=== PATIENT | male | born 1950 | race Caucasian/White ===

== ENCOUNTER → 2018-06-23 | Outpatient (CLI) | payer MEDICARE ==
--- NOTE | 2018-06-23 11:45 | US ---
EXAMINATION TYPE: US abdomen complete DATE OF EXAM: 06/23/2018 COMPARISON: CT chest December 09, 2011 CLINICAL HISTORY: R10.84 Abdominal Pain. Patient ate pulled pork and had bad indigestion about 2 week s ago, better now. LUQ pain for years after bypass surgery per patient. Spleen surgically removed at age 7 due to injury. Limited and difficult exam due to patient body habitus and overlying bowel gas EXAM MEASUREMENTS: Liver Length: 22 cm Gallbladder Wall: 0.2 cm CBD: 0.5 cm Spleen: Surgically absent Right Kidney: 12.8 x 5.8 x 5.3 cm Left Kidney: 12.3 x 6.0 x 5.7 cm Pancreas: Obscured by bowel gas Liver: Heterogenous. Echogenic. Enlarged. Two areas visualized adjacent to the gallbladder, largest measuring 2.5 x 0.6 x 2.3 cm, probable fatty sparring Gallbladder: wnl Evidence for sonographic Ruiz's sign: No CBD: wnl as visualized, distal portion obscured by bowel gas Spleen: Surgically absent. Within the splenic fossa, there is a cystic area of unknown etiology visu alized measuring 6.3 x 4.4 x 5.0 cm Right Kidney: No hydronephrosis. Cystic area lower pole measuring 4.3 x 3.5 x 3.5 cm Left Kidney: No hydronephrosis. Cystic area mid pole measuring 1.5 x 1.7 x 1.3 cm Upper IVC: wnl Abd Aorta: Obscured by bowel gas, limited visualization. Visualized portions show atherosclerotic ch anges. No sonographic evidence for AAA in visualized portions. Pancreas is obscured by overlying bowel gas on images saved. IVC is seen near hepatic dome. Visualize d liver is heterogeneously hyperechoic without intrahepatic ductal dilatation. Evaluation for focal m asses is suboptimal due to the heterogeneity. Findings favor diffuse fatty infiltration as there is s uggestion of sparing near gallbladder fossa. No shadowing mobile gallstones are seen in gallbladder. Technologist schmidt 4.3 cm simple appearing cyst lower pole level right kidney. Technologist schmidt sma ller 1.7 cm simple appearing cyst lower pole level left kidney. Residual splenosis on CT are identifi ed not clearly identified on ultrasound images saved, largest measures almost 5 cm axial image 64. IMPRESSION: Suboptimal study, diffuse fatty infiltration of liver is redemonstrated. Recurrent spleno sis is noted. No acute finding identified on images saved.
== END | disposition home or self-care (01) ==
LOC: RADUSWWP 08:38
PROVIDERS: ATTEND Internal Medicine Geriatric Medicine
DX: K76.0 Fatty (change of) liver, not elsewhere classified (principal); D73.89 Other diseases of spleen
CPT/HCPCS: 76700

== ENCOUNTER → 2018-08-11 | Outpatient (CLI) | payer MEDICARE ==
[2018-08-11 13:32] LABS: HCT 46.6 % (39.0-53.0); HGB 14.8 gm/dL (13.0-17.5); MCH 29.6 pg (25.0-35.0); MCHC 31.8 g/dL (31.0-37.0); MCV 93.1 fL (80.0-100.0); Mean Platelet Volume 7.1; Platelet Count 327 k/uL (150-450); RDW 13.7 % (11.5-15.5); WBC 10.1 k/uL (3.8-10.6)
[2018-08-11 13:46] LABS: Anion Gap 9 mmol/L; Blood Urea Nitrogen 22 mg/dL (9-20); Carbon Dioxide 27 mmol/L (22-30); Chloride 106 mmol/L (98-107); Potassium 4.3 mmol/L (3.5-5.1); Sodium 142 mmol/L (137-145)
== END ==
LOC: LABPAT 12:07
PROVIDERS: ATTEND Internal Medicine Interventional Cardiology
DX: Z01.812 Encounter for preprocedural laboratory examination (principal); I25.10 Atherosclerotic heart disease of native coronary artery without angina pectoris; I10 Essential (primary) hypertension; E78.2 Mixed hyperlipidemia
CPT/HCPCS: 80051; 82565; 84520; 85027

== ENCOUNTER → 2018-08-15 | Day surgery (SDC) | payer MEDICARE ==
[2018-08-12 09:50] VITALS: BMI 40.1
[~2018-08-15] MED LIST: ALPRAZolam 0.25 MG TAB PO PRN; ALPRAZolam 0.5 MG TAB PO PRN; ASPIRIN 325 MG TAB PO STA; ATORVASTATIN 80 MG TAB PO ONE; HEPARIN SODIUM 1,000 UN/ML (10ML VL) ONE; LIDOCAINE 1% INJ 10MG/ML (20 ML MDV) ONE; MIDAZOLAM 2 MG/2 ML VIAL ONE; NITROGLYCERIN SL TABS 0.4 MG TAB SUBLINGUAL PRN; SODIUM CHLORIDE 0.9% 1,000 ML IV ONE; SODIUM CHLORIDE 0.9% 1,000 ML in EMPTY BAG 1 BAG IV ONE; VERAPAMIL 2.5 MG/ML 2 ML AMP ONE; fentaNYL (PF) 50 MCG/ML 2 ML AMP ONE
[2018-08-15 10:52] VITALS: BP 134/75; PULSE 58; RESP 16; TEMP 97.7
[2018-08-15 11:13] LABS: Glucose,Whole Blood 117 mg/dL (75-99)
== END ==
LOC: CATHCVL 10:20
PROVIDERS: ATTEND Internal Medicine Interventional Cardiology
DX: Z53.9 Procedure and treatment not carried out, unspecified reason (principal)

== ENCOUNTER 2018-08-16 11:04 | Day surgery (SDC) | payer MEDICARE ==
[~2018-08-16 11:04] MED LIST changes: -ALPRAZolam 0.25 MG TAB PO PRN; -ALPRAZolam 0.5 MG TAB PO PRN; +ASPIRIN 325 MG TAB PO ONE; -ASPIRIN 325 MG TAB PO STA; -ATORVASTATIN 80 MG TAB PO ONE; -HEPARIN SODIUM 1,000 UN/ML (10ML VL) ONE; -LIDOCAINE 1% INJ 10MG/ML (20 ML MDV) ONE; -MIDAZOLAM 2 MG/2 ML VIAL ONE; -SODIUM CHLORIDE 0.9% 1,000 ML IV ONE; -VERAPAMIL 2.5 MG/ML 2 ML AMP ONE; -fentaNYL (PF) 50 MCG/ML 2 ML AMP ONE
[2018-08-16 11:47] VITALS: RESP 18
[2018-08-16] MEDS ORDERED: MIDAZOLAM 2 MG/2 ML VIAL IVP ONE ×2 (12:54→13:05)
[2018-08-16] MEDS ORDERED: LIDOCAINE 1% INJ 10MG/ML (20 ML MDV) SQ ONE (13:01)
[2018-08-16] MEDS ORDERED: fentaNYL (PF) 50 MCG/ML 2 ML AMP IVP ONE (13:02)
[2018-08-16] MEDS ORDERED: IOPAMIDOL-370 125ML BTL INJ ONE (13:25)
[2018-08-16] MEDS ORDERED: IOPAMIDOL-370 50ML BTL INJ ONE (13:33)
[2018-08-16] MEDS ORDERED: IOPAMIDOL-370 100ML BTL INJ ONE (13:35)
[2018-08-16] MEDS ORDERED: SODIUM CHLORIDE 0.9% 1,000 ML IV SCH (13:45)
[2018-08-16] MEDS ORDERED: RX INFO: IV CONTRAST WAS GIVEN 1 EACH MISC MISCELLANE PRN (13:45)
[2018-08-16] MEDS ORDERED: METOPROLOL TARTRATE 25 MG TAB PO STA (14:39)
[2018-08-16] MEDS ORDERED: LISINOPRIL 20 MG TAB PO STA (14:56)
[2018-08-16] MEDS ORDERED: hydrALAZINE HCL 20 MG/ML 1 ML VIAL ONE (16:25)
[2018-08-16] MEDS: hydrALAZINE HCL 20 MG/ML 1 ML VIAL IVP STA ×2 (16:30→16:31)
[2018-08-16] MEDS ORDERED: ACETAMINOPHEN TAB 325 MG TAB PO PRN (16:31)
[2018-08-16 16:44] LABS: Glucose,Whole Blood 98 mg/dL (75-99)
[2018-08-16] MEDS ORDERED: ENALAPRILAT 1.25 MG/ML 1 ML VIAL ONE (17:02)
[2018-08-16] MEDS ORDERED: hydrALAZINE HCL 20 MG/ML 1 ML VIAL IVP STA (17:04)
[2018-08-16] MEDS ORDERED: ENALAPRILAT 1.25 MG/ML 1 ML VIAL IVP STA (17:04)
[2018-08-16 17:57] VITALS: BP 161/89; PULSE 87; TEMP 97.8
--- NOTE | 2018-08-17 14:39 | LTR ---
DATE OF SERVICE: August 17, 2018. RE: Tate De Anda Dear Dr. Henderson; Mr. Tate De Anda was experiencing symptoms of chest discomfort and shortness of breath concerning for angina. He underwent a myocardial perfusion imaging stress test and that showed large area of ischemia involving the anterior and lateral wall of the left ventricle. Because of that, heart catheterization was advised. Mr. De Anda underwent a heart catheterization which revealed severe triple-vessel coronary artery disease with patent JOSEPH to LAD and occlusion of old saphenous vein grafts. I am going to ask the surgeon to evaluate the patient for redo CABG. If the patient turned to be high risk for redo CABG, he would benefit from PCI of the left circumflex. Thank you for allowing us to participate in his care and please do not hesitate to call if you have any question or concern. Sincerely, MD SALUD Gonzalez / JAKE: [id number] /
--- NOTE | 2018-08-17 15:55 | CC ---
CARDIAC CATHETERIZATION REPORT DATE OF SERVICE: August 17, 2018 PERFORMING PHYSICIAN: Eitan Peters MD, tool and die maker level five. PROCEDURE PERFORMED: 1. Selective left and right coronary angiogram. 2. SVG to diagonal angiogram. 3. Left internal mammary artery angiogram. 4. SVG to right coronary artery angiogram. 5. Aortic root angiogram. INDICATION: This is a very pleasant 68-year-old gentleman with a history significant for coronary artery disease and prior coronary artery bypass grafting with known a JOSEPH to LAD, SVG to diagonal, a SVG to OM, and SVG to right coronary artery, was experiencing exertional symptoms of shortness of breath as well as chest discomfort. He underwent a myocardial perfusion imaging stress test and that revealed an anterior and lateral ischemia. Because of that, a heart catheterization was advised. APPROACH: Right common femoral artery. COMPLICATION: None. LEVEL OF SEDATION: Moderate with sedation length of about 45 minutes. PROCEDURE DESCRIPTION: After obtaining an informed consent, the patient was brought to the cardiac laborer stores. The right common femoral artery was cannulated using micropuncture technique, the micropuncture wire passed easily then I placed a 6-Macanese sheath in the right common femoral artery. After that, I did selective right and left coronary angiogram using JL4 and JR4 catheters. I did after that SVG to diagonal angiogram using the JR4 catheter. The left internal mammary artery angiogram was performed using the IM catheter. After that I did left heart catheterization and subsequently aortic root angiogram using a 6-Macanese pigtail catheter. The procedure was completed without any complication. SELECTIVE CORONARY ANGIOGRAM: 1. The left main is a large caliber vessel and seems to be angiographically normal. It bifurcates into the left circumflex and left anterior descending artery. 2. The left circumflex is a large caliber vessel. It is a nondominant vessel. The proximal circumflex appeared to have mild disease only. The mid circumflex appeared to be normal and gives rise into a large OM branch. That OM branch in the midportion has a tight lesion appeared to be in the range of 70%. 3. The left anterior descending artery is 100% occluded in the proximal portion by the bifurcation of the medium-sized diagonal branch. 4. The right coronary artery is 100% occluded in the mid portion as well. CORONARY BYPASS ANGIOGRAM: 1. The SVG to diagonal is subtotally occluded. 2. The JOSEPH to LAD is patent. The LAD itself distal to the JOSEPH anastomosis appeared to have a lesion in the range of 60% to 70%. 3. The SVG to right coronary artery is occluded in the proximal portion. 4. No other bypasses where opacified upon doing the aortic root injection. LEFT HEART CATHETERIZATION: The left ventricular end-diastolic pressure was about 12 mmHg and no gradient was identified across the aortic valve. AORTIC ROOT ANGIOGRAM: The aortic root angiogram was performed in the SAMPSON projection and using a power injection. I only was able to opacify 1 graft which is the SVG to diagonal upon doing the aortic root angiogram. The aortic root appeared to be mildly dilated. CONCLUSION: 1. Severe triple-vessel coronary artery disease. 2. Patent JOSEPH to LAD. 3. Subtotally occluded SVG to diagonal branch with very poor outflow. 4. Occluded SVG to left circumflex. 5. Occluded SVG to right coronary artery. POSTPROCEDURE MANAGEMENT: 1. Maximize medical treatment at this point of time. 2. I want to ask cardiothoracic surgeon to evaluate the patient for redo CABG. 3. If the patient turns to be high risk for redo CABG, I will consider doing a PCI of the left circumflex. MMODL / IJN: [id number] /
== END 2018-08-16 19:20 | disposition home or self-care (01) ==
LOC: CATHCVL 11:04 → 1SOBS 14:03 → CATHCVL 19:20
PROVIDERS: ATTEND Internal Medicine Interventional Cardiology
DX: I25.710 Atherosclerosis of autologous vein coronary artery bypass graft(s) with unstable angina pectoris (principal); I25.110 Atherosclerotic heart disease of native coronary artery with unstable angina pectoris; I25.82 Chronic total occlusion of coronary artery; I10 Essential (primary) hypertension; Z95.1 Presence of aortocoronary bypass graft; Z95.5 Presence of coronary angioplasty implant and graft; E78.5 Hyperlipidemia, unspecified; Z79.84 Long term (current) use of oral hypoglycemic drugs; Z79.82 Long term (current) use of aspirin; Z79.899 Other long term (current) drug therapy; Z72.0 Tobacco use; E78.00 Pure hypercholesterolemia, unspecified
CPT/HCPCS: 93459; J2250; J0360; J2001; J3010; Q9967 ×3; 93567

== ENCOUNTER → 2018-09-15 | Outpatient (CLI) | payer MEDICARE ==
[2018-09-15 09:58] LABS: HCT 42.3 % (39.0-53.0); HGB 13.8 gm/dL (13.0-17.5); MCH 29.9 pg (25.0-35.0); MCHC 32.6 g/dL (31.0-37.0); MCV 91.5 fL (80.0-100.0); Mean Platelet Volume 7.5; Platelet Count 269 k/uL (150-450); RBC 4.62 m/uL (4.30-5.90); RDW 13.5 % (11.5-15.5); WBC 10.5 k/uL (3.8-10.6)
[2018-09-15 10:00] LABS: INR 0.9 (<1.2); Partial Thromboplastin Time 23.3 sec (22.0-30.0)
[2018-09-15 10:13] LABS: Appearance,Urine Clear (Clear); Bilirubin,Urine Negative (Negative); Blood,Urine Negative (Negative); Calcium Oxalate Crystals,Urine Occasional /hpf; Color,Urine Yellow; Glucose,Urine (UA) Negative (Negative); Ketones,Urine Negative (Negative); Leukocyte Esterase,Urine Negative (Negative); Mucus,Urine Rare /hpf; Nitrite,Urine Negative (Negative); Protein,Urine 1+ (Negative); Squamous Epithelial Cell,Urine <1 /hpf (0-4); Urobilinogen,Urine <2.0 mg/dL (<2.0); WBC,Urine 1 /hpf (0-5)
[2018-09-15 10:34] LABS: ALT 36 U/L (21-72); AST 22 U/L (17-59); Albumin 4.3 g/dL (3.5-5.0); Alkaline Phosphatase 82 U/L (38-126); Anion Gap 11 mmol/L; Blood Urea Nitrogen 18 mg/dL (9-20); Calcium 9.7 mg/dL (8.4-10.2); Carbon Dioxide 24 mmol/L (22-30); Chloride 107 mmol/L (98-107); Cholesterol 114 mg/dL (<200); Glucose 153 mg/dL (74-99); HDL Cholesterol 23 mg/dL (40-60); LDL Cholesterol,Calculated 63 mg/dL (0-99); Magnesium 1.8 mg/dL (1.6-2.3); Sodium 142 mmol/L (137-145); Total Bilirubin 0.6 mg/dL (0.2-1.3); Total Protein 7.4 g/dL (6.3-8.2); Triglycerides 138 mg/dL (<150)
--- NOTE | 2018-09-15 13:16 | US ---
EXAMINATION TYPE: US carotid duplex BILAT DATE OF EXAM: 09/15/2018 COMPARISON: NONE CLINICAL HISTORY: PRE CARDIAC SURGERY. EXAM MEASUREMENTS: RIGHT: Peak Systolic Velocity (PSV) cm/sec ----- Right CCA: 123.7 ----- Right ICA: 107.6 ----- Right ECA: 141.5 ICA/CCA ratio: 0.9 RIGHT: End Diastole cm/sec ----- Right CCA: 28.4 ----- Right ICA: 28.4 ----- Right ECA: 20.4 LEFT: Peak Systolic Velocity (PSV) cm/sec ----- Left CCA: 122.1 ----- Left ICA: 130.2 ----- Left ECA: 103.0 ICA/CCA ratio: 1.1 LEFT: End Diastole cm/sec ----- Left CCA: 23.6 ----- Left ICA: 23.6 ----- Left ECA: 16.3 VERTEBRALS (direction of flow): Right Vertebral: Antegrade Left Vertebral: Antegrade Rhythm: Normal Mild grayscale atheromatous plaquing. No significant stenosis seen. Mildly elevated right ECA and lef t ICA. IMPRESSION: Mildly elevated peak systolic velocities within the left internal carotid artery and rig ht external carotid artery however there is no abnormal internal carotid artery to common carotid art deanna ratio and therefore stenosis is less than 50%, nonhemodynamically significant. Criteria for Assigning % of Stenosis / Diameter reduction (Estimation based on the indirect measurements of the internal carotid artery velocities (ICA PSV). 1. Normal (no stenosis)=ICA PSV < 125 cm/s: ratio < 2.0: ICA EDV<40 cm/s. 2. Less than 50% stenosis=ICA PSV < 125 cm/s: ratio < 2.0: ICA EDV<40 cm/s. 3. 50 to 69% stenosis=ICA PSV of 125 to 230 cm/s: ration 2.0 ? 4.0: ICA EDV 40-100 cm/s. 4. Greater than 70% stenosis to near occlusion= ICA PSV > 230 cm/s: ratio > 4.0: ICA EDV > 100 cm/s. 5. Near occlusion= ICA PSV velocities may be low or undetectable: variable ratio and ICA EDV. 6. Total occlusion=unable to detect flow.
--- NOTE | 2018-09-15 14:18 | XR ---
EXAMINATION TYPE: XR chest 2V DATE OF EXAM: 09/15/2018 COMPARISON: 12/17/2010 HISTORY: Presurgical evaluation. TECHNIQUE: Frontal and lateral views of the chest are obtained. FINDINGS: There is cardiomegaly and post CABG changes of the chest. Flattening of the diaphragms on the lateral images suggests underlying COPD. Mild multilevel degenerative changes of the thoracic spi ne are seen. No focal consolidation, pleural effusion or pneumothorax. IMPRESSION: No acute cardiopulmonary process. Findings suggesting COPD. Correlate with pulmonary fun ction tests.
--- NOTE | 2018-09-15 14:20 | P.PN ---
Progress Note - Text Progress Note Date: 09/15/18 5 meter walk test: #1 3.36 sec #2 3.55 sec #3 2.67 sec
[2018-09-15 19:40] LABS: Hepatitis A Antibody IgM Non-Reactive (Non-Reactive); Hepatitis B Core IgM Non-Reactive (Non-Reactive)
[2018-09-15 19:43] LABS: Hemoglobin A1C 6.5 % (4.0-6.0)
--- NOTE | 2018-09-16 10:55 | ECHOF ---
Referral Reason:Z01.818 MEASUREMENTS -------- HEIGHT: 180.3 cm WEIGHT: 133.8 kg BP: RVIDd: 3.5 cm (< 3.3) IVSd: 1.3 cm (0.6 - 1.1) LVIDd: 5.7 cm (3.9 - 5.3) LVPWd: 1.4 cm (0.6 - 1.1) IVSs: 1.9 cm LVIDs: 3.5 cm LVPWs: 1.9 cm LAESV Index (A-L): 56.42 ml/m Ao Diam: 3.6 cm (2.0 - 3.7) AV Cusp: 1.6 cm (1.5 - 2.6) LA Diam: 5.7 cm (2.7 - 3.8) EPSS: 0.5 cm MV E Wilfredo: 0.93 m/s MV DecT: 222 ms MV A Wilfredo: 1.07 m/s MV E/A Ratio: 0.87 AV maxP.43 mmHg AV meanP.31 mmHg RAP: 15.00 mmHg RVSP: 33.66 mmHg MV EF SLOPE: 159.35 mm/s (70 - 150) MV EXCURSION: 2.09 cm (> 18.000) FINDINGS -------- Sinus rhythm. This was a technically adequate study. The left ventricular size is normal. There is mild concentric left ventricular hypertrophy. Overa ll left ventricular systolic function is normal with, an EF between 55 - 60 %. The right ventricle is mildly enlarged. LA is severely dilated >40 ml/m2 The right atrium is normal in size. Aortic valve is trileaflet and is mildly thickened. There is no evidence of aortic regurgitation. There is no evidence of aortic stenosis. The mitral valve is normal. Mild mitral regurgitation is present. Mild tricuspid regurgitation present. Right ventricular systolic pressure is normal at < 35 mmHg. The right ventricular systolic pressure, as measured by Doppler, is 33.66mmHg. The pulmonic valve was not well visualized. Trace/mild (physiologic) pulmonic regurgitation. The aortic root size is normal. The inferior vena cava is dilated with poor inspiratory collapse which is consistent with estimated r ight atrial pressure of 20 mmHg. There is no pericardial effusion. CONCLUSIONS -------- 1. Sinus rhythm. 2. This was a technically adequate study. 3. The left ventricular size is normal. 4. There is mild concentric left ventricular hypertrophy. 5. Overall left ventricular systolic function is normal with, an EF between 55 - 60 %. 6. The right ventricle is mildly enlarged. 7. LA is severely dilated >40 ml/m2 8. Aortic valve is trileaflet and is mildly thickened. 9. The mitral valve is normal. 10. Mild mitral regurgitation is present. 11. Mild tricuspid regurgitation present. 12. Right ventricular systolic pressure is normal at < 35 mmHg. 13. Trace/mild (physiologic) pulmonic regurgitation. 14. The aortic root size is normal. 15. The inferior vena cava is dilated with poor inspiratory collapse which is consistent with estimat ed right atrial pressure of 20 mmHg. 16. There is no pericardial effusion. CNC MAINTENANCE MECHANIC: Rob Fernandez RDCS
== END ==
LOC: LABPAT 07:22
PROVIDERS: ATTEND Thoracic Surgery (Cardiothoracic Vascular Surgery)
DX: Z01.818 Encounter for other preprocedural examination (principal); Z01.812 Encounter for preprocedural laboratory examination; E78.5 Hyperlipidemia, unspecified; E11.8 Type 2 diabetes mellitus with unspecified complications; I65.23 Occlusion and stenosis of bilateral carotid arteries; I25.10 Atherosclerotic heart disease of native coronary artery without angina pectoris; Z79.01 Long term (current) use of anticoagulants; Z79.899 Other long term (current) drug therapy
CPT/HCPCS: 36415; 71046; 80053; 80061; 80074; 81001; 83036; 83735; 84443; 85027; 85610; 85730; 87070; 87086; 93005; 93306; 93880; 93922; 93923; 93930; 93970

== ENCOUNTER → 2018-09-16 | Outpatient (CLI) | payer MEDICARE ==
--- NOTE | 2018-09-16 16:03 | CT ---
EXAMINATION TYPE: CT chest w con DATE OF EXAM: 09/16/2018 COMPARISON: 12/09/2011 HISTORY: pre surgical testing CT DLP: 966 mGycm, Automated exposure control for dose reduction was used. CONTRAST: Performed injected with 100 mL of Isovue 300. TECHNIQUE: Axial images were obtained at 5 mm thick sections. Reconstructed images are reviewed on [employer] computer in the coronal plane. FINDINGS: Portion of the thyroid visualized is normal. No suspicious lung nodules or focal infiltrates are present. No enlarged mediastinal or hilar adenopathy is evident. The ascending aorta diameter at the level o f the main pulmonary artery is 4.5 cm. The main pulmonary artery diameter at the bifurcation is 3.[address] sections are obtained through the upper abdomen. There is a 4.3 cm cyst in the anterior me dial aspect mid right kidney measuring 3 Hounsfield units. At the same level there is a 0.3 cm nonobs tructing renal stone. A 1.5 cm hypodensities in the anterior inferior pole left kidney. Large splenul e is present from previous exam appears stable. IMPRESSIONS: 1. Abdominal aortic aneurysm measuring 4.5 cm the main pulmonary artery. This is stable from 2011. 2. Right renal cyst and nonobstructing right renal stone.
== END ==
LOC: RADCTMAIN 14:18
PROVIDERS: ATTEND Thoracic Surgery (Cardiothoracic Vascular Surgery)
DX: Z01.810 Encounter for preprocedural cardiovascular examination (principal)
CPT/HCPCS: 71260; Q9967

== ENCOUNTER 2018-09-23 05:31 | Inpatient (IN) | payer MEDICARE ==
[~2018-09-23 05:31] MED LIST changes: +ALBUMIN HUMAN 25% 50 ML IV ONE; +ALBUMIN HUMAN 5% 500 ML IVPB ONE; +ATORVASTATIN 10 MG TAB PO ONE; +CALCIUM CHLORIDE 100 MG/ML 10 ML SYRINGE IV ONE; +CARDIOPLEGIC SOLN (K+ 16 MEQ/L 1,000 ML with SODIUM BICARB (1 MEQ/ML) 20 ML, LIDOCAINE ... PERFUSION ONE; +CEFAZOLIN IVPB ONE; +CHLORHEXIDINE GLUCONATE 15 ML CUP MUCOUS MEM ONE; +CLEVIDIPINE BUTYRATE 25 MG in EMPTY BAG 1 BAG IV ONE; +DILTIAZEM 50 MG in SODIUM CHLORIDE 0.9% 40 ML IV ONE; +HEPARIN SODIUM 1,000 UN/ML (10ML VL) IV ONE; +HEPARIN SODIUM,PORCINE 5,000 UNIT in SODIUM CHLORIDE 0.9% 500 ML 500 ML IV ONE; +INSULIN REGULAR 100 UNIT in SODIUM CHLORIDE 0.9% 100 ML IV ONE; +LACTATED RINGERS 1,000 ML IV ONE; +MAGNESIUM SULFATE MG 500 MG/ML IV ONE; +MANNITOL 25% 12.5 GM/50 ML VIAL IV ONE; +METOPROLOL TARTRATE 12.5 MG TAB PO ONE; +NITROGLYCERIN SL TABS 0.4 MG TAB SUBLINGUAL ONE; -NITROGLYCERIN SL TABS 0.4 MG TAB SUBLINGUAL PRN; +NITROGLYCERIN-D5W PMX 25 MG/250 ML BTL IV ONE; +NITROGLYCERIN-D5W PMX 50 MG in DEXTROSE/WATER 1 250ML.BAG IV ONE; +NOREPINEPHRINE 4 MG in SODIUM CHLORIDE 0.9% 250 ML IV ONE; +PAPAVERINE 360 MG in SODIUM CHLORIDE 0.9% 90 ML IV ONE; +PHENYLEPHRINE 40 MG in SODIUM CHLORIDE 0.9% 250 ML IV ONE; +PHENYLEPHRINE-0.9% NACL SYG 1 MG/10 ML SYRINGE IV ONE; +PROPOFOL 100 ML IV ONE; +PROTAMINE SULFATE 10 MG/ML 25 ML VIAL IV ONE; +PROTAMINE SULFATE 250 MG in EMPTY BAG 1 BAG IV ONE; +SODIUM BICARB 8.4% 50 ML SYR (1 MEQ/ML) IV ONE; +SODIUM CHLORIDE 0.9% 1,000 ML IV ONE; -SODIUM CHLORIDE 0.9% 1,000 ML in EMPTY BAG 1 BAG IV ONE; +SODIUM CHLORIDE 0.9% IVPB ONE; +TRANEXAMIC ACID 2,000 MG in SODIUM CHLORIDE 0.9% 180 ML IV ONE; +ceFAZolin 1,000 MG in SODIUM CHLORIDE 0.9% IRRIGATIO 1,000 ML IRRIGATION ONE; +ceFAZolin 3 GM in SODIUM CHLORIDE 0.9% 30 ML IVPB ONE
[2018-09-23 06:31] LABS: Glucose,Whole Blood 119 mg/dL (75-99)
[2018-09-23] MEDS ORDERED: TRANEXAMIC ACID 1,000 MG/10 ML VIAL ONE (08:09)
[2018-09-23] MEDS ORDERED: fentaNYL (PF) 50 MCG/ML 50 ML VIAL ONE (08:09)
[2018-09-23] MEDS ORDERED: PROPOFOL 10 MG/ML 20 ML VIAL IV ONE (08:09)
[2018-09-23] MEDS ORDERED: MAGNESIUM SULFATE 4 MEQ/ML 10ML VIAL ONE (08:09)
[2018-09-23] MEDS ORDERED: SODIUM CHLORIDE 0.9% 250 ML BAG ONE (08:09)
[2018-09-23] MEDS ORDERED: ALBUMIN HUMAN 5% 500 ML VIAL IVPB ONE (08:09)
[2018-09-23] MEDS ORDERED: MIDAZOLAM 2 MG/2 ML VIAL ONE (08:09)
[2018-09-23] MEDS ORDERED: PHENYLEPHRINE-0.9% NACL SYG 1 MG/10 ML SYRINGE ONE (08:09)
[2018-09-23] MEDS ORDERED: ceFAZolin 1,000 MG VIAL ONE (08:09)
[2018-09-23] MEDS ORDERED: PROTAMINE SULFATE 10 MG/ML 25 ML VIAL IV ONE (08:09)
[2018-09-23] MEDS ORDERED: SUCCINYLCHOLINE CHLORIDE VIAL 200 MG/10 ML VIAL IV ONE (08:09)
[2018-09-23] MEDS ORDERED: fentaNYL (PF) 50 MCG/ML 2 ML AMP ONE (08:09)
[2018-09-23] MEDS ORDERED: HEPARIN SODIUM,PORCINE 10,000 UNIT/ML 1 ML VIAL ONE (08:09)
[2018-09-23] MEDS ORDERED: ELECTROLYTE-R (PH 7.4) 1,000 ML IV.SOLN IV ONE (08:09)
[2018-09-23] MEDS ORDERED: SODIUM CHLORIDE 0.9% IRRIG 1,000 ML BTL IRRIGATION ONE (08:09)
[2018-09-23] MEDS ORDERED: VECURONIUM 10 MG VIAL IV ONE (08:09)
[2018-09-23 08:49] LABS: ABG Base Excess 0.3 mmol/L; ABG HCO3 26 mmol/L (21-25); ABG Oxygen Saturation 99.5 % (94-97); ABG PCO2 43 mmHg (35-45); ABG PH 7.38 (7.35-7.45); ABG PO2 172 mmHg (83-108); ABG Potassium Whole Blood 3.7 mmol/L (3.4-4.5); ABG Sodium Whole Blood 142 mmol/L (135-146); ABG TCO2 27 mmol/L (19-24)
[2018-09-23] MEDS ORDERED: DILTIAZEM 50 MG in SODIUM CHLORIDE 0.9% 40 ML IV ONE (09:00)
[2018-09-23] MEDS ORDERED: TRANEXAMIC ACID 2,000 MG in SODIUM CHLORIDE 0.9% 180 ML IV ONE (09:00)
[2018-09-23 12:28] LABS: ABG Base Excess -0.1 mmol/L; ABG HCO3 25 mmol/L (21-25); ABG Oxygen Saturation 98.5 % (94-97); ABG PCO2 42 mmHg (35-45); ABG PH 7.39 (7.35-7.45); ABG PO2 113 mmHg (83-108); ABG Potassium Whole Blood 4.3 mmol/L (3.4-4.5); ABG Sodium Whole Blood 142 mmol/L (135-146); ABG TCO2 26 mmol/L (19-24)
[2018-09-23 12:53] LABS: ABG Base Excess -0.4 mmol/L; ABG HCO3 25 mmol/L (21-25); ABG Oxygen Saturation 97.4 % (94-97); ABG PCO2 43 mmHg (35-45); ABG PH 7.37 (7.35-7.45); ABG PO2 94 mmHg (83-108); ABG Potassium Whole Blood 4.1 mmol/L (3.4-4.5); ABG Sodium Whole Blood 142 mmol/L (135-146); ABG TCO2 26 mmol/L (19-24)
[2018-09-23 13:32] LABS: ABG Base Excess -0.2 mmol/L; ABG HCO3 25 mmol/L (21-25); ABG Oxygen Saturation 99.8 % (94-97); ABG PCO2 43 mmHg (35-45); ABG PH 7.38 (7.35-7.45); ABG PO2 257 mmHg (83-108); ABG Sodium Whole Blood 142 mmol/L (135-146); ABG TCO2 26 mmol/L (19-24)
[2018-09-23 14:00] LABS: ABG Base Excess -0.5 mmol/L; ABG HCO3 25 mmol/L (21-25); ABG Oxygen Saturation 99.7 % (94-97); ABG PCO2 43 mmHg (35-45); ABG PH 7.37 (7.35-7.45); ABG PO2 308 mmHg (83-108); ABG Potassium Whole Blood 4.1 mmol/L (3.4-4.5); ABG Sodium Whole Blood 142 mmol/L (135-146); ABG TCO2 26 mmol/L (19-24)
[2018-09-23 15:00] LABS: ABG Base Excess -0.9 mmol/L; ABG HCO3 25 mmol/L (21-25); ABG PCO2 44 mmHg (35-45); ABG PH 7.36 (7.35-7.45); ABG PO2 103 mmHg (83-108); ABG Sodium Whole Blood 141 mmol/L (135-146); ABG TCO2 26 mmol/L (19-24)
[2018-09-23] MEDS ORDERED: ceFAZolin IN SWFI 2 GM/20 ML SYRINGE IVP SCH (16:19)
[2018-09-23] MEDS ORDERED: Magnesium Replacement Protocol 1 EACH MISC MISCELLANE PRN (16:19)
[2018-09-23] MEDS ORDERED: BENZOCAINE/MENTHOL LOZENG 1 EACH LOZENGE MUCOUS MEM PRN (16:19)
[2018-09-23] MEDS ORDERED: Phosphorus Replacement Protoco 1 EACH MISC MISCELLANE PRN (16:19)
[2018-09-23] MEDS ORDERED: DEXTROSE 5% IN WATER 100 ML with AMIODARONE 150 MG IV PRN (16:19)
[2018-09-23] MEDS ORDERED: ONDANSETRON 4 MG/2 ML VIAL IVP PRN (16:19)
[2018-09-23] MEDS ORDERED: METOCLOPRAMIDE 5 MG/ML 2 ML VIAL IVP PRN (16:19)
[2018-09-23] MEDS ORDERED: CALCIUM CHLORIDE 1,000 MG in SODIUM CHLORIDE 0.9% 100 ML IV PRN (16:19)
[2018-09-23] MEDS ORDERED: Potassium Replacement Protocol 1 EACH MISC MISCELLANE PRN (16:19)
[2018-09-23 16:33] LABS: Basophils % (A) 0 %; Eosinophils % (A) 0 %; HCT 36.2 % (39.0-53.0); HGB 11.8 gm/dL (13.0-17.5); Lymphocytes # (A) 1.2 k/uL (1.0-4.8); Lymphocytes % (A) 6 %; MCH 29.8 pg (25.0-35.0); MCHC 32.6 g/dL (31.0-37.0); MCV 91.6 fL (80.0-100.0); Monocytes % (A) 5 %; Neutrophils # (A) 17.8 k/uL (1.3-7.7); Neutrophils % (A) 89 %; Platelet Count 252 k/uL (150-450); RBC 3.95 m/uL (4.30-5.90); RDW 13.3 % (11.5-15.5); WBC 20.1 k/uL (3.8-10.6)
[2018-09-23 16:36] LABS: Glucose,Whole Blood 173 mg/dL (75-99)
--- NOTE | 2018-09-23 16:44 | XR ---
EXAMINATION TYPE: XR chest 1V portable DATE OF EXAM: 09/23/2018 COMPARISON: 09/15/2018 HISTORY: Postop cardiac surgery TECHNIQUE: Single frontal view of the chest is obtained. FINDINGS: Endotracheal tube is 3 cm from the denise in fairly good position. Right jugular catheter has tip in the main pulmonary artery. There are bilateral chest tubes. No pneumothorax. Nasogastric t ube is noted. There are chest leads. No heart failure seen. IMPRESSION: No heart failure. No pneumothorax. Inspiration is less than preoperative exam.
[2018-09-23 16:49] LABS: Partial Thromboplastin Time 23.5 sec (22.0-30.0)
[2018-09-23 16:50] LABS: ALT 28 U/L (21-72); AST 25 U/L (17-59); Alkaline Phosphatase 56 U/L (38-126); Anion Gap 8 mmol/L; Blood Urea Nitrogen 20 mg/dL (9-20); Calcium 8.2 mg/dL (8.4-10.2); Carbon Dioxide 25 mmol/L (22-30); Chloride 109 mmol/L (98-107); Glucose 159 mg/dL (74-99); Magnesium 1.7 mg/dL (1.6-2.3); Potassium 4.4 mmol/L (3.5-5.1); Sodium 142 mmol/L (137-145); Total Bilirubin 0.7 mg/dL (0.2-1.3); Total Protein 5.5 g/dL (6.3-8.2)
[2018-09-23 16:59] LABS: ABG Base Excess -1.1 mmol/L; ABG HCO3 26 mmol/L (21-25); ABG Oxygen Saturation 93.8 % (94-97); ABG PCO2 58 mmHg (35-45); ABG PH 7.26 (7.35-7.45); ABG PO2 77 mmHg (83-108); ABG TCO2 28 mmol/L (19-24)
[2018-09-23] MEDS ORDERED: NITROGLYCERIN-D5W PMX 50 MG in DEXTROSE/WATER 1 250ML.BAG IV SCH (17:00)
[2018-09-23] MEDS: LACTATED RINGERS 1,000 ML IV SCH (17:19)
[2018-09-23 17:22] LABS: Glucose,Whole Blood 157 mg/dL (75-99)
[2018-09-23] MEDS: CLEVIDIPINE BUTYRATE 25 MG in EMPTY BAG 1 BAG IV SCH (17:23)
--- NOTE | 2018-09-23 17:24 | P.OP ---
Date of Procedure: 09/23/18 Preoperative Diagnosis: Coronary artery disease, history of coronary artery bypass grafting, closed vein grafts and patent JOSEPH to the LAD with disease in the LAD distal to the anastomosis. Postoperative Diagnosis: Same Procedure(s) Performed: Redo coronary CABG with off-pump coronary bypass grafting 5 specifically sequential left radial artery graft to diagonal and LAD, saphenous vein graft to obtuse marginal, saphenous vein graft to posterior lateral branch, jump vein graft from posterior lateral graft to PDA. Endovascular right greater saphenous vein harvest. Endo radial harvest of the left radial. STEFANIE by anesthesia. Anesthesia: GETA Surgeon: Diomedes Rodríguez Deputy Court Clerk #1: Alvin Lanier Estimated Blood Loss (ml): 500 Pathology: none sent Condition: stable Disposition: ICU Indications for Procedure: 68-year-old male who is 10 years status post coronary artery bypass grafting 4 presents with accelerating anginal symptomatology. Cardiac catheterization showed closed vein grafts to the right coronary artery branches 2, patent saphenous vein graft to diagonal which is occluded this diagonal fills a separate diagonal branch through retrograde collateral flow. Patent JOSEPH to the LAD with severe disease of the [place] LAD just beyond the JOSEPH anastomosis obviating the benefit of that graft. Operative Findings: There were diffuse adhesions throughout the mediastinum and left pleural space. The right pleural space was free. Coronary targets are as noted below. Ascending aorta was mildly dilated with a maximal diameter just below 4 cm. Aorta itself was soft but tissue was thickened and stiff. A good radial artery conduit was obtained. Saphenous vein was harvested from the right lower extremity from ankle to groin. The saphenous vein was of adequate quality, somewhat large in diameter and somewhat thickened. Description of Procedure: The patient was brought to the operating room, placed supine on the operating table, anesthetized and intubated. [place]-Wally catheter been placed via the right internal jugular approach. [place] and nasogastric tubes were placed. STEFANIE probe was placed. The anterior torso bilateral lower extremities and left upper extremity were sterilely prepped and draped. The left radial artery was harvested using endovascular harvest technique. The right greater saphenous vein was harvested using endovascular vein harvest technique. Simultaneous to the conduit harvest the chest was reopened. The old skin scar was excised and incision carried down through skin and subcutaneous tissue to the sternum. Sternal wires were identified and cut. The sternum was divided in the midline using the redo saw. The wires were removed once the sternum was cut and then careful entry into bilateral chest cavities was performed. We first freed the right ventricle from the left hemisternum using sharp and electrocautery dissection. This was carried up to the upper portion of the sternum. Was then carried back into the pleural space. The pleural space was at least partially fused. A Rultract retractor was used to better expose the left space. Adhesions between the lung and the upper part of the right and left ventricle were taken down with sharp dissection and the left internal mammary artery was identified. Portion of the left internal mammary artery was freed from its adhesions to the lung and mediastinal tissue before it entered the pericardial sac. We then directed our attention to the right hemisternum which was freed from its adhesions to the mediastinal fat. The right pleural space was entered and was free. Right pleural space was drained with 32-Maltese chest tube. Standard sternal retractor was placed. Careful dissection was carried out within the mediastinal space and all of the adhesions of the heart were taken down. Ascending aorta was also mobilized. There were 2 vein grafts leading to the inferior wall of the heart on the right and 1 vein graft leading to the diagonal on the left. Once we had the heart entirely freed we began grafting. Patient was systemically heparinized and a CTs were maintained greater than 250 during grafting. We began by opening the left internal mammary artery or to its entry into the pericardial sac. A linear incision was made longitudinally and blood flow control with a 3 mm flow through. Radial artery was anastomosed in side to end fashion using running 7-0 Prolene suture. This served as the proximal anastomosis for the radial graft. We next aligned the radial artery with the diagonal branch. This diagonal branch was just medial to the vein graft. There was a 1.5 mm vessel it was opened and blood flow control with a 1.5 mm flow through. [id number] anastomosis to the radial artery was performed with running 7-0 Prolene suture. 1.5 mm flow through was used to control the flow of blood and the [place] artery during the anastomosis. On completion anastomosis the flow through was removed effectively probing the proximal and distal portion of the anastomosis. Completion anastomosis the bulldog clamp is moved from proximal to distal hemostasis was noted. There was still good flow through the radial artery graft. The end of the radial artery was then prepared appropriately and anastomosed to the LAD. The LAD was grafted just beyond its disease segment beyond the JOSEPH anastomosis. Here it was a 1.5 mm vessel with some diffuse disease present. The anastomosis between the left radial artery and the left internal mammary artery was performed with running 7-0 Prolene suture. On completion anastomosis to 1.5 mm flow through was removed effectively probing the proximal distal portion anastomosis. Suture was tied with good result and hemostasis and the inflow open. A portion of saphenous vein was cut to appropriate length to reach the obtuse marginal branch. This had a relatively small proximal portion from the ankle. This was appropriate size for a passport anastomotic connector. This portion of the saphenous vein was loaded on passport anastomotic connector and connected to the ascending aorta to the left of midline in the mid ascending aorta. This proceeded without event and was hemostatic and had excellent flow through the vein graft. This was controlled with a bulldog clamp. Next a heartstring device was deployed in the proximal aorta to the right of the midline. The remaining saphenous vein was too large for anastomotic connectors. With the heartstring device deployed the proximal anastomosis of the remaining portion of vein was performed with running 5-0 Prolene suture. Completion anastomosis the heartstring device was removed and good hemostasis was noted with excellent flow in the vein graft. The inferior wall was exposed and the vein was cut to appropriate length to reach the posterior lateral branch which was a 1.75 mm vessel. Was opened and blood flow control with a 1.5 mm flow through. The vessel wall was of good quality. The anastomosis was performed with running 7- 0 Prolene suture. Completion anastomosis the flow through was removed 50 probe the proximal and distal portion anastomosis. Suture was tied with good result and hemostasis. Inflow was open and good hemostasis was again noted. The vein was of appropriate length and lay well. We now explored the area of the PDA. This vessel initially looked fairly small but at least we dissected further we found a good size vessel did have some moderate wall disease present. Was opened and noted to have a 1. 520.75 mm lumen. Blood flow was controlled with a 1.5 mm flow through. A relatively short remaining piece of saphenous vein was anastomosed in end-to-side fashion with running 7-0 Prolene suture. On completion anastomosis the flow through was removed effectively probing the proximal distal portion of the anastomosis. Suture was tied with good result and hemostasis good backbleeding was noted into the vein graft controlled with a bulldog clamp. Bulldog clamps were placed on the CLYDE graft proximally and distally and it was opened longitudinally and appropriate spot. Side to end anastomosis of the CLYDE graft to the PDA graft was performed with running 7-0 Prolene suture service the inflow for the PDA graft. Completion of this the bulldog clamps were removed both grafts were noted to lie well. Both all the anastomoses were hemostatic. We now exposed the lateral wall. The obtuse marginal branch was a 2 mm vessel heavy disease proximally and bifurcating distally. It was opened in the soft area just prior to the bifurcation and blood flow control with a 1.5 mm flow through. Piece of saphenous vein that had previously been anastomosed to the ascending aorta with the passport anastomotic connector was anastomosed in end-to-side fashion to the obtuse marginal with running 7-0 Prolene suture. Completion anastomosis to 1.5 mm flow through was removed effectively probing the proximal distal portion anastomosis. Suture was tied with good result and hemostasis. Inflow was open. Good hemostasis was continued to be noted. Heart was lowered into anatomic position. The graft lay well without any kinking. Good hemostasis was now evident throughout. Heparin was reversed with protamine. The chest was irrigated with antibiotic solution. The left pleural space was drained with a 32-Maltese chest tube and the mediastinum with a 36- Maltese chest tube. Sternum was closed with 8 sternal wires after assuring good hemostasis. Fascia was closed with 0 Ethibond subcutaneous and subcuticular layers with layers of Vicryl suture and dry sterile dressings were applied throughout patient was transferred to [facility] ICU in stable hemodynamic condition on no inotropic support having received no blood transfusions.
[2018-09-23] MEDS: DILTIAZEM 50 MG in SODIUM CHLORIDE 0.9% 40 ML IV SCH (17:46)
[2018-09-23] MEDS: ACETAMINOPHEN IV (For NPO) 1,000 MG in EMPTY BAG 1 BAG IVPB SCH ×2 (17:57→23:57)
[2018-09-23 18:16] LABS: Glucose,Whole Blood 153 mg/dL (75-99)
[2018-09-23] MEDS: INSULIN REGULAR 100 UNIT in SODIUM CHLORIDE 0.9% 100 ML IV SCH (18:18)
[2018-09-23 19:01] LABS: Glucose,Whole Blood 162 mg/dL (75-99)
[2018-09-23 19:04] LABS: Basophils % (A) 0 %; Eosinophils # (A) 0.1 k/uL (0-0.7); Eosinophils % (A) 0 %; HCT 37.7 % (39.0-53.0); HGB 12.2 gm/dL (13.0-17.5); Lymphocytes # (A) 1.1 k/uL (1.0-4.8); Lymphocytes % (A) 5 %; MCH 29.5 pg (25.0-35.0); MCHC 32.2 g/dL (31.0-37.0); MCV 91.5 fL (80.0-100.0); Mean Platelet Volume 7.1; Monocytes # (A) 1.4 k/uL (0-1.0); Monocytes % (A) 6 %; Neutrophils # (A) 18.6 k/uL (1.3-7.7); Neutrophils % (A) 88 %; Platelet Count 262 k/uL (150-450); RBC 4.12 m/uL (4.30-5.90); RDW 13.3 % (11.5-15.5); WBC 21.3 k/uL (3.8-10.6)
[2018-09-23] MEDS: IPRATROPIUM-ALBUTEROL 3 ML NEB INHALATION SCH ×3 (19:10→19:27)
[2018-09-23 19:15] LABS: ABG Base Excess -1.1 mmol/L; ABG HCO3 24 mmol/L (21-25); ABG PCO2 43 mmHg (35-45); ABG PH 7.36 (7.35-7.45); ABG PO2 77 mmHg (83-108); ABG TCO2 26 mmol/L (19-24)
[2018-09-23] MEDS: PROPOFOL 1,000 MG in EMPTY BAG 1 BAG IV SCH ×2 (19:19→23:15)
[2018-09-23 19:59] LABS: Glucose,Whole Blood 179 mg/dL (75-99)
[2018-09-23 20:58] LABS: Glucose,Whole Blood 133 mg/dL (75-99)
[2018-09-23] MEDS ORDERED: MUPIROCIN 2% OINT 22 GM TUBE NASAL SCH (21:00)
[2018-09-23 21:34] LABS: ABG Base Excess 0.4 mmol/L; ABG HCO3 26 mmol/L (21-25); ABG Oxygen Saturation 90.8 % (94-97); ABG PCO2 50 mmHg (35-45); ABG PH 7.33 (7.35-7.45); ABG PO2 62 mmHg (83-108); ABG TCO2 28 mmol/L (19-24)
[2018-09-23 21:57] LABS: Basophils % (A) 0 %; Eosinophils % (A) 0 %; HCT 35.4 % (39.0-53.0); HGB 11.5 gm/dL (13.0-17.5); Lymphocytes # (A) 0.9 k/uL (1.0-4.8); Lymphocytes % (A) 5 %; MCH 29.9 pg (25.0-35.0); MCHC 32.5 g/dL (31.0-37.0); MCV 91.9 fL (80.0-100.0); Mean Platelet Volume 7.1; Monocytes # (A) 0.9 k/uL (0-1.0); Monocytes % (A) 5 %; Neutrophils # (A) 15.1 k/uL (1.3-7.7); Neutrophils % (A) 89 %; Platelet Count 246 k/uL (150-450); RBC 3.85 m/uL (4.30-5.90); RDW 13.3 % (11.5-15.5)
[2018-09-23 22:03] LABS: Glucose,Whole Blood 112 mg/dL (75-99)
[2018-09-23] MEDS: HEPARIN SODIUM,PORCINE 5,000 UNIT/ML 1 ML VIAL SQ SCH ×2 (22:26→23:32)
[2018-09-23] MEDS: ALBUMIN HUMAN 5% 250 ML in EMPTY BAG 1 BAG IVPB PRN ×2 (22:34→23:31)
[2018-09-23 22:44] LABS: ABG Base Excess 0.4 mmol/L; ABG HCO3 25 mmol/L (21-25); ABG PCO2 40 mmHg (35-45); ABG PH 7.41 (7.35-7.45); ABG PO2 72 mmHg (83-108); ABG TCO2 26 mmol/L (19-24)
[2018-09-23 23:00] LABS: Glucose,Whole Blood 125 mg/dL (75-99)
[2018-09-23] MEDS: IPRATROPIUM-ALBUTEROL 3 ML NEB INHALATION PRN (23:33)
[2018-09-24 00:07] LABS: Glucose,Whole Blood 138 mg/dL (75-99)
[2018-09-24 01:01] LABS: Glucose,Whole Blood 153 mg/dL (75-99)
[2018-09-24] MEDS: DILTIAZEM 50 MG in SODIUM CHLORIDE 0.9% 40 ML IV SCH (01:30)
[2018-09-24 02:05] LABS: Glucose,Whole Blood 158 mg/dL (75-99)
[2018-09-24 03:03] LABS: Glucose,Whole Blood 140 mg/dL (75-99)
[2018-09-24] MEDS: IPRATROPIUM-ALBUTEROL 3 ML NEB INHALATION PRN (03:23)
[2018-09-24] MEDS: PROPOFOL 1,000 MG in EMPTY BAG 1 BAG IV SCH (04:09)
[2018-09-24 04:14] LABS: Glucose,Whole Blood 121 mg/dL (75-99)
[2018-09-24 04:24] LABS: Basophils % (A) 0 %; Eosinophils % (A) 0 %; HGB 10.3 gm/dL (13.0-17.5); Lymphocytes # (A) 1.4 k/uL (1.0-4.8); Lymphocytes % (A) 9 %; MCH 29.5 pg (25.0-35.0); MCHC 32.2 g/dL (31.0-37.0); MCV 91.7 fL (80.0-100.0); Mean Platelet Volume 7.3; Monocytes # (A) 0.8 k/uL (0-1.0); Monocytes % (A) 6 %; Neutrophils # (A) 12.3 k/uL (1.3-7.7); Neutrophils % (A) 84 %; Platelet Count 220 k/uL (150-450); RBC 3.49 m/uL (4.30-5.90); RDW 13.6 % (11.5-15.5); WBC 14.6 k/uL (3.8-10.6)
[2018-09-24 04:36] LABS: Ionized Calcium 4.9 mg/dL (4.5-5.3)
[2018-09-24 04:39] LABS: Prothrombin Time 10.9 sec (9.0-12.0)
[2018-09-24 04:44] LABS: ALT 31 U/L (21-72); AST 27 U/L (17-59); Albumin 2.9 g/dL (3.5-5.0); Alkaline Phosphatase 41 U/L (38-126); Anion Gap 9 mmol/L; Blood Urea Nitrogen 26 mg/dL (9-20); Calcium 8.3 mg/dL (8.4-10.2); Carbon Dioxide 25 mmol/L (22-30); Chloride 107 mmol/L (98-107); Glucose 121 mg/dL (74-99); Magnesium 1.8 mg/dL (1.6-2.3); Potassium 3.8 mmol/L (3.5-5.1); Sodium 141 mmol/L (137-145); Total Bilirubin 0.4 mg/dL (0.2-1.3); Total Protein 5.2 g/dL (6.3-8.2)
[2018-09-24] MEDS ORDERED: Potassium Replacement Protocol 1 EACH MISC MISCELLANE PRN (04:52)
[2018-09-24] MEDS ORDERED: Magnesium Replacement Protocol 1 EACH MISC MISCELLANE PRN (04:52)
[2018-09-24 04:58] LABS: Glucose,Whole Blood 118 mg/dL (75-99)
[2018-09-24] MEDS ORDERED: POTASSIUM BICARBONATE/CIT AC 20 MEQ TABLET.EFF NG-TUBE SCH (05:00)
[2018-09-24] MEDS: MAGNESIUM SULFATE-D5W PMX 1 GM in DEXTROSE/WATER 1 100ML.BAG IVPB SCH ×2 (05:44→06:09)
[2018-09-24] MEDS: ACETAMINOPHEN IV (For NPO) 1,000 MG in EMPTY BAG 1 BAG IVPB SCH ×3 (05:52→17:02)
[2018-09-24 06:13] LABS: Glucose,Whole Blood 132 mg/dL (75-99)
--- NOTE | 2018-09-24 06:39 | XR ---
EXAMINATION TYPE: XR chest 1V portable DATE OF EXAM: 09/24/2018 HISTORY: Post Operative Cardiac Surgery. REFERENCE: Previous study dated 09/23/2018. FINDINGS: There has been a midline sternotomy. The patient is ET tube, NG tube and Dufur-Wally catheter remain in place, unchanged in appearance. There are bilateral pleural drains in place. The heart is enlarged. There is minimal bibasilar atelectasis. There are small, bilateral effusions. IMPRESSION: CONTINUING POSTOPERATIVE CHANGE.
[2018-09-24 07:03] LABS: Glucose,Whole Blood 140 mg/dL (75-99)
[2018-09-24] MEDS: DILTIAZEM ORAL 30 MG TAB PO SCH ×4 (07:09→22:11)
[2018-09-24] MEDS: ASPIRIN 325 MG TAB PO SCH (08:03)
[2018-09-24] MEDS: CLOPIDOGREL 75 MG TAB PO SCH (08:04)
[2018-09-24] MEDS: KETOROLAC 30 MG/ML 1 ML VIAL IVP SCH ×3 (08:04→17:03)
[2018-09-24] MEDS: HEPARIN SODIUM,PORCINE 5,000 UNIT/ML 1 ML VIAL SQ SCH ×2 (08:04→16:54)
[2018-09-24] MEDS: ATORVASTATIN 40 MG TAB PO SCH (08:04)
[2018-09-24] MEDS ORDERED: METOPROLOL TARTRATE 25 MG TAB PO STA (08:10)
[2018-09-24 08:34] LABS: Glucose,Whole Blood 121 mg/dL (75-99)
[2018-09-24] MEDS ORDERED: PANTOPRAZOLE 40 MG/10 ML VIAL IVP SCH (09:00)
--- NOTE | 2018-09-24 09:02 | PN ---
PROGRESS NOTE Mr. De Anda underwent a redo aortocoronary bypass surgery performed by Dr. Diomedes Rodríguez yesterday with 5 grafts. The patient seems to be doing fairly stable today. He is still on a ventilator. Weaning efforts have started. However, he is fully awake and responds to commands very well. He is hemodynamically stable and is on a small dose of nitroglycerin and Cardizem is also being weaned off. He is maintaining sinus rhythm. He is having a fairly decent urine output with very limited chest tube drainage. His redo bypass surgery was off pump bypass with 5 grafts, specifically sequential left radial artery graft to the diagonal and LAD, saphenous vein graft to the obtuse marginal, saphenous vein graft to the posterolateral branch of the RCA and a jump from the posterolateral to the PDA. His blood pressure is 118/70, pulse rate is 70 per minute and S1-S2 heard normally. Short systolic murmur noted. Lungs with ventilator assisted breath sounds are good. Rest of physical examination is unremarkable. The patient is awake responding to comments. RECOMMENDATION: From a cardiac standpoint, I have no specific suggestions. Weaning efforts are in progress. We will continue with the supportive care postoperatively and see how he does. He is making good progress considering that this was a rather extensive redo surgery. MMODL / IJN: [id number] /
[2018-09-24] MEDS: IPRATROPIUM-ALBUTEROL 3 ML NEB INHALATION SCH ×4 (09:28→19:45)
[2018-09-24] MEDS ORDERED: fentaNYL (PF) 50 MCG/ML 2 ML AMP IVP ONE (09:30)
[2018-09-24 10:19] LABS: Glucose,Whole Blood 109 mg/dL (75-99)
[2018-09-24 10:35] LABS: ABG Base Excess 2.6 mmol/L; ABG HCO3 27 mmol/L (21-25); ABG Oxygen Saturation 93.4 % (94-97); ABG PCO2 38 mmHg (35-45); ABG PH 7.46 (7.35-7.45); ABG PO2 60 mmHg (83-108); ABG TCO2 28 mmol/L (19-24)
[2018-09-24 11:13] LABS: Glucose,Whole Blood 121 mg/dL (75-99)
[2018-09-24] MEDS: LACTATED RINGERS 1,000 ML IV SCH (11:41)
[2018-09-24 12:04] LABS: Glucose,Whole Blood 131 mg/dL (75-99)
--- NOTE | 2018-09-24 13:02 | P.PN ---
Subjective Progress Note Date: 09/24/18 Principal diagnosis: Coronary artery disease, history of coronary artery bypass grafting, closed vein grafts and patent JOSEPH to the LAD with disease in the LAD distal to the anastomosis. 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 POD #1 redo coronary coronary bypass grafting, off-pump 5 specifically sequential left radial artery graft to diagonal and LAD, reverse saphenous vein graft to obtuse marginal, reverse saphenous vein graft to posterior lateral branch, jump vein graft from posterior lateral graft to PDA. Endovascular right greater saphenous vein harvest. Endo radial harvest of the left radial artery. Intraoperative transesophageal echocardiogram by anesthesia. The patient is currently sitting up in bed in no acute distress. He was successfully extubated at 8:53 this morning. He is currently hemodynamically stable on no inotropes or pressors. Doesn't complain of significant pain at incisional sites making it difficult to take deep breaths, denies shortness of breath. Objective - Vital Signs Vital signs: Vital Signs Temp 99.7 F H 09/24/18 08:00 Pulse 72 09/24/18 09:38 Resp 18 09/24/18 08:30 BP 166/88 09/23/18 06:17 Pulse Ox 94 L 09/24/18 08:30 Intake & Output 09/23/18 09/24/18 09/24/18 18:59 06:59 18:59 Intake Total 327.540 0338.476 111.742 Output Total 2185 698 85 Balance -1853.533 956.476 26.742 Weight 147 kg Intake: IV 330 1408 89 ACETAMINOPHEN IV (For NPO 100 200 ) 1,000 mg In Empty Bag 1 bag @ 400 mls/hr IVPB Q6HR [facility] Rx#:[id number] CO/CI 60 350 30 Lactated Ringers 1,000 ml 100 600 50 @ 50 mls/hr IV .Q20H [facility] Rx#:[id number] Magnesium Sulfate-D5w Pmx 100 1 gm In Dextrose/Water 1 100ml.bag @ 100 mls/hr IVPB Q1H [facility] Rx#: [id number] Pressure Bags 18 108 9 ceFAZolin 3 gm In Sodium 50 50 Chloride 0.9% 50 ml @ 100 mls/hr IVPB Q8H [facility] Rx#: [id number] Intake, IV Titration 1.467 246.476 22.742 Amount Clevidipine Butyrate 25 0.167 7.467 mg In Empty Bag 1 bag @ 1 MG/HR 2 mls/hr IV .Q24H [facility] Rx#:[id number] Diltiazem 50 mg In Sodium 38.667 Chloride 0.9% 40 ml @ 5 MG/HR 5 mls/hr IV .Q10H [facility] Rx#:[id number] Insulin Regular 100 unit 1.3 37.266 22.742 In Sodium Chloride 0.9% 100 ml @ Per Protocol IV .Q0M [facility] Rx#:[id number] Propofol 1,000 mg In 163.076 Empty Bag 1 bag @ Titrate IV .Q0M [facility] Rx#: [id number] Output: Chest Tube Drainage 135 275 40 Chest Tube Mediastinal 45 176 20 Left/Right Pleural chest 90 99 20 tube Urine 1550 423 45 Estimated Blood Loss 500 Other: Voiding Method Indwelling Catheter ABP, PAP, CO, CI - Last Documented Arterial Blood Pressure 119/55 Pulmonary Artery Pressure 40/21 Cardiac Output 7.5 Cardiac Index 2.9 - Constitutional General appearance: Present: cooperative, no acute distress, obese - Respiratory Details: Lungs sounds diminished bilaterally. Respirations even, nonlabored. Currently on 15 L high flow nasal cannula with oxygen saturation 94%. Only able to achieve 250 mL on his incentive spirometry. Weak cough. Mediastinal chest tube to continuous wall suction, 140 mL serosanguineous drainage overnight, 300 mL since surgery. Left/right pleural chest tube to continuous wall suction, 60 mL serosanguineous drainage overnight, 150 mL since surgery. No air leaks present. - Cardiovascular Details: S1, S2 present. Regular rate and rhythm, sinus rhythm on telemetry. Sternum stable. Palpable peripheral pulses bilaterally. Right lower extremity with trace edema. No calf pain or tenderness noted. Antiembolism stockings, SCDs present. Right internal jugular [place]/Cordis, right brachial arterial line present, last CO/CI 7.5/2.9 on no inotropes or pressors. Heart hugger in place with patient demonstrating appropriate use. - Gastrointestinal Gastrointestinal Comment(s): Abdomen soft, nontender, nondistended. Hypoactive bowel sounds present 4 quadrants. Negative flatus. - Genitourinary Genitourinary Comment(s): [place] present draining clear, yellow urine. Output 15-45 mL per hour overnight up to 60 mL/h this morning. - Integumentary Integumentary Comment(s): Skin is warm and dry without evidence of good perfusion. Anterior chest incision well approximated and covered with dry intact dressing. Left radial LUDWIG site well approximated, LUDWIG drain present with minimal drainage. Right lower extremity EVH site well approximated. - Neurologic Neurologic: Present: CNII-XII intact - Musculoskeletal Musculoskeletal: Present: strength equal bilaterally - Psychiatric Psychiatric: Present: A&O x's 3, appropriate affect, intact judgment & insight - Allied health notes Allied health notes reviewed: nursing - Labs CBC & Chem 7: 09/24/18 04:00 09/24/18 04:00 Labs: Abnormal Lab Results - Last 24 Hours (Table) 09/15/18 09/23/18 09/23/18 Range/Units 09:00 08:48 12:26 WBC (3.8-10.6) k/uL RBC (4.30-5.90) m/uL Hgb (13.0-17.5) gm/dL Hct (39.0-53.0) % Neutrophils # (1.3-7.7) k/uL Lymphocytes # (1.0-4.8) k/uL Monocytes # (0-1.0) k/uL ABG pH (7.35-7.45) ABG pCO2 (35-45) mmHg ABG pO2 172 H 113 H (83-108) mmHg ABG HCO3 26 H (21-25) mmol/L ABG Total CO2 27 H 26 H (19-24) mmol/L ABG O2 Saturation 99.5 H 98.5 H (94-97) % ABG Glucose 163 H 174 H (75-99) mg/dL ABG Lactic Acid 2.4 H* 2.9 H* (0.5-1.6) mmol/L Hemoglobin 12.9 L 12.4 L (13.0-17.5) gm/dL Chloride (98-107) mmol/L BUN (9-20) mg/dL Creatinine (0.66-1.25) mg/dL Glucose (74-99) mg/dL POC Glucose (mg/dL) (75-99) mg/dL Calcium (8.4-10.2) mg/dL Total Protein (6.3-8.2) g/dL Albumin (3.5-5.0) g/dL Arterial Blood Glucose 163 H 174 H (75-99) mg/dL Crossmatch See Detail 09/23/18 09/23/18 09/23/18 Range/Units 12:51 13:30 13:59 WBC (3.8-10.6) k/uL RBC (4.30-5.90) m/uL Hgb (13.0-17.5) gm/dL Hct (39.0-53.0) % Neutrophils # (1.3-7.7) k/uL Lymphocytes # (1.0-4.8) k/uL Monocytes # (0-1.0) k/uL ABG pH (7.35-7.45) ABG pCO2 (35-45) mmHg ABG pO2 257 H 308 H (83-108) mmHg ABG HCO3 (21-25) mmol/L ABG Total CO2 26 H 26 H 26 H (19-24) mmol/L ABG O2 Saturation 97.4 H 99.8 H 99.7 H (94-97) % ABG Glucose 166 H 151 H 148 H (75-99) mg/dL ABG Lactic Acid 2.6 H* 3.1 H* 3.4 H* (0.5-1.6) mmol/L Hemoglobin 12.0 L 11.6 L 11.6 L (13.0-17.5) gm/dL Chloride (98-107) mmol/L BUN (9-20) mg/dL Creatinine (0.66-1.25) mg/dL Glucose (74-99) mg/dL POC Glucose (mg/dL) (75-99) mg/dL Calcium (8.4-10.2) mg/dL Total Protein (6.3-8.2) g/dL Albumin (3.5-5.0) g/dL Arterial Blood Glucose 166 H 151 H 148 H (75-99) mg/dL Crossmatch 09/23/18 09/23/18 09/23/18 Range/Units 14:15 14:15 14:59 WBC 20.1 H (3.8-10.6) k/uL RBC 3.95 L (4.30-5.90) m/uL Hgb 11.8 L (13.0-17.5) gm/dL Hct 36.2 L (39.0-53.0) % Neutrophils # 17.8 H (1.3-7.7) k/uL Lymphocytes # (1.0-4.8) k/uL Monocytes # (0-1.0) k/uL ABG pH (7.35-7.45) ABG pCO2 (35-45) mmHg ABG pO2 (83-108) mmHg ABG HCO3 (21-25) mmol/L ABG Total CO2 26 H (19-24) mmol/L ABG O2 Saturation 98.0 H (94-97) % ABG Glucose 160 H (75-99) mg/dL ABG Lactic Acid 3.3 H* (0.5-1.6) mmol/L Hemoglobin 11.4 L (13.0-17.5) gm/dL Chloride 109 H (98-107) mmol/L BUN (9-20) mg/dL Creatinine 0.62 L (0.66-1.25) mg/dL Glucose 159 H (74-99) mg/dL POC Glucose (mg/dL) (75-99) mg/dL Calcium 8.2 L (8.4-10.2) mg/dL Total Protein 5.5 L (6.3-8.2) g/dL Albumin 3.0 L (3.5-5.0) g/dL Arterial Blood Glucose 160 H (75-99) mg/dL Crossmatch 09/23/18 09/23/18 09/23/18 Range/Units 16:19 16:55 17:11 WBC (3.8-10.6) k/uL RBC (4.30-5.90) m/uL Hgb (13.0-17.5) gm/dL Hct (39.0-53.0) % Neutrophils # (1.3-7.7) k/uL Lymphocytes # (1.0-4.8) k/uL Monocytes # (0-1.0) k/uL ABG pH 7.26 L (7.35-7.45) ABG pCO2 58 H (35-45) mmHg ABG pO2 77 L (83-108) mmHg ABG HCO3 26 H (21-25) mmol/L ABG Total CO2 28 H (19-24) mmol/L ABG O2 Saturation 93.8 L (94-97) % ABG Glucose (75-99) mg/dL ABG Lactic Acid (0.5-1.6) mmol/L Hemoglobin (13.0-17.5) gm/dL Chloride (98-107) mmol/L BUN (9-20) mg/dL Creatinine (0.66-1.25) mg/dL Glucose (74-99) mg/dL POC Glucose (mg/dL) 173 H 157 H (75-99) mg/dL Calcium (8.4-10.2) mg/dL Total Protein (6.3-8.2) g/dL Albumin (3.5-5.0) g/dL Arterial Blood Glucose (75-99) mg/dL Crossmatch 09/23/18 09/23/18 09/23/18 Range/Units 18:05 18:50 19:00 WBC 21.3 H (3.8-10.6) k/uL RBC 4.12 L (4.30-5.90) m/uL Hgb 12.2 L (13.0-17.5) gm/dL Hct 37.7 L (39.0-53.0) % Neutrophils # 18.6 H (1.3-7.7) k/uL Lymphocytes # (1.0-4.8) k/uL Monocytes # 1.4 H (0-1.0) k/uL ABG pH (7.35-7.45) ABG pCO2 (35-45) mmHg ABG pO2 (83-108) mmHg ABG HCO3 (21-25) mmol/L ABG Total CO2 (19-24) mmol/L ABG O2 Saturation (94-97) % ABG Glucose (75-99) mg/dL ABG Lactic Acid (0.5-1.6) mmol/L Hemoglobin (13.0-17.5) gm/dL Chloride (98-107) mmol/L BUN (9-20) mg/dL Creatinine (0.66-1.25) mg/dL Glucose (74-99) mg/dL POC Glucose (mg/dL) 153 H 162 H (75-99) mg/dL Calcium (8.4-10.2) mg/dL Total Protein (6.3-8.2) g/dL Albumin (3.5-5.0) g/dL Arterial Blood Glucose (75-99) mg/dL Crossmatch 09/23/18 09/23/18 09/23/18 Range/Units 19:11 19:48 20:46 WBC (3.8-10.6) k/uL RBC (4.30-5.90) m/uL Hgb (13.0-17.5) gm/dL Hct (39.0-53.0) % Neutrophils # (1.3-7.7) k/uL Lymphocytes # (1.0-4.8) k/uL Monocytes # (0-1.0) k/uL ABG pH (7.35-7.45) ABG pCO2 (35-45) mmHg ABG pO2 77 L (83-108) mmHg ABG HCO3 (21-25) mmol/L ABG Total CO2 26 H (19-24) mmol/L ABG O2 Saturation (94-97) % ABG Glucose (75-99) mg/dL ABG Lactic Acid (0.5-1.6) mmol/L Hemoglobin (13.0-17.5) gm/dL Chloride (98-107) mmol/L BUN (9-20) mg/dL Creatinine (0.66-1.25) mg/dL Glucose (74-99) mg/dL POC Glucose (mg/dL) 179 H 133 H (75-99) mg/dL Calcium (8.4-10.2) mg/dL Total Protein (6.3-8.2) g/dL Albumin (3.5-5.0) g/dL Arterial Blood Glucose (75-99) mg/dL Crossmatch 09/23/18 09/23/18 09/23/18 Range/Units 21:20 21:32 21:52 WBC 17.0 H (3.8-10.6) k/uL RBC 3.85 L (4.30-5.90) m/uL Hgb 11.5 L (13.0-17.5) gm/dL Hct 35.4 L (39.0-53.0) % Neutrophils # 15.1 H (1.3-7.7) k/uL Lymphocytes # 0.9 L (1.0-4.8) k/uL Monocytes # (0-1.0) k/uL ABG pH 7.33 L (7.35-7.45) ABG pCO2 50 H (35-45) mmHg ABG pO2 62 L (83-108) mmHg ABG HCO3 26 H (21-25) mmol/L ABG Total CO2 28 H (19-24) mmol/L ABG O2 Saturation 90.8 L (94-97) % ABG Glucose (75-99) mg/dL ABG Lactic Acid (0.5-1.6) mmol/L Hemoglobin (13.0-17.5) gm/dL Chloride (98-107) mmol/L BUN (9-20) mg/dL Creatinine (0.66-1.25) mg/dL Glucose (74-99) mg/dL POC Glucose (mg/dL) 112 H (75-99) mg/dL Calcium (8.4-10.2) mg/dL Total Protein (6.3-8.2) g/dL Albumin (3.5-5.0) g/dL Arterial Blood Glucose (75-99) mg/dL Crossmatch 09/23/18 09/23/18 09/23/18 Range/Units 22:41 22:49 23:56 WBC (3.8-10.6) k/uL RBC (4.30-5.90) m/uL Hgb (13.0-17.5) gm/dL Hct (39.0-53.0) % Neutrophils # (1.3-7.7) k/uL Lymphocytes # (1.0-4.8) k/uL Monocytes # (0-1.0) k/uL ABG pH (7.35-7.45) ABG pCO2 (35-45) mmHg ABG pO2 72 L (83-108) mmHg ABG HCO3 (21-25) mmol/L ABG Total CO2 26 H (19-24) mmol/L ABG O2 Saturation (94-97) % ABG Glucose (75-99) mg/dL ABG Lactic Acid (0.5-1.6) mmol/L Hemoglobin (13.0-17.5) gm/dL Chloride (98-107) mmol/L BUN (9-20) mg/dL Creatinine (0.66-1.25) mg/dL Glucose (74-99) mg/dL POC Glucose (mg/dL) 125 H 138 H (75-99) mg/dL Calcium (8.4-10.2) mg/dL Total Protein (6.3-8.2) g/dL Albumin (3.5-5.0) g/dL Arterial Blood Glucose (75-99) mg/dL Crossmatch 09/24/18 09/24/18 09/24/18 Range/Units 00:49 01:54 02:52 WBC (3.8-10.6) k/uL RBC (4.30-5.90) m/uL Hgb (13.0-17.5) gm/dL Hct (39.0-53.0) % Neutrophils # (1.3-7.7) k/uL Lymphocytes # (1.0-4.8) k/uL Monocytes # (0-1.0) k/uL ABG pH (7.35-7.45) ABG pCO2 (35-45) mmHg ABG pO2 (83-108) mmHg ABG HCO3 (21-25) mmol/L ABG Total CO2 (19-24) mmol/L ABG O2 Saturation (94-97) % ABG Glucose (75-99) mg/dL ABG Lactic Acid (0.5-1.6) mmol/L Hemoglobin (13.0-17.5) gm/dL Chloride (98-107) mmol/L BUN (9-20) mg/dL Creatinine (0.66-1.25) mg/dL Glucose (74-99) mg/dL POC Glucose (mg/dL) 153 H 158 H 140 H (75-99) mg/dL Calcium (8.4-10.2) mg/dL Total Protein (6.3-8.2) g/dL Albumin (3.5-5.0) g/dL Arterial Blood Glucose (75-99) mg/dL Crossmatch 09/24/18 09/24/18 09/24/18 Range/Units 04:00 04:00 04:03 WBC 14.6 H (3.8-10.6) k/uL RBC 3.49 L (4.30-5.90) m/uL Hgb 10.3 L (13.0-17.5) gm/dL Hct 32.0 L (39.0-53.0) % Neutrophils # 12.3 H (1.3-7.7) k/uL Lymphocytes # (1.0-4.8) k/uL Monocytes # (0-1.0) k/uL ABG pH (7.35-7.45) ABG pCO2 (35-45) mmHg ABG pO2 (83-108) mmHg ABG HCO3 (21-25) mmol/L ABG Total CO2 (19-24) mmol/L ABG O2 Saturation (94-97) % ABG Glucose (75-99) mg/dL ABG Lactic Acid (0.5-1.6) mmol/L Hemoglobin (13.0-17.5) gm/dL Chloride (98-107) mmol/L BUN 26 H (9-20) mg/dL Creatinine (0.66-1.25) mg/dL Glucose 121 H (74-99) mg/dL POC Glucose (mg/dL) 121 H (75-99) mg/dL Calcium 8.3 L (8.4-10.2) mg/dL Total Protein 5.2 L (6.3-8.2) g/dL Albumin 2.9 L (3.5-5.0) g/dL Arterial Blood Glucose (75-99) mg/dL Crossmatch 09/24/18 09/24/18 09/24/18 Range/Units 04:47 06:01 06:52 WBC (3.8-10.6) k/uL RBC (4.30-5.90) m/uL Hgb (13.0-17.5) gm/dL Hct (39.0-53.0) % Neutrophils # (1.3-7.7) k/uL Lymphocytes # (1.0-4.8) k/uL Monocytes # (0-1.0) k/uL ABG pH (7.35-7.45) ABG pCO2 (35-45) mmHg ABG pO2 (83-108) mmHg ABG HCO3 (21-25) mmol/L ABG Total CO2 (19-24) mmol/L ABG O2 Saturation (94-97) % ABG Glucose (75-99) mg/dL ABG Lactic Acid (0.5-1.6) mmol/L Hemoglobin (13.0-17.5) gm/dL Chloride (98-107) mmol/L BUN (9-20) mg/dL Creatinine (0.66-1.25) mg/dL Glucose (74-99) mg/dL POC Glucose (mg/dL) 118 H 132 H 140 H (75-99) mg/dL Calcium (8.4-10.2) mg/dL Total Protein (6.3-8.2) g/dL Albumin (3.5-5.0) g/dL Arterial Blood Glucose (75-99) mg/dL Crossmatch 09/24/18 09/24/18 09/24/18 Range/Units 08:23 08:27 10:07 WBC (3.8-10.6) k/uL RBC (4.30-5.90) m/uL Hgb (13.0-17.5) gm/dL Hct (39.0-53.0) % Neutrophils # (1.3-7.7) k/uL Lymphocytes # (1.0-4.8) k/uL Monocytes # (0-1.0) k/uL ABG pH 7.46 H (7.35-7.45) ABG pCO2 (35-45) mmHg ABG pO2 60 L (83-108) mmHg ABG HCO3 27 H (21-25) mmol/L ABG Total CO2 28 H (19-24) mmol/L ABG O2 Saturation 93.4 L (94-97) % ABG Glucose (75-99) mg/dL ABG Lactic Acid (0.5-1.6) mmol/L Hemoglobin (13.0-17.5) gm/dL Chloride (98-107) mmol/L BUN (9-20) mg/dL Creatinine (0.66-1.25) mg/dL Glucose (74-99) mg/dL POC Glucose (mg/dL) 121 H 109 H (75-99) mg/dL Calcium (8.4-10.2) mg/dL Total Protein (6.3-8.2) g/dL Albumin (3.5-5.0) g/dL Arterial Blood Glucose (75-99) mg/dL Crossmatch 09/24/18 Range/Units 11:01 WBC (3.8-10.6) k/uL RBC (4.30-5.90) m/uL Hgb (13.0-17.5) gm/dL Hct (39.0-53.0) % Neutrophils # (1.3-7.7) k/uL Lymphocytes # (1.0-4.8) k/uL Monocytes # (0-1.0) k/uL ABG pH (7.35-7.45) ABG pCO2 (35-45) mmHg ABG pO2 (83-108) mmHg ABG HCO3 (21-25) mmol/L ABG Total CO2 (19-24) mmol/L ABG O2 Saturation (94-97) % ABG Glucose (75-99) mg/dL ABG Lactic Acid (0.5-1.6) mmol/L Hemoglobin (13.0-17.5) gm/dL Chloride (98-107) mmol/L BUN (9-20) mg/dL Creatinine (0.66-1.25) mg/dL Glucose (74-99) mg/dL POC Glucose (mg/dL) 121 H (75-99) mg/dL Calcium (8.4-10.2) mg/dL Total Protein (6.3-8.2) g/dL Albumin (3.5-5.0) g/dL Arterial Blood Glucose (75-99) mg/dL Crossmatch - Imaging and Cardiology Chest x-ray: report reviewed, image reviewed Assessment and Plan (1) Hypertension Current Visit: Yes Status: Chronic Code(s): I10 - ESSENTIAL (PRIMARY) HYPERTENSION SNOMED Code(s): 32602116 (2) Hyperlipidemia Current Visit: Yes Status: Chronic Code(s): E78.5 - HYPERLIPIDEMIA, UNSPECIFIED SNOMED Code(s): 34394253 (3) Family history of early CAD Current Visit: Yes Status: Chronic Code(s): Z82.49 - FAMILY HX OF ISCHEM HEART DIS AND OTH DIS OF THE CIRC SYS SNOMED Code(s): 321968610 (4) History of coronary artery bypass graft Current Visit: Yes Status: Chronic Code(s): Z95.1 - PRESENCE OF AORTOCORONARY BYPASS GRAFT SNOMED Code(s): 750702624 (5) CAD (coronary artery disease) Current Visit: Yes Status: Chronic Code(s): I25.10 - ATHSCL HEART DISEASE OF SAULT [place] CORONARY ARTERY W/O ANG PCTRS SNOMED Code(s): 48281110 (6) Diabetes mellitus Current Visit: Yes Status: Chronic Code(s): E11.9 - TYPE 2 DIABETES MELLITUS WITHOUT COMPLICATIONS SNOMED Code(s): 12959542 (7) Obesity Current Visit: Yes Status: Chronic Code(s): E66.9 - OBESITY, UNSPECIFIED SNOMED Code(s): 511068710 (8) Tobacco dependence in remission Current Visit: No Status: Resolved Code(s): F17.201 - NICOTINE DEPENDENCE, UNSPECIFIED, IN REMISSION SNOMED Code(s): 019155218 (9) Obstructive sleep apnea Current Visit: Yes Status: Chronic Code(s): G47.33 - OBSTRUCTIVE SLEEP APNEA (ADULT) (PEDIATRIC) SNOMED Code(s): 58739270 (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 Continue aspirin, plavix, beta-david therapy. Will increase beta-david therapy as tolerated. 2. Wean O2 as tolerated. Encourage incentive spirometry use 10 times every hour while awake. Patient needs aggressive pulmonary hygiene. 3. Increase activity as tolerated. Patient should be up in chair at the very minimum for every meal. Ambulate in hallway. PT/OT/cardiac rehab following. 4. Will monitor daily labs and x-rays. Electrolyte replacement per protocol. 5. Mediastinal chest tube discontinued without incident. Right and left pleural chest tube to continuous wall suction for 24 hours. 6. Oral Cardizem initiated for radial artery spasm. May discontinue IV Cardizem. Discontinue IV nitro. 7. Discontinue [place]. Connect Cordis to continue CVP monitoring. 8. Insulin management per primary care service. 9. Bronchodilators per pulmonology. 10. Pain control with current medication regimen. Toradol added. 11. More recommendations to follow. Time with Patient: Greater than 30
--- NOTE | 2018-09-24 13:10 | P.CNPUL ---
History of Present Illness Consult date: 09/24/18 Requesting physician: Diomedes Rodríguez Reason for consult: other (Status post CABG, on mechanical ventilation.) Chief complaint: Exertional dyspnea History of present illness: This is a 68-year-old white male presented recently to Dr. Bagley for exertional dyspnea, patient had previous stress test in 2017, showed a small area of inferior ischemia. Recent repeat stress test, showed large area of reversible ischemia, patient underwent cardiac catheterization, and he was found to have patent JOSEPH to LAD, tight stenosis in the LAD just beyond the anastomosis, the [place] coronary shows complete occlusion of the LAD prior to the JOSEPH anastomosis there is a vein graft to diagonal that is still patent, however there was no flow in the diagonal beyond the anastomosis. Retrograde flow in the very diseased diagonal coronary artery up into a small segment of the LAD that is distal to the complete occlusion and proximal to the L MEHDI anastomosis. The [place] right coronary artery was completely occluded , the vein graft to the right coronary artery system and there were 2 both completely occluded. Echocardiogram showed good ejection fraction of 50%. Patient was referred to Dr. Rodríguez, and he recommended coronary bypass grafting. On 08/24/2018, redo CABG was done, postoperatively the patient was on mechanical ventilation, and this consult was initiated. I was initially called about his initial ABG, and made some ventilator setting changes, however later on all the ventilator orders were given by Dr. Rodríguez, hence I felt it would be best that Dr. Rodríguez manages the patient ventilator settings overnight since he is taking over ventilator management. Patient remained on mechanical ventilation overnight, apparently he was placed on very high tidal volumes through the night, and around the 9:00 this morning, the patient was eventually extubated. When I saw the patient this morning, he was on nasal cannula, and in no distress. Chest x- ray this morning was reviewed, there was mostly postoperative changes, and minimal bibasilar atelectasis with small bilateral effusions. Patient was not complaining of any shortness of breath. And his O2 saturation was 94% on 3 L nasal cannula patient denied any chest pain, no shortness of breath, no wheezing , no headaches no blurred vision no dizziness. No nausea no vomiting no abdominal pain, no melena, no hematemesis. No dysuria and no frequency no urgency. Review of Systems 14 point review of systems were obtained, please refer to pertinent positives in HPI. Otherwise remaining systems are negative. Past Medical History Past Medical History: Asthma, Coronary Artery Disease (CAD), Diabetes Mellitus, Hyperlipidemia, Hypertension, Sleep Apnea/CPAP/BIPAP Additional Past Medical History / Comment(s): unable to use cpap, asthma as a child, currently has cold & congestion, fatty liver History of Any Multi-Drug Resistant Organisms: None Reported Past Surgical History: Appendectomy, Coronary Bypass/CABG, Heart Catheterization With Stent, Orthopedic Surgery Additional Past Surgical History / Comment(s): CABG X5, STENTS X2, SPLEENECTOMY AT AGE 7, LYSIS OF ADHESIONS AGE 8, Past Anesthesia/Blood Transfusion Reactions: No Reported Reaction Date of Last Stent Placement:: 2012 Smoking Status: Former smoker - Past Family History Brother(s) Family Medical History: Coronary Artery Disease (CAD), Myocardial Infarction (CA ) Additional Family Medical History / Comment(s): CABG Medications and Allergies Home Medications Medication Instructions Recorded Confirmed Type Aspirin 81 mg PO DAILY 08/15/18 09/23/18 History Metoprolol Tartrate [Lopressor] 25 mg PO BID 08/15/18 09/23/18 History Pravastatin Sodium [Pravachol] 40 mg PO HS 08/15/18 09/23/18 History Cetirizine HCl [Zyrtec] 10 mg PO DAILY PRN 09/15/18 09/23/18 History Cholecalciferol [Vitamin D3] 1,000 unit PO DAILY 09/15/18 09/23/18 History Losartan Potassium [Cozaar] 100 mg PO DAILY 09/15/18 09/23/18 History Magnesium 400 mg PO DAILY 09/15/18 09/23/18 History Multivitamin [Men's Multi-Vitamin] 1 tab PO DAILY 09/15/18 09/23/18 History Mv-Mn/C/Glutamin/Lysin/[id number] 1 tab PO TID PRN 09/15/18 09/23/18 History [Airborne Gummies] Resveratrol 200 mg PO DAILY 09/15/18 09/23/18 History amLODIPine [Norvasc] 10 mg PO DAILY 09/15/18 09/23/18 History metFORMIN HCL [Glucophage] 1,000 mg PO BID 09/15/18 09/23/18 History Lisinopril 40 mg PO DAILY 09/23/18 09/23/18 History Allergies Allergy/AdvReac Type Severity Reaction Status Date / Time No Known Allergies Allergy Verified 09/23/18 18:41 Physical Exam Vitals: Vital Signs Temp Pulse Resp Pulse Ox 09/24/18 12:13 86 09/24/18 11:59 89 09/24/18 11:00 80 30 H 94 L 09/24/18 10:30 73 19 96 09/24/18 10:00 75 30 H 91 L 09/24/18 09:38 72 09/24/18 09:30 66 12 94 L 09/24/18 09:28 66 09/24/18 09:00 74 27 H 90 L 09/24/18 08:30 70 18 94 L 09/24/18 08:00 99.7 F H 74 14 92 L 09/24/18 07:30 75 23 96 09/24/18 07:00 75 26 H 94 L 09/24/18 06:30 85 52 H 86 L 09/24/18 06:00 73 25 H 95 09/24/18 05:30 72 22 97 09/24/18 05:00 72 21 97 09/24/18 04:30 75 25 H 94 L 09/24/18 04:00 99.3 F 65 15 99 09/24/18 03:35 65 09/24/18 03:30 65 14 99 09/24/18 03:23 65 09/24/18 03:00 66 22 98 09/24/18 02:30 68 23 98 09/24/18 02:00 70 20 98 09/24/18 01:30 69 20 95 09/24/18 01:00 72 20 98 09/24/18 00:30 73 23 98 09/24/18 00:06 76 28 H 98 09/24/18 00:00 99.1 F 87 24 96 09/23/18 23:33 71 09/23/18 23:30 70 19 99 09/23/18 23:00 72 19 97 09/23/18 22:30 75 32 H 93 L 09/23/18 22:00 75 23 92 L 09/23/18 21:30 81 15 92 L 09/23/18 21:00 68 24 99 18 20:30 67 21 98 18 20:00 97.7 F 66 21 99 09/23/18 19:32 70 09/23/18 19:30 68 16 97 09/23/18 19:25 68 09/23/18 19:00 75 20 96 09/23/18 18:30 80 8 L 92 L 09/23/18 18:00 79 27 H 91 L 09/23/18 17:30 71 21 96 09/23/18 17:00 68 21 95 09/23/18 16:30 68 21 95 09/23/18 16:10 18 Intake and Output 09/23/18 09/24/18 09/24/18 22:59 06:59 14:59 Intake Total 551.554 4749.068 477.742 Output Total 2483 400 418 Balance -1623.125 724.068 59.742 Intake: IV 773 963 455 ACETAMINOPHEN IV (For NPO 100 200 100 ) 1,000 mg In Empty Bag 1 bag @ 400 mls/hr IVPB Q6HR [facility] Rx#:[id number] CO/CI 210 200 50 Lactated Ringers 1,000 ml 350 350 210 @ 20 mls/hr IV .Q24H [facility] Rx#:[id number] Magnesium Sulfate-D5w Pmx 100 1 gm In Dextrose/Water 1 100ml.bag @ 100 mls/hr IVPB Q1H [facility] Rx#: [id number] Pressure Bags 63 63 45 ceFAZolin 3 gm In Sodium 50 50 50 Chloride 0.9% 50 ml @ 100 mls/hr IVPB Q8H [facility] Rx#: [id number] Intake, IV Titration 86.875 161.068 22.742 Amount Clevidipine Butyrate 25 7.634 mg In Empty Bag 1 bag @ 1 MG/HR 2 mls/hr IV .Q24H [facility] Rx#:[id number] Diltiazem 50 mg In Sodium 38.667 Chloride 0.9% 40 ml @ 5 MG/HR 5 mls/hr IV .Q10H [facility] Rx#:[id number] Insulin Regular 100 unit 11.5 27.066 22.742 In Sodium Chloride 0.9% 100 ml @ Per Protocol IV .Q0M [facility] Rx#:[id number] Propofol 1,000 mg In 67.741 95.335 Empty Bag 1 bag @ Titrate IV .Q0M [facility] Rx#: [id number] Output: Chest Tube Drainage 260 150 158 Chest Tube Mediastinal 107 114 120 Left/Right Pleural chest 153 36 38 tube Urine 1723 250 260 Estimated Blood Loss 500 Other: Voiding Method Indwelling Catheter Indwelling Catheter Indwelling Catheter Weight 147 kg ABP, PAP, CO, CI - Last 8 Hours Arterial Blood Pressure 137/62 Arterial Blood Pressure 157/75 Arterial Blood Pressure 138/66 Arterial Blood Pressure 143/67 Arterial Blood Pressure 119/55 Arterial Blood Pressure 120/57 Arterial Blood Pressure 121/57 Arterial Blood Pressure 118/55 Arterial Blood Pressure 119/66 Arterial Blood Pressure 115/56 Arterial Blood Pressure 127/61 Arterial Blood Pressure 112/56 Pulmonary Artery Pressure 48/21 Pulmonary Artery Pressure 40/21 Pulmonary Artery Pressure 40/22 Pulmonary Artery Pressure 40/20 Pulmonary Artery Pressure 42/21 Pulmonary Artery Pressure 61/33 Pulmonary Artery Pressure 37/17 Pulmonary Artery Pressure 41/21 Pulmonary Artery Pressure 33/19 Cardiac Output 7.5 Cardiac Output 7.5 Cardiac Output 7.5 Cardiac Output 7.5 Cardiac Output 7.5 Cardiac Output 7.5 Cardiac Output 7.5 Cardiac Output 8.1 Cardiac Output 8.1 Cardiac Output 8.1 Cardiac Output 8.1 Cardiac Output 7.7 Cardiac Output 7.7 Cardiac Index 2.9 Cardiac Index 3.1 Cardiac Index 3.1 Cardiac Index 3.0 Physical Exam: Revealed a 68-year-old white male in no distress. Head: Atraumatic, normocephalic. HEENT:[Neck is supple.] [No neck masses.] [No thyromegaly.] [No JVD.] Chest: [Diminished breath sounds at the bases, left sided chest tube is noted.] Cardiac Exam: [Normal S1 and S2, no S3 gallop, positive pericardial rub. No murmur. Abdomen: [Obese, Soft, nontender, no megaly, no rebound, no guarding, normal bowel sounds.] Extremities: Lower extremities are both are wrapped with Dereck wrapping. Neurological Exam: [No gross focal neurologic deficit.] Psychiatric: Normal mood, affect and mental status examination. Results - Laboratory Findings CBC and BMP: 09/24/18 04:00 09/24/18 04:00 ABG ABG pH 7.46 (7.35-7.45) H 09/24/18 08:27 ABG pCO2 38 mmHg (35-45) 09/24/18 08:27 ABG pO2 60 mmHg (83-108) L 09/24/18 08:27 ABG O2 Saturation 93.4 % (94-97) L 09/24/18 08:27 PT/INR, D-dimer PT 10.9 sec (9.0-12.0) 09/24/18 04:00 INR 1.0 (<1.2) 09/24/18 04:00 Abnormal lab findings: Abnormal Labs 09/15/18 09/23/18 09/23/18 09:00 06:22 08:48 WBC RBC Hgb Hct Neutrophils # Lymphocytes # Monocytes # ABG pH ABG pCO2 ABG pO2 172 H ABG HCO3 26 H ABG Total CO2 27 H ABG O2 Saturation 99.5 H ABG Glucose 163 H ABG Lactic Acid 2.4 H* Hemoglobin 12.9 L Chloride BUN Creatinine Glucose POC Glucose (mg/dL) 119 H Calcium Total Protein Albumin Arterial Blood Glucose 163 H Crossmatch See Detail 09/23/18 09/23/18 09/23/18 12:26 12:51 13:30 WBC RBC Hgb Hct Neutrophils # Lymphocytes # Monocytes # ABG pH ABG pCO2 ABG pO2 113 H 257 H ABG HCO3 ABG Total CO2 26 H 26 H 26 H ABG O2 Saturation 98.5 H 97.4 H 99.8 H ABG Glucose 174 H 166 H 151 H ABG Lactic Acid 2.9 H* 2.6 H* 3.1 H* Hemoglobin 12.4 L 12.0 L 11.6 L Chloride BUN Creatinine Glucose POC Glucose (mg/dL) Calcium Total Protein Albumin Arterial Blood Glucose 174 H 166 H 151 H Crossmatch 09/23/18 09/23/18 09/23/18 13:59 14:15 14:15 WBC 20.1 H RBC 3.95 L Hgb 11.8 L Hct 36.2 L Neutrophils # 17.8 H Lymphocytes # Monocytes # ABG pH ABG pCO2 ABG pO2 308 H ABG HCO3 ABG Total CO2 26 H ABG O2 Saturation 99.7 H ABG Glucose 148 H ABG Lactic Acid 3.4 H* Hemoglobin 11.6 L Chloride 109 H BUN Creatinine 0.62 L Glucose 159 H POC Glucose (mg/dL) Calcium 8.2 L Total Protein 5.5 L Albumin 3.0 L Arterial Blood Glucose 148 H Crossmatch 09/23/18 09/23/18 09/23/18 14:59 16:19 16:55 WBC RBC Hgb Hct Neutrophils # Lymphocytes # Monocytes # ABG pH 7.26 L ABG pCO2 58 H ABG pO2 77 L ABG HCO3 26 H ABG Total CO2 26 H 28 H ABG O2 Saturation 98.0 H 93.8 L ABG Glucose 160 H ABG Lactic Acid 3.3 H* Hemoglobin 11.4 L Chloride BUN Creatinine Glucose POC Glucose (mg/dL) 173 H Calcium Total Protein Albumin Arterial Blood Glucose 160 H Crossmatch 09/23/18 09/23/18 09/23/18 17:11 18:05 18:50 WBC RBC Hgb Hct Neutrophils # Lymphocytes # Monocytes # ABG pH ABG pCO2 ABG pO2 ABG HCO3 ABG Total CO2 ABG O2 Saturation ABG Glucose ABG Lactic Acid Hemoglobin Chloride BUN Creatinine Glucose POC Glucose (mg/dL) 157 H 153 H 162 H Calcium Total Protein Albumin Arterial Blood Glucose Crossmatch 09/23/18 09/23/18 09/23/18 19:00 19:11 19:48 WBC 21.3 H RBC 4.12 L Hgb 12.2 L Hct 37.7 L Neutrophils # 18.6 H Lymphocytes # Monocytes # 1.4 H ABG pH ABG pCO2 ABG pO2 77 L ABG HCO3 ABG Total CO2 26 H ABG O2 Saturation ABG Glucose ABG Lactic Acid Hemoglobin Chloride BUN Creatinine Glucose POC Glucose (mg/dL) 179 H Calcium Total Protein Albumin Arterial Blood Glucose Crossmatch 09/23/18 09/23/18 09/23/18 20:46 21:20 21:32 WBC 17.0 H RBC 3.85 L Hgb 11.5 L Hct 35.4 L Neutrophils # 15.1 H Lymphocytes # 0.9 L Monocytes # ABG pH 7.33 L ABG pCO2 50 H ABG pO2 62 L ABG HCO3 26 H ABG Total CO2 28 H ABG O2 Saturation 90.8 L ABG Glucose ABG Lactic Acid Hemoglobin Chloride BUN Creatinine Glucose POC Glucose (mg/dL) 133 H Calcium Total Protein Albumin Arterial Blood Glucose Crossmatch 09/23/18 09/23/18 09/23/18 21:52 22:41 22:49 WBC RBC Hgb Hct Neutrophils # Lymphocytes # Monocytes # ABG pH ABG pCO2 ABG pO2 72 L ABG HCO3 ABG Total CO2 26 H ABG O2 Saturation ABG Glucose ABG Lactic Acid Hemoglobin Chloride BUN Creatinine Glucose POC Glucose (mg/dL) 112 H 125 H Calcium Total Protein Albumin Arterial Blood Glucose Crossmatch 09/23/18 09/24/18 09/24/18 23:56 00:49 01:54 WBC RBC Hgb Hct Neutrophils # Lymphocytes # Monocytes # ABG pH ABG pCO2 ABG pO2 ABG HCO3 ABG Total CO2 ABG O2 Saturation ABG Glucose ABG Lactic Acid Hemoglobin Chloride BUN Creatinine Glucose POC Glucose (mg/dL) 138 H 153 H 158 H Calcium Total Protein Albumin Arterial Blood Glucose Crossmatch 09/24/18 09/24/18 09/24/18 02:52 04:00 04:00 WBC 14.6 H RBC 3.49 L Hgb 10.3 L Hct 32.0 L Neutrophils # 12.3 H Lymphocytes # Monocytes # ABG pH ABG pCO2 ABG pO2 ABG HCO3 ABG Total CO2 ABG O2 Saturation ABG Glucose ABG Lactic Acid Hemoglobin Chloride BUN 26 H Creatinine Glucose 121 H POC Glucose (mg/dL) 140 H Calcium 8.3 L Total Protein 5.2 L Albumin 2.9 L Arterial Blood Glucose Crossmatch 09/24/18 09/24/18 09/24/18 04:03 04:47 06:01 WBC RBC Hgb Hct Neutrophils # Lymphocytes # Monocytes # ABG pH ABG pCO2 ABG pO2 ABG HCO3 ABG Total CO2 ABG O2 Saturation ABG Glucose ABG Lactic Acid Hemoglobin Chloride BUN Creatinine Glucose POC Glucose (mg/dL) 121 H 118 H 132 H Calcium Total Protein Albumin Arterial Blood Glucose Crossmatch 09/24/18 09/24/18 09/24/18 06:52 08:23 08:27 WBC RBC Hgb Hct Neutrophils # Lymphocytes # Monocytes # ABG pH 7.46 H ABG pCO2 ABG pO2 60 L ABG HCO3 27 H ABG Total CO2 28 H ABG O2 Saturation 93.4 L ABG Glucose ABG Lactic Acid Hemoglobin Chloride BUN Creatinine Glucose POC Glucose (mg/dL) 140 H 121 H Calcium Total Protein Albumin Arterial Blood Glucose Crossmatch 09/24/18 09/24/18 09/24/18 10:07 11:01 11:53 WBC RBC Hgb Hct Neutrophils # Lymphocytes # Monocytes # ABG pH ABG pCO2 ABG pO2 ABG HCO3 ABG Total CO2 ABG O2 Saturation ABG Glucose ABG Lactic Acid Hemoglobin Chloride BUN Creatinine Glucose POC Glucose (mg/dL) 109 H 121 H 131 H Calcium Total Protein Albumin Arterial Blood Glucose Crossmatch - Diagnostic Findings Chest x-ray: image reviewed (As noted in HPI.) Assessment and Plan Assessment: Impression: 1 status post redo CABG with 5 grafts. Patient was postoperatively on mechanical ventilation as expected, extubated early this morning around 9 AM. 2 multiple comorbidities including previous CABG in 2008., non-insulin- dependent diabetes, obesity, hypercholesterolemia, strong family history of premature coronary artery disease. Recommendation: Continue incentive spirometry, bronchodilators, early ambulation , we'll follow. Time with Patient: Greater than 30
[2018-09-24] MEDS: HYDROcodone/APAP 5-325MG 1 EACH TAB PO PRN ×2 (13:30→21:14)
[2018-09-24 14:19] LABS: Glucose,Whole Blood 117 mg/dL (75-99)
[2018-09-24] MEDS: CLEVIDIPINE BUTYRATE 25 MG in EMPTY BAG 1 BAG IV SCH (15:20)
[2018-09-24] MEDS ORDERED: HYDROcodone/APAP 5-325MG 1 EACH TAB PO PRN (15:25)
[2018-09-24] MEDS ORDERED: METOPROLOL TARTRATE 12.5 MG TAB PO SCH (15:26)
[2018-09-24] MEDS ORDERED: MAGNESIUM HYDROXIDE 2,400 MG/10 ML CUP PO PRN (15:26)
[2018-09-24] MEDS ORDERED: BISACODYL 10 MG SUPP RECTAL PRN (15:26)
[2018-09-24 15:29] LABS: Glucose,Whole Blood 106 mg/dL (75-99)
[2018-09-24 16:48] LABS: Glucose,Whole Blood 204 mg/dL (75-99)
[2018-09-24] MEDS: METOPROLOL TARTRATE 25 MG TAB PO SCH ×2 (16:54→22:12)
[2018-09-24 17:24] LABS: Glucose,Whole Blood 176 mg/dL (75-99)
[2018-09-24 19:22] LABS: Glucose,Whole Blood 114 mg/dL (75-99)
[2018-09-24] MEDS: SENNOSIDES-DOCUSATE SODIUM 1 EACH TAB PO SCH (20:21)
[2018-09-24 20:23] LABS: Glucose,Whole Blood 97 mg/dL (75-99)
[2018-09-24] MEDS ORDERED: METOPROLOL TARTRATE 25 MG TAB PO SCH (21:00)
[2018-09-24 22:14] LABS: Glucose,Whole Blood 143 mg/dL (75-99)
--- NOTE | 2018-09-24 22:25 | P.CONS ---
History of Present Illness - Reason for Consult Consult date: 09/24/18 medical management Requesting physician: Diomedes Rodríguez - History of Present Illness This is a 68-year-old gentleman patient of dr Henderson and Dr. Peters. he has signifcant CAD with prior cabg over [address] stoddard. he comes in for scheduled redo of CABG for tripple vessel disease as he had exertional dyspnea, patient had previous stress test showing large reversible stress induce ischemia and underwent cardiac catheterization, and he was found to have patent JOSEPH to LAD, tight stenosis in the LAD just beyond the anastomosis, the [place] coronary shows complete occlusion of the LAD prior to the JOSEPH anastomosis there is a vein graft to diagonal that is still patent, however there was no flow in the diagonal beyond the anastomosis. Retrograde flow in the very diseased diagonal coronary artery up into a small segment of the LAD that is distal to the complete occlusion and proximal to the L MEHDI anastomosis. The [place] right coronary artery was completely occluded , the vein graft to the right coronary artery system and there were 2 both completely occluded. Echocardiogram showed good ejection fraction of 50%. he underwent aOn 2017, redo CABG was done, postoperatively heas seen in the icu and is mangaed by Dr Canchola the patient was on mechanical ventilation overnight, and around the 9:00 this morning, the patient was eventually extubated. When I saw the patient this morning, he was on nasal cannula, and in no distress. Chest x-ray showed postoperative changes, and minimal bibasilar atelectasis with small bilateral effusions. He is currently comfortable and hungry and is beeing started on full liquid diet. And his O2 saturation was 94% on 3 L nasal cannula patient denied any chest pain, no shortness of breath, no wheezing, no neurologic or abdominal symtoms no melena, no hematemesis. no prior history of GI bleed in past, denies history of asthma or pneumothorax or prior venous thromboembolism. Review of Systems Constitutional: Reports as per HPI, Denies anorexia, Denies chills, Denies chronic headaches, Denies chronic pain, Denies daytime sleepiness, Denies fatigue, Denies fever, Denies lethargy, Denies malaise, Denies night sweats, Denies poor appetite, Denies sweats, Denies weakness, Denies weight gain, Denies weight loss Ears, nose, mouth and throat: Denies as per HPI, Denies ant. neck pain, Denies bleeding gums, Denies dental pain, Denies dysphagia, Denies epistaxis, Denies headache, Denies hoarseness, Denies mouth pain, Denies nasal congestion, Denies nasal discharge, Denies neck fullness/pressure, Denies neck lump, Denies nose pain, Denies odynophagia, Denies post-nasal drip, Denies sinus pain, Denies sinus pressure, Denies swelling in mouth, Denies swelling in throat, Denies sore throat, Denies vertigo, Denies voice changes Cardiovascular: Reports as per HPI, Denies chest pain, Denies claudication, Denies decreased exercise tolerance, Denies dyspnea on exertion, Denies edema, Denies high blood pressure, Denies irregular heart beat, Denies leg edema, Denies lightheadedness, Denies orthopnea, Denies palpitations, Denies paroxysmal nocturnal dyspnea, Denies phlebitis, Denies rapid heart beat, Denies shortness of breath, Denies syncope Gastrointestinal: Reports as per HPI Genitourinary: Reports as per HPI, Denies decreased libido, Denies difficulties fathering child, Denies discharge, Denies dysuria, Denies erectile dysfunction, Denies flank pain, Denies genital pain, Denies genital sores, Denies hematuria, Denies impotence, Denies incontinence, Denies kidney stones, Denies nocturia, Denies polyuria, Denies testicular lump, Denies testicular pain, Denies urinary frequency, Denies urinary hesitancy, Denies urinary retention Musculoskeletal: Reports as per HPI, Denies arm numbness/tingling, Denies atrophy, Denies fractures, Denies frequent falls, Denies gait dysfunction, Denies hot joints, Denies leg numbness/tingling, Denies limitation of motion, Denies loss of height, Denies low back pain, Denies morning stiffness, Denies muscle cramps, Denies muscle weakness, Denies myalgias, Denies neck pain, Denies neck stiffness, Denies prior amputations, Denies redness of joints, Denies shooting arm pain, Denies shooting leg pain Integumentary: Reports as per HPI Neurological: Reports as per HPI, Denies aphasia, Denies ataxia, Denies balance difficulties, Denies burning pain, Denies change in mentation, Denies change in smell/taste, Denies change in speech, Denies confusion, Denies convulsions, Denies double vision, Denies gait dysfunction, Denies head injury, Denies headaches, Denies hearing difficulties, Denies lack of coordination, Denies loss of vision, Denies memory loss, Denies migraines, Denies motor disturbance, Denies numbness, Denies paralysis, Denies paresthesias, Denies seizures, Denies sensory deficit, Denies spasticity, Denies syncope, Denies tic, Denies tingling , Denies transient paralysis, Denies tremors, Denies vertigo, Denies weakness, Denies visual changes Psychiatric: Denies as per HPI, Denies anhedonia, Denies anxiety, Denies anxiety attacks, Denies change in appetite, Denies change in libido, Denies change in sleep habits, Denies confusion, Denies depression, Denies difficulty concentrating, Denies disorientation, Denies hallucinations, Denies hopelessness , Denies hypersomnia, Denies insomnia, Denies irritability, Denies memory loss, Denies mood swings, Denies paranoia, Denies sadness/tearfulness, Denies sleep disturbances, Denies suicidal ideation Endocrine: Reports as per HPI, Denies cold intolerance, Denies deepening of the voice, Denies excessive sweating, Denies excessive thirst, Denies fatigue, Denies flushing, Denies heat intolerance, Denies high blood sugars, Denies increase in ring/shoe/hat size, Denies low blood sugars, Denies nocturia, Denies palpitations, Denies polydipsia, Denies polyphagia, Denies polyuria, Denies proptosis, Denies recent glucocorticoid use, Denies thyroid mass, Denies weight change Hematologic/Lymphatic: Reports as per HPI Allergic/Immunologic: Reports as per HPI Past Medical History Past Medical History: Asthma, Coronary Artery Disease (CAD), Diabetes Mellitus, Hyperlipidemia, Hypertension, Sleep Apnea/CPAP/BIPAP Additional Past Medical History / Comment(s): unable to use cpap, asthma as a child, currently has cold & congestion, fatty liver History of Any Multi-Drug Resistant Organisms: None Reported Past Surgical History: Appendectomy, Coronary Bypass/CABG, Heart Catheterization With Stent, Orthopedic Surgery Additional Past Surgical History / Comment(s): CABG X5, STENTS X2, SPLEENECTOMY AT AGE 7, LYSIS OF ADHESIONS AGE 8, Past Anesthesia/Blood Transfusion Reactions: No Reported Reaction Date of Last Stent Placement:: 2012 Smoking Status: Former smoker - Past Family History Brother(s) Family Medical History: Coronary Artery Disease (CAD), Myocardial Infarction ([place] ) Additional Family Medical History / Comment(s): CABG Medications and Allergies Home Medications Medication Instructions Recorded Confirmed Type Aspirin 81 mg PO DAILY 08/15/18 09/23/18 History Metoprolol Tartrate [Lopressor] 25 mg PO BID 08/15/18 09/23/18 History Pravastatin Sodium [Pravachol] 40 mg PO HS 08/15/18 09/23/18 History Cetirizine HCl [Zyrtec] 10 mg PO DAILY PRN 09/15/18 09/23/18 History Cholecalciferol [Vitamin D3] 1,000 unit PO DAILY 09/15/18 09/23/18 History Losartan Potassium [Cozaar] 100 mg PO DAILY 09/15/18 09/23/18 History Magnesium 400 mg PO DAILY 09/15/18 09/23/18 History Multivitamin [Men's Multi-Vitamin] 1 tab PO DAILY 09/15/18 09/23/18 History Mv-Mn/C/Glutamin/Lysin/[id number] 1 tab PO TID PRN 09/15/18 09/23/18 History [Airborne Gummies] Resveratrol 200 mg PO DAILY 09/15/18 09/23/18 History amLODIPine [Norvasc] 10 mg PO DAILY 09/15/18 09/23/18 History metFORMIN HCL [Glucophage] 1,000 mg PO BID 09/15/18 09/23/18 History Lisinopril 40 mg PO DAILY 09/23/18 09/23/18 History Allergies Allergy/AdvReac Type Severity Reaction Status Date / Time No Known Allergies Allergy Verified 09/23/18 18:41 Physical Exam Vitals: Vital Signs Temp Pulse Resp BP Pulse Ox 09/24/18 14:00 84 28 H 150/91 96 09/24/18 13:30 86 22 150/91 93 L 09/24/18 13:00 87 18 134/77 94 L 09/24/18 12:30 81 26 H 134/77 92 L 12/15/18 12:13 86 12/15/18 12:00 97.8 F 91 23 92 L 12/15/18 11:59 89 /15/18 11:30 89 21 94 L 15/18 11:00 80 30 H 94 L /15/18 10:30 73 19 96 15/18 10:00 75 30 H 91 L 15/18 09:38 72 15/18 09:30 66 12 94 L 15/18 09:28 66 15/18 09:00 74 27 H 90 L /15/18 08:30 70 18 94 L /15/18 08:00 99.7 F H 74 14 92 L 15/18 07:30 75 23 96 15/18 07:00 75 26 H 94 L 15/18 06:30 85 52 H 86 L 15/18 06:00 73 25 H 95 15/18 05:30 72 22 97 15/18 05:00 72 21 97 15/18 04:30 75 25 H 94 L 15/18 04:00 99.3 F 65 15 99 15/18 03:35 65 12/15/18 03:30 65 14 99 15/18 03:23 65 /15/18 03:00 66 22 98 /15/18 02:30 68 23 98 /15/18 02:00 70 20 98 /15/18 01:30 69 20 95 /15/18 01:00 72 20 98 /15/18 00:30 73 23 98 15/18 00:06 76 28 H 98 15/18 00:00 99.1 F 87 24 96 12/14/18 23:33 71 12/14/18 23:30 70 19 99 12/14/18 23:00 72 19 97 12/14/18 22:30 75 32 H 93 L 12/14/18 22:00 75 23 92 L 12/14/18 21:30 81 15 92 L 12/14/18 21:00 68 24 99 12/14/18 20:30 67 21 98 12/14/18 20:00 97.7 F 66 21 99 12/14/18 19:32 70 12/14/18 19:30 68 16 97 12/14/18 19:25 68 12/14/18 19:00 75 20 96 09/23/18 18:30 80 8 L 92 L 09/23/18 18:00 79 27 H 91 L 09/23/18 17:30 71 21 96 09/23/18 17:00 68 21 95 09/23/18 16:30 68 21 95 09/23/18 16:10 18 Intake and Output 09/24/18 09/24/18 09/24/18 06:59 14:59 22:59 Intake Total 1124.068 849.742 Output Total 400 599 Balance 724.068 250.742 Intake: IV 963 527 ACETAMINOPHEN IV (For NPO 200 100 ) 1,000 mg In Empty Bag 1 bag @ 400 mls/hr IVPB Q6HR [facility] Rx#:[id number] CO/CI 200 50 Lactated Ringers 1,000 ml 350 270 @ 20 mls/hr IV .Q24H [facility] Rx#:[id number] Magnesium Sulfate-D5w Pmx 100 1 gm In Dextrose/Water 1 100ml.bag @ 100 mls/hr IVPB Q1H [facility] Rx#: [id number] Pressure Bags 63 57 ceFAZolin 3 gm In Sodium 50 50 Chloride 0.9% 50 ml @ 100 mls/hr IVPB Q8H [facility] Rx#: [id number] Intake, IV Titration 161.068 22.742 Amount Diltiazem 50 mg In Sodium 38.667 Chloride 0.9% 40 ml @ 5 MG/HR 5 mls/hr IV .Q10H [facility] Rx#:[id number] Insulin Regular 100 unit 27.066 22.742 In Sodium Chloride 0.9% 100 ml @ Per Protocol IV .Q0M [facility] Rx#:[id number] Propofol 1,000 mg In 95.335 Empty Bag 1 bag @ Titrate IV .Q0M [facility] Rx#: [id number] Oral 300 Output: Chest Tube Drainage 150 199 Chest Tube Left Pleural/ 11 Mediastinal Chest Tube Mediastinal 114 120 Chest Tube Right Pleural/ 30 Mediastinal Left/Right Pleural chest 36 38 tube Urine 250 400 Other: Voiding Method Indwelling Catheter Indwelling Catheter Weight 147 kg ABP, PAP, CO, CI - Last 8 Hours Arterial Blood Pressure 133/63 Arterial Blood Pressure 169/134 Arterial Blood Pressure 148/66 Arterial Blood Pressure 133/58 Arterial Blood Pressure 161/78 Arterial Blood Pressure 163/73 Arterial Blood Pressure 137/62 Arterial Blood Pressure 157/75 Arterial Blood Pressure 138/66 Arterial Blood Pressure 143/67 Arterial Blood Pressure 119/55 Arterial Blood Pressure 120/57 Arterial Blood Pressure 121/57 Pulmonary Artery Pressure 48/21 Pulmonary Artery Pressure 40/21 Pulmonary Artery Pressure 40/22 Pulmonary Artery Pressure 40/20 Cardiac Output 7.5 Cardiac Output 7.5 Cardiac Output 7.5 Cardiac Output 7.5 Cardiac Output 7.5 Cardiac Output 7.5 Cardiac Output 7.5 Cardiac Output 7.5 Cardiac Output 7.5 Cardiac Output 7.5 Cardiac Output 7.5 Cardiac Output 7.5 Cardiac Output 8.1 Cardiac Index 2.9 - Constitutional General appearance: average body habitus, cooperative, no disheveled, no mild distress, no morbidly obese, no no acute distress, obese, no severe distress, no thin - EENT Eyes: anicteric sclerae, EOMI, PERRLA, dentition normal, normal appearance ENT: no hard of hearing, hearing grossly normal, no NA/AT, normal oropharynx, no other, no pharyngeal erythema, no thrush, no tonsillar exudates, no tonsillar swelling - Neck Neck: normal ROM - Respiratory Respiratory: bilateral: CTA, negative: diminished, dullness, rales, rhonchi, prolonged expiration, prolonged inspiration - Cardiovascular Rhythm: regular Abnormal Heart Sounds: no systolic murmur, no diastolic murmur, no rub, no S3 Gallop, no S4 Gallop, no click, no other - Gastrointestinal General gastrointestinal: normal bowel sounds, soft - Integumentary Integumentary: normal, normal turgor - Neurologic Neurologic: CNII-XII intact - Musculoskeletal Musculoskeletal: gait normal, strength equal bilaterally - Psychiatric Psychiatric: A&O x's 3, appropriate affect, intact judgment & insight Results CBC & Chem 7: 09/24/18 04:00 09/24/18 04:00 Labs: Abnormal Lab Results - Last 24 Hours (Table) 09/15/18 09/23/18 09/23/18 Range/Units 09:00 14:15 14:15 WBC 20.1 H (3.8-10.6) k/uL RBC 3.95 L (4.30-5.90) m/uL Hgb 11.8 L (13.0-17.5) gm/dL Hct 36.2 L (39.0-53.0) % Neutrophils # 17.8 H (1.3-7.7) k/uL Lymphocytes # (1.0-4.8) k/uL Monocytes # (0-1.0) k/uL ABG pH (7.35-7.45) ABG pCO2 (35-45) mmHg ABG pO2 (83-108) mmHg ABG HCO3 (21-25) mmol/L ABG Total CO2 (19-24) mmol/L ABG O2 Saturation (94-97) % ABG Glucose (75-99) mg/dL ABG Lactic Acid (0.5-1.6) mmol/L Hemoglobin (13.0-17.5) gm/dL Chloride 109 H (98-107) mmol/L BUN (9-20) mg/dL Creatinine 0.62 L (0.66-1.25) mg/dL Glucose 159 H (74-99) mg/dL POC Glucose (mg/dL) (75-99) mg/dL Calcium 8.2 L (8.4-10.2) mg/dL Total Protein 5.5 L (6.3-8.2) g/dL Albumin 3.0 L (3.5-5.0) g/dL Arterial Blood Glucose (75-99) mg/dL Crossmatch See Detail 09/23/18 09/23/18 09/23/18 Range/Units 14:59 16:19 16:55 WBC (3.8-10.6) k/uL RBC (4.30-5.90) m/uL Hgb (13.0-17.5) gm/dL Hct (39.0-53.0) % Neutrophils # (1.3-7.7) k/uL Lymphocytes # (1.0-4.8) k/uL Monocytes # (0-1.0) k/uL ABG pH 7.26 L (7.35-7.45) ABG pCO2 58 H (35-45) mmHg ABG pO2 77 L (83-108) mmHg ABG HCO3 26 H (21-25) mmol/L ABG Total CO2 26 H 28 H (19-24) mmol/L ABG O2 Saturation 98.0 H 93.8 L (94-97) % ABG Glucose 160 H (75-99) mg/dL ABG Lactic Acid 3.3 H* (0.5-1.6) mmol/L Hemoglobin 11.4 L (13.0-17.5) gm/dL Chloride (98-107) mmol/L BUN (9-20) mg/dL Creatinine (0.66-1.25) mg/dL Glucose (74-99) mg/dL POC Glucose (mg/dL) 173 H (75-99) mg/dL Calcium (8.4-10.2) mg/dL Total Protein (6.3-8.2) g/dL Albumin (3.5-5.0) g/dL Arterial Blood Glucose 160 H (75-99) mg/dL Crossmatch 09/23/18 09/23/18 09/23/18 Range/Units 17:11 18:05 18:50 WBC (3.8-10.6) k/uL RBC (4.30-5.90) m/uL Hgb (13.0-17.5) gm/dL Hct (39.0-53.0) % Neutrophils # (1.3-7.7) k/uL Lymphocytes # (1.0-4.8) k/uL Monocytes # (0-1.0) k/uL ABG pH (7.35-7.45) ABG pCO2 (35-45) mmHg ABG pO2 (83-108) mmHg ABG HCO3 (21-25) mmol/L ABG Total CO2 (19-24) mmol/L ABG O2 Saturation (94-97) % ABG Glucose (75-99) mg/dL ABG Lactic Acid (0.5-1.6) mmol/L Hemoglobin (13.0-17.5) gm/dL Chloride (98-107) mmol/L BUN (9-20) mg/dL Creatinine (0.66-1.25) mg/dL Glucose (74-99) mg/dL POC Glucose (mg/dL) 157 H 153 H 162 H (75-99) mg/dL Calcium (8.4-10.2) mg/dL Total Protein (6.3-8.2) g/dL Albumin (3.5-5.0) g/dL Arterial Blood Glucose (75-99) mg/dL Crossmatch 09/23/18 09/23/18 09/23/18 Range/Units 19:00 19:11 19:48 WBC 21.3 H (3.8-10.6) k/uL RBC 4.12 L (4.30-5.90) m/uL Hgb 12.2 L (13.0-17.5) gm/dL Hct 37.7 L (39.0-53.0) % Neutrophils # 18.6 H (1.3-7.7) k/uL Lymphocytes # (1.0-4.8) k/uL Monocytes # 1.4 H (0-1.0) k/uL ABG pH (7.35-7.45) ABG pCO2 (35-45) mmHg ABG pO2 77 L (83-108) mmHg ABG HCO3 (21-25) mmol/L ABG Total CO2 26 H (19-24) mmol/L ABG O2 Saturation (94-97) % ABG Glucose (75-99) mg/dL ABG Lactic Acid (0.5-1.6) mmol/L Hemoglobin (13.0-17.5) gm/dL Chloride (98-107) mmol/L BUN (9-20) mg/dL Creatinine (0.66-1.25) mg/dL Glucose (74-99) mg/dL POC Glucose (mg/dL) 179 H (75-99) mg/dL Calcium (8.4-10.2) mg/dL Total Protein (6.3-8.2) g/dL Albumin (3.5-5.0) g/dL Arterial Blood Glucose (75-99) mg/dL Crossmatch 09/23/18 09/23/18 09/23/18 Range/Units 20:46 21:20 21:32 WBC 17.0 H (3.8-10.6) k/uL RBC 3.85 L (4.30-5.90) m/uL Hgb 11.5 L (13.0-17.5) gm/dL Hct 35.4 L (39.0-53.0) % Neutrophils # 15.1 H (1.3-7.7) k/uL Lymphocytes # 0.9 L (1.0-4.8) k/uL Monocytes # (0-1.0) k/uL ABG pH 7.33 L (7.35-7.45) ABG pCO2 50 H (35-45) mmHg ABG pO2 62 L (83-108) mmHg ABG HCO3 26 H (21-25) mmol/L ABG Total CO2 28 H (19-24) mmol/L ABG O2 Saturation 90.8 L (94-97) % ABG Glucose (75-99) mg/dL ABG Lactic Acid (0.5-1.6) mmol/L Hemoglobin (13.0-17.5) gm/dL Chloride (98-107) mmol/L BUN (9-20) mg/dL Creatinine (0.66-1.25) mg/dL Glucose (74-99) mg/dL POC Glucose (mg/dL) 133 H (75-99) mg/dL Calcium (8.4-10.2) mg/dL Total Protein (6.3-8.2) g/dL Albumin (3.5-5.0) g/dL Arterial Blood Glucose (75-99) mg/dL Crossmatch 09/23/18 09/23/18 09/23/18 Range/Units 21:52 22:41 22:49 WBC (3.8-10.6) k/uL RBC (4.30-5.90) m/uL Hgb (13.0-17.5) gm/dL Hct (39.0-53.0) % Neutrophils # (1.3-7.7) k/uL Lymphocytes # (1.0-4.8) k/uL Monocytes # (0-1.0) k/uL ABG pH (7.35-7.45) ABG pCO2 (35-45) mmHg ABG pO2 72 L (83-108) mmHg ABG HCO3 (21-25) mmol/L ABG Total CO2 26 H (19-24) mmol/L ABG O2 Saturation (94-97) % ABG Glucose (75-99) mg/dL ABG Lactic Acid (0.5-1.6) mmol/L Hemoglobin (13.0-17.5) gm/dL Chloride (98-107) mmol/L BUN (9-20) mg/dL Creatinine (0.66-1.25) mg/dL Glucose (74-99) mg/dL POC Glucose (mg/dL) 112 H 125 H (75-99) mg/dL Calcium (8.4-10.2) mg/dL Total Protein (6.3-8.2) g/dL Albumin (3.5-5.0) g/dL Arterial Blood Glucose (75-99) mg/dL Crossmatch 09/23/18 09/24/18 09/24/18 Range/Units 23:56 00:49 01:54 WBC (3.8-10.6) k/uL RBC (4.30-5.90) m/uL Hgb (13.0-17.5) gm/dL Hct (39.0-53.0) % Neutrophils # (1.3-7.7) k/uL Lymphocytes # (1.0-4.8) k/uL Monocytes # (0-1.0) k/uL ABG pH (7.35-7.45) ABG pCO2 (35-45) mmHg ABG pO2 (83-108) mmHg ABG HCO3 (21-25) mmol/L ABG Total CO2 (19-24) mmol/L ABG O2 Saturation (94-97) % ABG Glucose (75-99) mg/dL ABG Lactic Acid (0.5-1.6) mmol/L Hemoglobin (13.0-17.5) gm/dL Chloride (98-107) mmol/L BUN (9-20) mg/dL Creatinine (0.66-1.25) mg/dL Glucose (74-99) mg/dL POC Glucose (mg/dL) 138 H 153 H 158 H (75-99) mg/dL Calcium (8.4-10.2) mg/dL Total Protein (6.3-8.2) g/dL Albumin (3.5-5.0) g/dL Arterial Blood Glucose (75-99) mg/dL Crossmatch 09/24/18 09/24/18 09/24/18 Range/Units 02:52 04:00 04:00 WBC 14.6 H (3.8-10.6) k/uL RBC 3.49 L (4.30-5.90) m/uL Hgb 10.3 L (13.0-17.5) gm/dL Hct 32.0 L (39.0-53.0) % Neutrophils # 12.3 H (1.3-7.7) k/uL Lymphocytes # (1.0-4.8) k/uL Monocytes # (0-1.0) k/uL ABG pH (7.35-7.45) ABG pCO2 (35-45) mmHg ABG pO2 (83-108) mmHg ABG HCO3 (21-25) mmol/L ABG Total CO2 (19-24) mmol/L ABG O2 Saturation (94-97) % ABG Glucose (75-99) mg/dL ABG Lactic Acid (0.5-1.6) mmol/L Hemoglobin (13.0-17.5) gm/dL Chloride (98-107) mmol/L BUN 26 H (9-20) mg/dL Creatinine (0.66-1.25) mg/dL Glucose 121 H (74-99) mg/dL POC Glucose (mg/dL) 140 H (75-99) mg/dL Calcium 8.3 L (8.4-10.2) mg/dL Total Protein 5.2 L (6.3-8.2) g/dL Albumin 2.9 L (3.5-5.0) g/dL Arterial Blood Glucose (75-99) mg/dL Crossmatch 09/24/18 09/24/18 09/24/18 Range/Units 04:03 04:47 06:01 WBC (3.8-10.6) k/uL RBC (4.30-5.90) m/uL Hgb (13.0-17.5) gm/dL Hct (39.0-53.0) % Neutrophils # (1.3-7.7) k/uL Lymphocytes # (1.0-4.8) k/uL Monocytes # (0-1.0) k/uL ABG pH (7.35-7.45) ABG pCO2 (35-45) mmHg ABG pO2 (83-108) mmHg ABG HCO3 (21-25) mmol/L ABG Total CO2 (19-24) mmol/L ABG O2 Saturation (94-97) % ABG Glucose (75-99) mg/dL ABG Lactic Acid (0.5-1.6) mmol/L Hemoglobin (13.0-17.5) gm/dL Chloride (98-107) mmol/L BUN (9-20) mg/dL Creatinine (0.66-1.25) mg/dL Glucose (74-99) mg/dL POC Glucose (mg/dL) 121 H 118 H 132 H (75-99) mg/dL Calcium (8.4-10.2) mg/dL Total Protein (6.3-8.2) g/dL Albumin (3.5-5.0) g/dL Arterial Blood Glucose (75-99) mg/dL Crossmatch 09/24/18 09/24/18 09/24/18 Range/Units 06:52 08:23 08:27 WBC (3.8-10.6) k/uL RBC (4.30-5.90) m/uL Hgb (13.0-17.5) gm/dL Hct (39.0-53.0) % Neutrophils # (1.3-7.7) k/uL Lymphocytes # (1.0-4.8) k/uL Monocytes # (0-1.0) k/uL ABG pH 7.46 H (7.35-7.45) ABG pCO2 (35-45) mmHg ABG pO2 60 L (83-108) mmHg ABG HCO3 27 H (21-25) mmol/L ABG Total CO2 28 H (19-24) mmol/L ABG O2 Saturation 93.4 L (94-97) % ABG Glucose (75-99) mg/dL ABG Lactic Acid (0.5-1.6) mmol/L Hemoglobin (13.0-17.5) gm/dL Chloride (98-107) mmol/L BUN (9-20) mg/dL Creatinine (0.66-1.25) mg/dL Glucose (74-99) mg/dL POC Glucose (mg/dL) 140 H 121 H (75-99) mg/dL Calcium (8.4-10.2) mg/dL Total Protein (6.3-8.2) g/dL Albumin (3.5-5.0) g/dL Arterial Blood Glucose (75-99) mg/dL Crossmatch 09/24/18 09/24/18 09/24/18 Range/Units 10:07 11:01 11:53 WBC (3.8-10.6) k/uL RBC (4.30-5.90) m/uL Hgb (13.0-17.5) gm/dL Hct (39.0-53.0) % Neutrophils # (1.3-7.7) k/uL Lymphocytes # (1.0-4.8) k/uL Monocytes # (0-1.0) k/uL ABG pH (7.35-7.45) ABG pCO2 (35-45) mmHg ABG pO2 (83-108) mmHg ABG HCO3 (21-25) mmol/L ABG Total CO2 (19-24) mmol/L ABG O2 Saturation (94-97) % ABG Glucose (75-99) mg/dL ABG Lactic Acid (0.5-1.6) mmol/L Hemoglobin (13.0-17.5) gm/dL Chloride (98-107) mmol/L BUN (9-20) mg/dL Creatinine (0.66-1.25) mg/dL Glucose (74-99) mg/dL POC Glucose (mg/dL) 109 H 121 H 131 H (75-99) mg/dL Calcium (8.4-10.2) mg/dL Total Protein (6.3-8.2) g/dL Albumin (3.5-5.0) g/dL Arterial Blood Glucose (75-99) mg/dL Crossmatch 09/24/18 Range/Units 14:05 WBC (3.8-10.6) k/uL RBC (4.30-5.90) m/uL Hgb (13.0-17.5) gm/dL Hct (39.0-53.0) % Neutrophils # (1.3-7.7) k/uL Lymphocytes # (1.0-4.8) k/uL Monocytes # (0-1.0) k/uL ABG pH (7.35-7.45) ABG pCO2 (35-45) mmHg ABG pO2 (83-108) mmHg ABG HCO3 (21-25) mmol/L ABG Total CO2 (19-24) mmol/L ABG O2 Saturation (94-97) % ABG Glucose (75-99) mg/dL ABG Lactic Acid (0.5-1.6) mmol/L Hemoglobin (13.0-17.5) gm/dL Chloride (98-107) mmol/L BUN (9-20) mg/dL Creatinine (0.66-1.25) mg/dL Glucose (74-99) mg/dL POC Glucose (mg/dL) 117 H (75-99) mg/dL Calcium (8.4-10.2) mg/dL Total Protein (6.3-8.2) g/dL Albumin (3.5-5.0) g/dL Arterial Blood Glucose (75-99) mg/dL Crossmatch Assessment and Plan Plan: 1. Coronary artery disease, history of coronary artery bypass grafting, closed vein grafts and patent JOSEPH to the LAD with disease in the LAD distal to the anastomosis , POD # 1 s/p Redo coronary CABG with off-pump coronary bypass grafting 5 specifically sequential left radial artery graft to diagonal and LAD , saphenous vein graft to obtuse marginal, saphenous vein graft to posterior lateral branch, jump vein graft from posterior lateral graft to PDA. Endovascular right greater saphenous vein harvest. Endo radial harvest of the left. performed on 09/[address] Winters. patient remains in ICU. followed closely by thoracic surgeon and dr canchola and pulmonary. patient is on amiodarone, plavix aspirin 2. Diabetes mellitus 2 with hyperglycemia and complication, on insulin drip 3. hypertensive cardiovascul;ar disease, on diltiazem 30 q8h 4. OSAS on cpap machine 5. hyperlipidemia on lipitor 80 6. prior hx of splenectomy 7. 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 dvt prophylaxis heparin sq 9, GI prophylaxis
[2018-09-25] MEDS: HEPARIN SODIUM,PORCINE 5,000 UNIT/ML 1 ML VIAL SQ SCH ×3 (00:04→16:34)
[2018-09-25] MEDS: KETOROLAC 30 MG/ML 1 ML VIAL IVP SCH ×4 (00:04→16:33)
[2018-09-25 00:31] LABS: Glucose,Whole Blood 133 mg/dL (75-99)
[2018-09-25] MEDS: HYDROcodone/APAP 5-325MG 1 EACH TAB PO PRN (02:06)
[2018-09-25 02:19] LABS: Glucose,Whole Blood 93 mg/dL (75-99)
[2018-09-25] MEDS: IPRATROPIUM-ALBUTEROL 3 ML NEB INHALATION PRN ×2 (02:42→06:03)
[2018-09-25 04:33] LABS: Glucose,Whole Blood 134 mg/dL (75-99)
[2018-09-25] MEDS: INSULIN REGULAR 100 UNIT in SODIUM CHLORIDE 0.9% 100 ML IV SCH (05:39)
[2018-09-25] MEDS: CLEVIDIPINE BUTYRATE 25 MG in EMPTY BAG 1 BAG IV SCH (05:41)
[2018-09-25] MEDS: IPRATROPIUM-ALBUTEROL 3 ML NEB INHALATION SCH ×4 (06:05→19:49)
[2018-09-25 06:16] LABS: Basophils % (A) 0 %; Eosinophils # (A) 0.1 k/uL (0-0.7); Eosinophils % (A) 1 %; HCT 34.6 % (39.0-53.0); HGB 11.8 gm/dL (13.0-17.5); Lymphocytes # (A) 1.3 k/uL (1.0-4.8); Lymphocytes % (A) 7 %; MCH 31.2 pg (25.0-35.0); MCHC 34.1 g/dL (31.0-37.0); MCV 91.3 fL (80.0-100.0); Mean Platelet Volume 7.4; Monocytes # (A) 1.1 k/uL (0-1.0); Monocytes % (A) 6 %; Neutrophils # (A) 15.8 k/uL (1.3-7.7); Neutrophils % (A) 86 %; Platelet Count 223 k/uL (150-450); RBC 3.79 m/uL (4.30-5.90); RDW 13.7 % (11.5-15.5); WBC 18.4 k/uL (3.8-10.6)
[2018-09-25 06:24] LABS: Glucose,Whole Blood 155 mg/dL (75-99)
[2018-09-25 06:25] LABS: Ionized Calcium 4.8 mg/dL (4.5-5.3)
[2018-09-25] MEDS: DILTIAZEM ORAL 30 MG TAB PO SCH ×3 (06:25→16:33)
--- NOTE | 2018-09-25 06:29 | XR ---
EXAMINATION TYPE: XR chest 1V portable DATE OF EXAM: 09/25/2018 HISTORY: Post Operative Cardiac Surgery. REFERENCE: Previous study dated 09/24/2018. FINDINGS: The patient is ET tube and NG tube been removed. The Dixon-Wally catheter is been removed. A right internal jugular sheath persists. Bilateral pleural drains remain in place. The heart is markedly enlarged. There is vascular congestion without izabella edema. There are small, bi lateral effusions. IMPRESSION: CONTINUING POSTOPERATIVE CHANGE.
[2018-09-25 06:37] LABS: ALT 24 U/L (21-72); AST 32 U/L (17-59); Albumin 3.4 g/dL (3.5-5.0); Alkaline Phosphatase 63 U/L (38-126); Anion Gap 10 mmol/L; Blood Urea Nitrogen 20 mg/dL (9-20); Calcium 8.6 mg/dL (8.4-10.2); Carbon Dioxide 25 mmol/L (22-30); Chloride 103 mmol/L (98-107); Glucose 148 mg/dL (74-99); Magnesium 1.9 mg/dL (1.6-2.3); Potassium 3.7 mmol/L (3.5-5.1); Sodium 138 mmol/L (137-145); Total Bilirubin 1.1 mg/dL (0.2-1.3); Total Protein 6.1 g/dL (6.3-8.2)
[2018-09-25] MEDS ORDERED: HYDROcodone/APAP 7.5-325MG 1 EACH TAB PO PRN (07:41)
[2018-09-25] MEDS ORDERED: POTASSIUM CHLORIDE ER 20 MEQ TAB.ER PO SCH (08:00)
[2018-09-25] MEDS: CLOPIDOGREL 75 MG TAB PO SCH (08:38)
[2018-09-25] MEDS: PANTOPRAZOLE 40 MG TABLET PO SCH (08:38)
[2018-09-25] MEDS: MAGNESIUM SULFATE-D5W PMX 1 GM in DEXTROSE/WATER 1 100ML.BAG IVPB SCH ×2 (08:38→09:44)
[2018-09-25] MEDS: ASPIRIN 325 MG TAB PO SCH (08:38)
[2018-09-25] MEDS: ATORVASTATIN 40 MG TAB PO SCH (08:38)
[2018-09-25] MEDS: METOPROLOL TARTRATE 50 MG TAB PO SCH ×2 (08:39→20:55)
--- NOTE | 2018-09-25 08:59 | P.PN ---
Subjective Progress Note Date: 09/25/18 Principal diagnosis: Coronary artery disease, history of coronary artery bypass grafting, closed vein grafts and patent JOSEPH to the LAD with disease in the LAD distal to the anastomosis. 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 POD #2 redo coronary coronary bypass grafting, off-pump 5 specifically sequential left radial artery graft to diagonal and LAD, reverse saphenous vein graft to obtuse marginal, reverse saphenous vein graft to posterior lateral branch, jump vein graft from posterior lateral graft to PDA. Endovascular right greater saphenous vein harvest. Endo radial harvest of the left radial artery. Intraoperative transesophageal echocardiogram by anesthesia. The patient is currently sitting up in bed in no acute distress. He is currently hemodynamically stable on no inotropes or pressors. Does complain of significant pain at right chest tube site, stating it difficult to take deep breaths because of the pain. Still requiring high amounts of oxygen. Pleural chest tubes were discontinued yesterday. Patient was up in the chair but has not ambulated in the hallway. Objective - Vital Signs Vital signs: Vital Signs Temp 99 F 09/24/18 20:00 Pulse 98 09/25/18 07:00 Resp 20 09/25/18 07:00 BP 157/92 09/25/18 07:00 Pulse Ox 93 L 09/25/18 07:00 Intake & Output 09/24/18 09/25/18 09/25/18 18:59 06:59 18:59 Intake Total 1811.367 490.125 Output Total 856 1911 Balance 955.367 -1420.875 Weight 147 kg 145.2 kg Intake: IV 671 468 ACETAMINOPHEN IV (For NPO 100 ) 1,000 mg In Empty Bag 1 bag @ 400 mls/hr IVPB Q6HR [facility] Rx#:[id number] CO/CI 50 Lactated Ringers 1,000 ml 390 390 @ 20 mls/hr IV .Q24H [facility] Rx#:[id number] Pressure Bags 81 78 ceFAZolin 3 gm In Sodium 50 Chloride 0.9% 50 ml @ 100 mls/hr IVPB Q8H [facility] Rx#: [id number] Intake, IV Titration 40.367 22.125 Amount Insulin Regular 100 unit 40.367 22.125 In Sodium Chloride 0.9% 100 ml @ Per Protocol IV .Q0M [facility] Rx#:[id number] Oral 1100 Output: Chest Tube Drainage 231 236 Chest Tube Left Pleural/ 16 36 Mediastinal Chest Tube Mediastinal 120 Chest Tube Right Pleural/ 57 200 Mediastinal Left/Right Pleural chest 38 tube Urine 625 1675 Other: Voiding Method Indwelling Catheter Indwelling Catheter ABP, PAP, CO, CI - Last Documented Arterial Blood Pressure 153/65 Pulmonary Artery Pressure 48/21 Cardiac Output 7 Cardiac Index 2.9 - Constitutional General appearance: Present: cooperative, no acute distress, obese - Respiratory Details: Lungs sounds diminished bilaterally. Respirations even, nonlabored. Currently on 15 L high flow nasal cannula with oxygen saturation 93%. Only able to achieve 500-600 mL on his incentive spirometry. Weak cough. Left pleural chest tube to continuous wall suction, 27 mL serosanguineous drainage overnight , 40 mL in the last 24 hours. Right pleural chest tube to continuous wall suction, 150 mL serosanguineous drainage overnight, 250 mL in the last 24 hours. No air leaks present. - Cardiovascular Details: S1, S2 present. Regular rate and rhythm, sinus rhythm on telemetry. Sternum stable. Palpable peripheral pulses bilaterally. Right lower extremity with trace edema. No calf pain or tenderness noted. Antiembolism stockings, SCDs present. Right internal jugular Cordis, right brachial arterial line present. Heart hugger in place with patient demonstrating appropriate use. - Gastrointestinal Gastrointestinal Comment(s): Abdomen soft, nontender, nondistended. Hypoactive bowel sounds present 4 quadrants. Negative flatus. - Genitourinary Genitourinary Comment(s): [place] present draining clear, yellow urine. Output 75-250 mL per hour overnight. - Integumentary Integumentary Comment(s): Skin is warm and dry with evidence of good perfusion. Anterior chest incision well approximated and covered with dry intact dressing. Left radial LUDWIG site well approximated, LUDWIG drain present with minimal drainage. Right lower extremity EVH site well approximated. - Neurologic Neurologic: Present: CNII-XII intact - Musculoskeletal Musculoskeletal: Present: strength equal bilaterally - Psychiatric Psychiatric: Present: A&O x's 3, appropriate affect, intact judgment & insight - Allied health notes Allied health notes reviewed: nursing - Labs CBC & Chem 7: 09/25/18 05:50 09/25/18 05:50 Labs: Abnormal Lab Results - Last 24 Hours (Table) 09/24/18 09/24/18 09/24/18 Range/Units 08:27 10:07 11:01 WBC (3.8-10.6) k/uL RBC (4.30-5.90) m/uL Hgb (13.0-17.5) gm/dL Hct (39.0-53.0) % Neutrophils # (1.3-7.7) k/uL Monocytes # (0-1.0) k/uL ABG pH 7.46 H (7.35-7.45) ABG pO2 60 L (83-108) mmHg ABG HCO3 27 H (21-25) mmol/L ABG Total CO2 28 H (19-24) mmol/L ABG O2 Saturation 93.4 L (94-97) % Glucose (74-99) mg/dL POC Glucose (mg/dL) 109 H 121 H (75-99) mg/dL Total Protein (6.3-8.2) g/dL Albumin (3.5-5.0) g/dL 09/24/18 09/24/18 09/24/18 Range/Units 11:53 14:05 15:16 WBC (3.8-10.6) k/uL RBC (4.30-5.90) m/uL Hgb (13.0-17.5) gm/dL Hct (39.0-53.0) % Neutrophils # (1.3-7.7) k/uL Monocytes # (0-1.0) k/uL ABG pH (7.35-7.45) ABG pO2 (83-108) mmHg ABG HCO3 (21-25) mmol/L ABG Total CO2 (19-24) mmol/L ABG O2 Saturation (94-97) % Glucose (74-99) mg/dL POC Glucose (mg/dL) 131 H 117 H 106 H (75-99) mg/dL Total Protein (6.3-8.2) g/dL Albumin (3.5-5.0) g/dL 09/24/18 09/24/18 09/24/18 Range/Units 16:32 17:13 19:10 WBC (3.8-10.6) k/uL RBC (4.30-5.90) m/uL Hgb (13.0-17.5) gm/dL Hct (39.0-53.0) % Neutrophils # (1.3-7.7) k/uL Monocytes # (0-1.0) k/uL ABG pH (7.35-7.45) ABG pO2 (83-108) mmHg ABG HCO3 (21-25) mmol/L ABG Total CO2 (19-24) mmol/L ABG O2 Saturation (94-97) % Glucose (74-99) mg/dL POC Glucose (mg/dL) 204 H 176 H 114 H (75-99) mg/dL Total Protein (6.3-8.2) g/dL Albumin (3.5-5.0) g/dL 09/24/18 09/25/18 09/25/18 Range/Units 22:03 00:19 04:20 WBC (3.8-10.6) k/uL RBC (4.30-5.90) m/uL Hgb (13.0-17.5) gm/dL Hct (39.0-53.0) % Neutrophils # (1.3-7.7) k/uL Monocytes # (0-1.0) k/uL ABG pH (7.35-7.45) ABG pO2 (83-108) mmHg ABG HCO3 (21-25) mmol/L ABG Total CO2 (19-24) mmol/L ABG O2 Saturation (94-97) % Glucose (74-99) mg/dL POC Glucose (mg/dL) 143 H 133 H 134 H (75-99) mg/dL Total Protein (6.3-8.2) g/dL Albumin (3.5-5.0) g/dL 09/25/18 09/25/18 09/25/18 Range/Units 05:50 05:50 06:13 WBC 18.4 H (3.8-10.6) k/uL RBC 3.79 L (4.30-5.90) m/uL Hgb 11.8 L (13.0-17.5) gm/dL Hct 34.6 L (39.0-53.0) % Neutrophils # 15.8 H (1.3-7.7) k/uL Monocytes # 1.1 H (0-1.0) k/uL ABG pH (7.35-7.45) ABG pO2 (83-108) mmHg ABG HCO3 (21-25) mmol/L ABG Total CO2 (19-24) mmol/L ABG O2 Saturation (94-97) % Glucose 148 H (74-99) mg/dL POC Glucose (mg/dL) 155 H (75-99) mg/dL Total Protein 6.1 L (6.3-8.2) g/dL Albumin 3.4 L (3.5-5.0) g/dL - Imaging and Cardiology Chest x-ray: report reviewed, image reviewed Assessment and Plan (1) Hypertension Current Visit: Yes Status: Chronic Code(s): I10 - ESSENTIAL (PRIMARY) HYPERTENSION SNOMED Code(s): 22568273 (2) Hyperlipidemia Current Visit: Yes Status: Chronic Code(s): E78.5 - HYPERLIPIDEMIA, UNSPECIFIED SNOMED Code(s): 27492622 (3) Family history of early CAD Current Visit: Yes Status: Chronic Code(s): Z82.49 - FAMILY HX OF ISCHEM HEART DIS AND OTH DIS OF THE CIRC SYS SNOMED Code(s): 013050951 (4) History of coronary artery bypass graft Current Visit: Yes Status: Chronic Code(s): Z95.1 - PRESENCE OF AORTOCORONARY BYPASS GRAFT SNOMED Code(s): 808824769 (5) CAD (coronary artery disease) Current Visit: Yes Status: Chronic Code(s): I25.10 - ATHSCL HEART DISEASE OF [place] CORONARY ARTERY W/O ANG PCTRS SNOMED Code(s): 87048389 (6) Diabetes mellitus Current Visit: Yes Status: Chronic Code(s): E11.9 - TYPE 2 DIABETES MELLITUS WITHOUT COMPLICATIONS SNOMED Code(s): 08663764 (7) Obesity Current Visit: Yes Status: Chronic Code(s): E66.9 - OBESITY, UNSPECIFIED SNOMED Code(s): 566783535 (8) Tobacco dependence in remission Current Visit: No Status: Resolved Code(s): F17.201 - NICOTINE DEPENDENCE, UNSPECIFIED, IN REMISSION SNOMED Code(s): 002075913 (9) Obstructive sleep apnea Current Visit: Yes Status: Chronic Code(s): G47.33 - OBSTRUCTIVE SLEEP APNEA (ADULT) (PEDIATRIC) SNOMED Code(s): 42718203 (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 Continue aspirin, plavix, beta-david therapy. Will increase beta-david therapy as tolerated. Will add Cozaar for better blood pressure control. 2. Continue Cardizem for radial artery spasm. 3. Wean O2 as tolerated. Encourage incentive spirometry use 10 times every hour while awake. Patient needs aggressive pulmonary hygiene. 4. Increase activity as tolerated. Patient should be up in chair at the very minimum for every meal. Ambulate in hallway. PT/OT/cardiac rehab following. 5. Will monitor daily labs and x-rays. Electrolyte replacement per protocol. 6. Will discontinue left and right pleural chest tube. Will discontinue left LUDWIG. Discontinue Cordis. Discontinue hearn. 7. Insulin management per primary care service. 8. Bronchodilators per pulmonology. 9. Pain control with current medication regimen. [place] dose increased for better pain control. 10. More recommendations to follow. Time with Patient: Greater than 30
[2018-09-25 09:01] LABS: Glucose,Whole Blood 149 mg/dL (75-99)
[2018-09-25] MEDS: LOSARTAN 50 MG TAB PO SCH (09:15)
[2018-09-25] MEDS ORDERED: FUROSEMIDE 10 MG/ML 2 ML VIAL IV ONE (09:33)
[2018-09-25] MEDS: HYDROcodone/APAP 7.5-325MG 1 EACH TAB PO PRN ×2 (10:04→16:33)
[2018-09-25 10:16] LABS: Glucose,Whole Blood 128 mg/dL (75-99)
[2018-09-25 12:06] LABS: Glucose,Whole Blood 117 mg/dL (75-99)
--- NOTE | 2018-09-25 14:05 | P.PN ---
Subjective Progress Note Date: 09/25/18 Principal diagnosis: Status post redo CABG, postoperative day #2. Off pump 5 sequential left radial artery graft to diagonal and LAD reverse saphenous vein graft to obtuse marginal and reverse saphenous graft to posterior lateral branch jump vein graft from posterior lateral graft to PDA Coronary artery disease, history of coronary artery bypass grafting, closed vein grafts and patent JOSEPH to the LAD with disease in the LAD distal to the anastomosis. 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 Patient was reevaluated today on 09/25/2018, he is status post redo CABG, postoperative day #2. Patient is doing well, he is on few liters nasal cannula , denies any specific complaints, chest x-ray showed evidence of mild congestive heart failure, hence one dose of Lasix was given. Minimal bibasilar atelectasis also noted on the chest x-ray, patient is doing poorly with incentive spirometer. CBC showed WBC count of 18.4 basic metabolic profile is normal. Objective - Vital Signs Vital signs: Vital Signs Temp 98.1 F 09/25/18 12:00 Pulse 73 09/25/18 12:00 Resp 20 09/25/18 12:00 BP 149/94 09/25/18 12:00 Pulse Ox 95 09/25/18 12:00 Intake & Output 09/24/18 09/25/18 09/25/18 18:59 06:59 18:59 Intake Total 1811.367 490.125 903.442 Output Total 856 1911 653 Balance 955.367 -1420.875 250.442 Weight 147 kg 145.2 kg Intake: IV 671 468 180 ACETAMINOPHEN IV (For NPO 100 ) 1,000 mg In Empty Bag 1 bag @ 400 mls/hr IVPB Q6HR [facility] Rx#:[id number] CO/CI 50 Lactated Ringers 1,000 ml 390 390 150 @ 20 mls/hr IV .Q24H [facility] Rx#:[id number] Pressure Bags 81 78 30 ceFAZolin 3 gm In Sodium 50 Chloride 0.9% 50 ml @ 100 mls/hr IVPB Q8H [facility] Rx#: [id number] Intake, IV Titration 40.367 22.125 223.442 Amount Insulin Regular 100 unit 40.367 22.125 23.442 In Sodium Chloride 0.9% 100 ml @ Per Protocol IV .Q0M [facility] Rx#:[id number] Magnesium Sulfate-D5w Pmx 200 1 gm In Dextrose/Water 1 100ml.bag @ 100 mls/hr IVPB Q1H [facility] Rx#: [id number] Oral 1100 500 Output: Chest Tube Drainage 231 236 78 Chest Tube Left Pleural/ 16 36 48 Mediastinal Chest Tube Mediastinal 120 Chest Tube Right Pleural/ 57 200 30 Mediastinal Left/Right Pleural chest 38 tube Urine 625 8735 575 Other: Voiding Method Indwelling Catheter Indwelling Catheter Indwelling Catheter ABP, PAP, CO, CI - Last Documented Arterial Blood Pressure 153/65 Pulmonary Artery Pressure 48/21 Cardiac Output 7.5 Cardiac Index 2.9 - Exam Physical Exam: Revealed a 68-year-old white male in no distress. On few liters nasal cannula Head: Atraumatic, normocephalic. HEENT:[Neck is supple.] [No neck masses.] [No thyromegaly.] [No JVD.] Chest: [Diminished breath sounds at the bases, left sided chest tube is noted.] Cardiac Exam: [Normal S1 and S2, no S3 gallop, positive pericardial rub. No murmur. Abdomen: [Obese, Soft, nontender, no megaly, no rebound, no guarding, normal bowel sounds.] Extremities: Lower extremities are both are wrapped with Dereck wrapping. Neurological Exam: [No gross focal neurologic deficit.] Psychiatric: Normal mood, affect and mental status examination. - Labs CBC & Chem 7: 09/25/18 05:50 09/25/18 05:50 Labs: Abnormal Lab Results - Last 24 Hours (Table) 09/24/18 09/24/18 09/24/18 Range/Units 14:05 15:16 16:32 WBC (3.8-10.6) k/uL RBC (4.30-5.90) m/uL Hgb (13.0-17.5) gm/dL Hct (39.0-53.0) % Neutrophils # (1.3-7.7) k/uL Monocytes # (0-1.0) k/uL Glucose (74-99) mg/dL POC Glucose (mg/dL) 117 H 106 H 204 H (75-99) mg/dL Total Protein (6.3-8.2) g/dL Albumin (3.5-5.0) g/dL 09/24/18 09/24/18 09/24/18 Range/Units 17:13 19:10 22:03 WBC (3.8-10.6) k/uL RBC (4.30-5.90) m/uL Hgb (13.0-17.5) gm/dL Hct (39.0-53.0) % Neutrophils # (1.3-7.7) k/uL Monocytes # (0-1.0) k/uL Glucose (74-99) mg/dL POC Glucose (mg/dL) 176 H 114 H 143 H (75-99) mg/dL Total Protein (6.3-8.2) g/dL Albumin (3.5-5.0) g/dL 09/25/18 09/25/18 09/25/18 Range/Units 00:19 04:20 05:50 WBC (3.8-10.6) k/uL RBC (4.30-5.90) m/uL Hgb (13.0-17.5) gm/dL Hct (39.0-53.0) % Neutrophils # (1.3-7.7) k/uL Monocytes # (0-1.0) k/uL Glucose 148 H (74-99) mg/dL POC Glucose (mg/dL) 133 H 134 H (75-99) mg/dL Total Protein 6.1 L (6.3-8.2) g/dL Albumin 3.4 L (3.5-5.0) g/dL 09/25/18 09/25/18 09/25/18 Range/Units 05:50 06:13 08:49 WBC 18.4 H (3.8-10.6) k/uL RBC 3.79 L (4.30-5.90) m/uL Hgb 11.8 L (13.0-17.5) gm/dL Hct 34.6 L (39.0-53.0) % Neutrophils # 15.8 H (1.3-7.7) k/uL Monocytes # 1.1 H (0-1.0) k/uL Glucose (74-99) mg/dL POC Glucose (mg/dL) 155 H 149 H (75-99) mg/dL Total Protein (6.3-8.2) g/dL Albumin (3.5-5.0) g/dL 09/25/18 09/25/18 Range/Units 10:01 11:55 WBC (3.8-10.6) k/uL RBC (4.30-5.90) m/uL Hgb (13.0-17.5) gm/dL Hct (39.0-53.0) % Neutrophils # (1.3-7.7) k/uL Monocytes # (0-1.0) k/uL Glucose (74-99) mg/dL POC Glucose (mg/dL) 128 H 117 H (75-99) mg/dL Total Protein (6.3-8.2) g/dL Albumin (3.5-5.0) g/dL Assessment and Plan Assessment: Impression: 1 status post redo CABG with 5 grafts. Postoperative day #2. 2 postoperative atelectasis and suspect mild congestive heart failure changes, expected postoperatively. 3 benign essential hypertension 4 hyperlipidemia 5 type 2 diabetes 6 obesity 7 tobacco dependence in remission 8 obstructive sleep apnea syndrome on CPAP 9 previous splenectomy 10 peripheral vascular disease. Mostly affecting lower extremities. Recommendation: Continue all cardiac meds including aspirin, Plavix, beta blockers and Cozaar to control blood pressure. Increase activity as tolerated. Continue O2 and titrate down to keep saturation above 90%. Discontinue lines when felt necessary by thoracic surgery. Discontinue chest tubes, as per cardiac surgery continue bronchodilators, continue incentive spirometry, continue pain control as necessary, will follow. Time with Patient: Less than 30
[2018-09-25 14:25] LABS: Glucose,Whole Blood 154 mg/dL (75-99)
[2018-09-25 16:32] LABS: Glucose,Whole Blood 100 mg/dL (75-99)
[2018-09-25] MEDS: metFORMIN 500 MG TAB PO SCH (16:34)
[2018-09-25] MEDS: LACTATED RINGERS 1,000 ML IV SCH (20:03)
[2018-09-25 20:25] LABS: Glucose,Whole Blood 151 mg/dL (75-99)
[2018-09-25] MEDS: INSULIN ASPART 100 UNIT/ML 1 ML 10 ML VIAL SQ SCH (20:54)
[2018-09-25] MEDS: SENNOSIDES-DOCUSATE SODIUM 1 EACH TAB PO SCH (20:55)
--- NOTE | 2018-09-25 21:07 | P.PN ---
Subjective Progress Note Date: 09/25/18 This is a 68-year-old gentleman patient of dr Henderson and Dr. Peters. he has signifcant CAD with prior cabg over [address] stoddard. he comes in for scheduled redo of CABG for tripple vessel disease as he had exertional dyspnea, patient had previous stress test showing large reversible stress induce ischemia and underwent cardiac catheterization, and he was found to have patent JOSEPH to LAD, tight stenosis in the LAD just beyond the anastomosis, the [place] coronary shows complete occlusion of the LAD prior to the JOSEPH anastomosis there is a vein graft to diagonal that is still patent, however there was no flow in the diagonal beyond the anastomosis. Retrograde flow in the very diseased diagonal coronary artery up into a small segment of the LAD that is distal to the complete occlusion and proximal to the L MEHDI anastomosis. The [place] right coronary artery was completely occluded , the vein graft to the right coronary artery system and there were 2 both completely occluded. Echocardiogram showed good ejection fraction of 50%. he underwent aOn 2017, redo CABG was done, postoperatively heas seen in the icu and is mangaed by Dr Canchola the patient was on mechanical ventilation overnight, and around the 9:00 this morning, the patient was eventually extubated. When I saw the patient this morning, he was on nasal cannula, and in no distress. Chest x-ray showed postoperative changes, and minimal bibasilar atelectasis with small bilateral effusions. He is currently comfortable and hungry and is beeing started on full liquid diet. And his O2 saturation was 94% on 3 L nasal cannula patient denied any chest pain, no shortness of breath, no wheezing, no neurologic or abdominal symtoms no melena, no hematemesis. no prior history of GI bleed in past, denies history of asthma or pneumothorax or prior venous thromboembolism. 09/25: patient currently is in ICU. He is doing well without any angina pain or dyspnea, pt has rib pain left [place] where his the bar on chest harness rest in his chest. chest tube diana removed today. no hematoma formation on chest wall insulin drip running with current 8 hour requirements of about 27 units today patient no receptive on using basal bolus regimen for dm control, aic 6.5. will resume metformin 1 gm bid. insulin drip will be discontinued around 8 pm today Objective - Vital Signs Vital signs: Vital Signs Temp 98.1 F 09/25/18 12:00 Pulse 85 09/25/18 15:30 Resp 27 H 09/25/18 15:30 BP 132/80 09/25/18 15:30 Pulse Ox 95 09/25/18 15:30 Intake & Output 09/24/18 09/25/18 09/25/18 18:59 06:59 18:59 Intake Total 1811.367 490.125 976.842 Output Total 856 1911 653 Balance 955.367 -1420.875 323.842 Weight 147 kg 145.2 kg Intake: IV 671 468 249 ACETAMINOPHEN IV (For NPO 100 ) 1,000 mg In Empty Bag 1 bag @ 400 mls/hr IVPB Q6HR [facility] Rx#:[id number] CO/CI 50 Lactated Ringers 1,000 ml 390 390 210 @ 20 mls/hr IV .Q24H [facility] Rx#:[id number] Pressure Bags 81 78 39 ceFAZolin 3 gm In Sodium 50 Chloride 0.9% 50 ml @ 100 mls/hr IVPB Q8H [facility] Rx#: [id number] Intake, IV Titration 40.367 22.125 227.842 Amount Insulin Regular 100 unit 40.367 22.125 27.842 In Sodium Chloride 0.9% 100 ml @ Per Protocol IV .Q0M [facility] Rx#:[id number] Magnesium Sulfate-D5w Pmx 200 1 gm In Dextrose/Water 1 100ml.bag @ 100 mls/hr IVPB Q1H [facility] Rx#: [id number] Oral 1100 500 Output: Chest Tube Drainage 231 236 78 Chest Tube Left Pleural/ 16 36 48 Mediastinal Chest Tube Mediastinal 120 Chest Tube Right Pleural/ 57 200 30 Mediastinal Left/Right Pleural chest 38 tube Urine 625 1931 575 Other: Voiding Method Indwelling Catheter Indwelling Catheter Indwelling Catheter ABP, PAP, CO, CI - Last Documented Arterial Blood Pressure 118/58 Pulmonary Artery Pressure 48/21 Cardiac Output 7.5 Cardiac Index 2.9 - Constitutional General appearance: Present: cooperative, no acute distress, obese - EENT Eyes: Present: anicteric sclerae, EOMI, dentition normal, normal appearance ENT: Present: hard of hearing, NA/AT, normal oropharynx - Neck Neck: Present: normal ROM - Respiratory Respiratory: bilateral: CTA, negative: diminished, dullness, rales, rhonchi - Cardiovascular Rhythm: regular Heart sounds: normal: S1, S2 Abnormal Heart Sounds: Absent: systolic murmur, diastolic murmur, rub, S3 Gallop , S4 Gallop, click, other - Gastrointestinal General gastrointestinal: Present: normal bowel sounds, soft - Integumentary Integumentary: Present: decreased turgor, normal - Neurologic Neurologic: Present: CNII-XII intact - Musculoskeletal Musculoskeletal: Present: gait normal, strength equal bilaterally - Labs CBC & Chem 7: 09/25/18 05:50 09/25/18 05:50 Labs: Abnormal Lab Results - Last 24 Hours (Table) 09/24/18 09/24/18 09/24/18 Range/Units 16:32 17:13 19:10 WBC (3.8-10.6) k/uL RBC (4.30-5.90) m/uL Hgb (13.0-17.5) gm/dL Hct (39.0-53.0) % Neutrophils # (1.3-7.7) k/uL Monocytes # (0-1.0) k/uL Glucose (74-99) mg/dL POC Glucose (mg/dL) 204 H 176 H 114 H (75-99) mg/dL Total Protein (6.3-8.2) g/dL Albumin (3.5-5.0) g/dL 09/24/18 09/25/18 09/25/18 Range/Units 22:03 00:19 04:20 WBC (3.8-10.6) k/uL RBC (4.30-5.90) m/uL Hgb (13.0-17.5) gm/dL Hct (39.0-53.0) % Neutrophils # (1.3-7.7) k/uL Monocytes # (0-1.0) k/uL Glucose (74-99) mg/dL POC Glucose (mg/dL) 143 H 133 H 134 H (75-99) mg/dL Total Protein (6.3-8.2) g/dL Albumin (3.5-5.0) g/dL 09/25/18 09/25/18 09/25/18 Range/Units 05:50 05:50 06:13 WBC 18.4 H (3.8-10.6) k/uL RBC 3.79 L (4.30-5.90) m/uL Hgb 11.8 L (13.0-17.5) gm/dL Hct 34.6 L (39.0-53.0) % Neutrophils # 15.8 H (1.3-7.7) k/uL Monocytes # 1.1 H (0-1.0) k/uL Glucose 148 H (74-99) mg/dL POC Glucose (mg/dL) 155 H (75-99) mg/dL Total Protein 6.1 L (6.3-8.2) g/dL Albumin 3.4 L (3.5-5.0) g/dL 09/25/18 09/25/18 09/25/18 Range/Units 08:49 10:01 11:55 WBC (3.8-10.6) k/uL RBC (4.30-5.90) m/uL Hgb (13.0-17.5) gm/dL Hct (39.0-53.0) % Neutrophils # (1.3-7.7) k/uL Monocytes # (0-1.0) k/uL Glucose (74-99) mg/dL POC Glucose (mg/dL) 149 H 128 H 117 H (75-99) mg/dL Total Protein (6.3-8.2) g/dL Albumin (3.5-5.0) g/dL 09/25/18 Range/Units 14:07 WBC (3.8-10.6) k/uL RBC (4.30-5.90) m/uL Hgb (13.0-17.5) gm/dL Hct (39.0-53.0) % Neutrophils # (1.3-7.7) k/uL Monocytes # (0-1.0) k/uL Glucose (74-99) mg/dL POC Glucose (mg/dL) 154 H (75-99) mg/dL Total Protein (6.3-8.2) g/dL Albumin (3.5-5.0) g/dL Assessment and Plan Plan: 1. Coronary artery disease, history of coronary artery bypass grafting, closed vein grafts and patent JOSEPH to the LAD with disease in the LAD distal to the anastomosis , POD # 1 s/p Redo coronary CABG with off-pump coronary bypass grafting 5 specifically sequential left radial artery graft to diagonal and LAD , saphenous vein graft to obtuse marginal, saphenous vein graft to posterior lateral branch, jump vein graft from posterior lateral graft to PDA. Endovascular right greater saphenous vein harvest. Endo radial harvest of the left. performed on 09/[address] Winters. patient remains in ICU. followed closely by thoracic surgeon and dr canchola and pulmonary. patient is on amiodarone, plavix aspirin 2. Diabetes mellitus 2 with hyperglycemia and complication, on insulin drip , transitioned to aral metofmin per home dose 1 gm bid. aic 6.5 3. hypertensive cardiovascul;ar disease, on diltiazem 30 q8h 4. OSAS on cpap machine 5. hyperlipidemia on lipitor 80 6. prior hx of splenectomy 7. 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 dvt prophylaxis heparin sq 9, GI prophylaxis
[2018-09-26] MEDS: KETOROLAC 30 MG/ML 1 ML VIAL IVP SCH ×4 (00:07→17:57)
[2018-09-26] MEDS: DILTIAZEM ORAL 30 MG TAB PO SCH ×5 (00:07→22:08)
[2018-09-26] MEDS: HEPARIN SODIUM,PORCINE 5,000 UNIT/ML 1 ML VIAL SQ SCH ×3 (00:07→16:12)
[2018-09-26] MEDS: HYDROcodone/APAP 7.5-325MG 1 EACH TAB PO PRN (00:07)
[2018-09-26] MEDS ORDERED: DEXTROSE 5% IN WATER 100 ML with AMIODARONE 150 MG IV ONE ×3 (00:51→15:45)
[2018-09-26] MEDS ORDERED: FUROSEMIDE 10 MG/ML 2 ML VIAL IV ONE ×2 (01:13→09:01)
[2018-09-26 06:01] LABS: HCT 33.4 % (39.0-53.0); HGB 10.8 gm/dL (13.0-17.5); MCH 30.4 pg (25.0-35.0); MCHC 32.5 g/dL (31.0-37.0); MCV 93.4 fL (80.0-100.0); Mean Platelet Volume 7.9; Platelet Count 224 k/uL (150-450); RBC 3.57 m/uL (4.30-5.90); RDW 13.6 % (11.5-15.5)
[2018-09-26 06:25] LABS: ALT 27 U/L (21-72); AST 25 U/L (17-59); Albumin 3.3 g/dL (3.5-5.0); Alkaline Phosphatase 65 U/L (38-126); Anion Gap 9 mmol/L; Blood Urea Nitrogen 23 mg/dL (9-20); Calcium 8.3 mg/dL (8.4-10.2); Carbon Dioxide 27 mmol/L (22-30); Chloride 103 mmol/L (98-107); Glucose 130 mg/dL (74-99); Phosphorus 2.2 mg/dL (2.5-4.5); Potassium 4.1 mmol/L (3.5-5.1); Sodium 139 mmol/L (137-145)
[2018-09-26 07:14] LABS: Glucose,Whole Blood 140 mg/dL (75-99)
[2018-09-26] MEDS: PANTOPRAZOLE 40 MG TABLET PO SCH (07:14)
[2018-09-26] MEDS: metFORMIN 500 MG TAB PO SCH ×2 (07:14→17:58)
[2018-09-26] MEDS: INSULIN ASPART 100 UNIT/ML 1 ML 10 ML VIAL SQ SCH ×4 (07:15→21:03)
[2018-09-26] MEDS: IPRATROPIUM-ALBUTEROL 3 ML NEB INHALATION SCH ×4 (07:46→19:52)
[2018-09-26] MEDS: METOPROLOL TARTRATE 50 MG TAB PO SCH ×2 (08:27→20:58)
[2018-09-26] MEDS: LOSARTAN 50 MG TAB PO SCH (08:27)
[2018-09-26] MEDS: AMIODARONE 450 MG in DEXTROSE 5% IN WATER 250 ML IV PRN ×4 (08:28)
[2018-09-26] MEDS: CLOPIDOGREL 75 MG TAB PO SCH (08:28)
[2018-09-26] MEDS: ATORVASTATIN 40 MG TAB PO SCH (08:28)
[2018-09-26] MEDS: ASPIRIN 325 MG TAB PO SCH (08:28)
--- NOTE | 2018-09-26 08:40 | XR ---
EXAMINATION TYPE: XR chest 1V portable DATE OF EXAM: 09/26/2018 CLINICAL HISTORY: Difficulty breathing progress study. Post open CABG procedure. TECHNIQUE: Single AP portable upright view of the chest is obtained. COMPARISON: Chest x-ray from one day earlier and older studies. FINDINGS: There is interval removal of right internal jugular cordis sheath. Overlying sternal wires and mediastinal clips are redemonstrated. There is interval removal of bilateral chest tubes. There is persisting cardiomegaly with slight improvement in central vascular congestion. There is per sistent bibasilar opacity and small left greater than right pleural effusions. No sizable pneumothora x is seen bilaterally. Visualized osseous structures are intact. Somewhat low lung volumes are redemo nstrated stable. IMPRESSION: Interval removal bilateral chest tubes, no sizable pneumothorax is seen. There is persist ent cardiomegaly and low lung volumes with improving central vascular congestion. There is persistent but improving bibasilar acute atelectasis and/or infiltrate. There are persistent small to tiny left greater than right pleural effusions.
[2018-09-26] MEDS ORDERED: SODIUM PHOSPHATE 10 MMOL in SODIUM CHLORIDE 0.9% 250 ML IVPB ONE (08:50)
[2018-09-26] MEDS ORDERED: SODIUM GLYCEROPHOSPHATE 10 MMOL in SODIUM CHLORIDE 0.9% 250 ML IV ONE (09:00)
--- NOTE | 2018-09-26 09:33 | P.PN ---
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 POD #3 redo coronary coronary bypass grafting, off-pump 5 specifically sequential left radial artery graft to diagonal and LAD, reverse saphenous vein graft to obtuse marginal, reverse saphenous vein graft to posterior lateral branch, jump vein graft from posterior lateral graft to PDA. Endovascular right greater saphenous vein harvest. Endo radial harvest of the left radial artery. Intraoperative transesophageal echocardiogram by anesthesia. Patient is currently sitting up to the bedside chair. He is in no acute distress. Currently denies any complaints of pain at this time, he remains on Airvo support 35 L with 73% FiO2. His oxygen saturations are currently 95%. Remains hemodynamically stable. He reports that he ambulated in the intensive care unit all way with assistance this morning. He went into atrial fibrillation this morning around 3 AM, reports that he does have a history of atrial fibrillation postoperatively from his last coronary artery bypass grafting surgery. Objective - Vital Signs Vital signs: Vital Signs Temp 97.9 F 09/26/18 08:00 Pulse 90 09/26/18 08:30 Resp 17 09/26/18 08:30 BP 154/99 09/26/18 08:30 Pulse Ox 93 L 09/26/18 08:30 Intake & Output 09/25/18 09/26/18 09/26/18 18:59 06:59 18:59 Intake Total 2043.242 718 473.8 Output Total 853 850 Balance 1190.242 -132 473.8 Intake: IV 309 718 56.5 Amiodarone 450 mg In 198 16.5 Dextrose 5% in Water 250 ml @ 1 MG/MIN 34.53 mls/ hr IV .Q7H31M PRN Rx#: [id number] Dextrose 5% in Water 100 300 ml @ 618 mls/hr IV .Q10M ONE with Amiodarone 150 mg Rx#:[id number] Lactated Ringers 1,000 ml 270 220 40 @ 20 mls/hr IV .Q24H [facility] Rx#:[id number] Pressure Bags 39 Intake, IV Titration 234.242 267.3 Amount Amiodarone 450 mg In 8.3 Dextrose 5% in Water 250 ml @ 0.25 MG/MIN 8.33 mls /hr IV .Q24H [facility] Rx#: [id number] Amiodarone 450 mg In 259 Dextrose 5% in Water 250 ml @ 1 MG/MIN 34.53 mls/ hr IV .Q7H31M PRN Rx#: [id number] Insulin Regular 100 unit 34.242 In Sodium Chloride 0.9% 100 ml @ Per Protocol IV .Q0M [facility] Rx#:[id number] Magnesium Sulfate-D5w Pmx 200 1 gm In Dextrose/Water 1 100ml.bag @ 100 mls/hr IVPB Q1H [facility] Rx#: [id number] Oral 1500 150 Output: Chest Tube Drainage 78 Chest Tube Left Pleural/ 48 Mediastinal Chest Tube Right Pleural/ 30 Mediastinal Urine 575 650 Stool 200 200 Other: Voiding Method Indwelling Catheter Indwelling Catheter # Voids 0 1 ABP, PAP, CO, CI - Last Documented Arterial Blood Pressure 118/58 Pulmonary Artery Pressure 48/21 Cardiac Output 7.5 Cardiac Index 2.9 - Constitutional General appearance: Present: cooperative, morbidly obese, no acute distress - Respiratory Details: Lung sounds are essentially clear to his bilateral upper lobes, diminished to his bilateral bases. Respirations are symmetrical and nonlabored. Oxygen saturation are 95% with Airvo support 35 L with 73% FiO2. He is achieving 500 mL on his incentive spirometry with encouragement. - Cardiovascular Details: Irregular rhythm with controlled rate. S1 and S2 present, negative for S3, gallop or murmur. Sternum is stable. Bedside telemetry showing atrial fibrillation heart rate 74. +1 peripheral edema to his bilateral lower extremities. Heart hugger is in place and he is demonstrating appropriate use. Knee-high RAJESH hose and sequential compression devices in place to his bilateral lower extremities. - Gastrointestinal Gastrointestinal Comment(s): Abdomen is soft, nontender and nondistended. Active bowel sounds to all 4 abdominal quadrants. Tolerating oral intake. Passing flatus. - Genitourinary Genitourinary Comment(s): Voiding clear yellow urine. 650 mL output in the last 8 hours. - Integumentary Integumentary Comment(s): Skin is warm and dry. No clubbing or cyanosis present. Midline sternal incision is clean, dry and approximated. No drainage or redness is present. Right lower extremity EVH sites clean, dry and approximated. No drainage or redness present. Left arm radial harvest sites clean, dry and approximated. No drainage or redness present. Palpable left ulnar pulse. Left hand warm to touch. - Neurologic Neurologic: Present: CNII-XII intact - Musculoskeletal Musculoskeletal: Present: gait normal, generalized weakness, strength equal bilaterally - Psychiatric Psychiatric: Present: A&O x's 3, appropriate affect, intact judgment & insight - Allied health notes Allied health notes reviewed: nursing - Labs CBC & Chem 7: 09/26/18 04:40 09/26/18 04:40 Labs: Abnormal Lab Results - Last 24 Hours (Table) 09/25/18 09/25/18 09/25/18 Range/Units 10:01 11:55 14:07 WBC (3.8-10.6) k/uL RBC (4.30-5.90) m/uL Hgb (13.0-17.5) gm/dL Hct (39.0-53.0) % BUN (9-20) mg/dL Glucose (74-99) mg/dL POC Glucose (mg/dL) 128 H 117 H 154 H (75-99) mg/dL Calcium (8.4-10.2) mg/dL Phosphorus (2.5-4.5) mg/dL Total Protein (6.3-8.2) g/dL Albumin (3.5-5.0) g/dL 09/25/18 09/25/18 09/26/18 Range/Units 16:20 20:14 04:40 WBC (3.8-10.6) k/uL RBC (4.30-5.90) m/uL Hgb (13.0-17.5) gm/dL Hct (39.0-53.0) % BUN 23 H (9-20) mg/dL Glucose 130 H (74-99) mg/dL POC Glucose (mg/dL) 100 H 151 H (75-99) mg/dL Calcium 8.3 L (8.4-10.2) mg/dL Phosphorus 2.2 L (2.5-4.5) mg/dL Total Protein 6.0 L (6.3-8.2) g/dL Albumin 3.3 L (3.5-5.0) g/dL 09/26/18 09/26/18 Range/Units 04:40 07:03 WBC 16.0 H (3.8-10.6) k/uL RBC 3.57 L (4.30-5.90) m/uL Hgb 10.8 L (13.0-17.5) gm/dL Hct 33.4 L (39.0-53.0) % BUN (9-20) mg/dL Glucose (74-99) mg/dL POC Glucose (mg/dL) 140 H (75-99) mg/dL Calcium (8.4-10.2) mg/dL Phosphorus (2.5-4.5) mg/dL Total Protein (6.3-8.2) g/dL Albumin (3.5-5.0) g/dL - Imaging and Cardiology Chest x-ray: report reviewed, image reviewed Assessment and Plan (1) CAD (coronary artery disease) Current Visit: Yes Status: Chronic Code(s): I25.10 - ATHSCL HEART DISEASE OF [place] CORONARY ARTERY W/O ANG PCTRS SNOMED Code(s): 11358164 (2) Diabetes mellitus Current Visit: Yes Status: Chronic Code(s): E11.9 - TYPE 2 DIABETES MELLITUS WITHOUT COMPLICATIONS SNOMED Code(s): 01664704 (3) Family history of early CAD Current Visit: Yes Status: Chronic Code(s): Z82.49 - FAMILY HX OF [place] HEART DIS AND OTH DIS OF [facility] SYS SNOMED Code(s): 994370514 (4) History of coronary artery bypass graft Current Visit: Yes Status: Chronic Code(s): Z95.1 - PRESENCE OF AORTOCORONARY BYPASS GRAFT SNOMED Code(s): 080133001 (5) Hyperlipidemia Current Visit: Yes Status: Chronic Code(s): E78.5 - HYPERLIPIDEMIA, UNSPECIFIED SNOMED Code(s): 99960704 (6) Hypertension Current Visit: Yes Status: Chronic Code(s): I10 - ESSENTIAL (PRIMARY) HYPERTENSION SNOMED Code(s): 98294680 (7) Obesity Current Visit: Yes Status: Chronic Code(s): E66.9 - OBESITY, UNSPECIFIED SNOMED Code(s): 528479940 (8) Obstructive sleep apnea Current Visit: Yes Status: Chronic Code(s): G47.33 - OBSTRUCTIVE SLEEP APNEA (ADULT) (PEDIATRIC) SNOMED Code(s): 07811606 (9) Peripheral artery disease Current Visit: Yes Status: Chronic Code(s): I73.9 - PERIPHERAL VASCULAR DISEASE, UNSPECIFIED SNOMED Code(s): 523281741 (10) Status post splenectomy Current Visit: Yes Status: Chronic Code(s): Z90.81 - ACQUIRED ABSENCE OF SPLEEN SNOMED Code(s): 773008278 (11) Tobacco dependence in remission Current Visit: No Status: Resolved Code(s): F17.201 - NICOTINE DEPENDENCE, UNSPECIFIED, IN REMISSION SNOMED Code(s): 011548663 Plan: 1. Continue aspirin, plavix, Cozaar and beta-david. Will increase beta- david as tolerated. 2. Continue Cardizem for radial artery spasm. Do not discontinue. 3. Wean O2 as tolerated. Encourage incentive spirometry use 10 times every hour while awake. Patient needs aggressive pulmonary hygiene. 4. Increase activity as tolerated. Patient should be up in chair for every meal. Ambulate in hallway. PT/OT/cardiac rehab following. 5. Will monitor daily labs and test x-rays. Electrolyte replacement per protocol. 6. Lasix 20 mg IV 1 now. 7. Insulin management per primary care service. 8. Bronchodilators per pulmonology. 9. Pain control with current medication regimen. Continue Toradol. 10. More recommendations to follow based on patient's clinical course. Time with Patient: Greater than 30
--- NOTE | 2018-09-26 10:04 | P.PN ---
Subjective Progress Note Date: 09/26/18 Principal diagnosis: Status post redo CABG, postop day 3 Status post redo CABG, postoperative day #2. Off pump 5 sequential left radial artery graft to diagonal and LAD reverse saphenous vein graft to obtuse marginal and reverse saphenous graft to posterior lateral branch jump vein graft from posterior lateral graft to PDA Coronary artery disease, history of coronary artery bypass grafting, closed vein grafts and patent JOSEPH to the LAD with disease in the LAD distal to the anastomosis. 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 Patient was reevaluated today on 09/25/2018, he is status post redo CABG, postoperative day #2. Patient is doing well, he is on few liters nasal cannula , denies any specific complaints, chest x-ray showed evidence of mild congestive heart failure, hence one dose of Lasix was given. Minimal bibasilar atelectasis also noted on the chest x-ray, patient is doing poorly with incentive spirometer. CBC showed WBC count of 18.4 basic metabolic profile is normal. 09/26/2018 patient seen again in follow-up in the intensive care unit. His postop day 3 status post redo coronary artery bypass grafting, off pump, 5 vessel CABG. Remains on Airvo, continue 35 L/m over 73% FiO2, his pulse ox is 93%, he is afebrile, A. fib on the monitor, bit hypertensive with a blood pressure 154/99. Patient is on amiodarone drip currently at 0.25 mg per min. Lactated Ringer's at a rate of 20 ML per hour, no other drips. Patient's Cozaar is being restarted by CT surgery, today's chest x-ray has been reviewed by Dr. Vazquez, and shows changes consistent with fluid overload, low lung volumes , central vascular congestion, and bilateral pleural effusions, left greater than the right. he received 20 mg of Lasix this morning per Dr. Solorzano, we recommend additional 20 mg now. [place] has been discontinued, chest tubes and epicardial wires have been discontinued. Patient is voiding. He is in no acute distress, not using accessory muscles of breathing. Lung sounds are positive for diminished breath sounds over left lower base, and some crackles over right disease. Working on his incentive spirometry, his pain is reasonably well controlled. Objective - Vital Signs Vital signs: Vital Signs Temp 97.9 F 09/26/18 08:00 Pulse 90 09/26/18 08:30 Resp 17 09/26/18 08:30 BP 154/99 09/26/18 08:30 Pulse Ox 93 L 09/26/18 08:30 Intake & Output 09/25/18 09/26/18 09/26/18 18:59 06:59 18:59 Intake Total 2043.242 718 473.8 Output Total 853 850 Balance 1190.242 -132 473.8 Intake: IV 309 718 56.5 Amiodarone 450 mg In 198 16.5 Dextrose 5% in Water 250 ml @ 1 MG/MIN 34.53 mls/ hr IV .Q7H31M PRN Rx#: [id number] Dextrose 5% in Water 100 300 ml @ 618 mls/hr IV .Q10M ONE with Amiodarone 150 mg Rx#:[id number] Lactated Ringers 1,000 ml 270 220 40 @ 20 mls/hr IV .Q24H [facility] Rx#:[id number] Pressure Bags 39 Intake, IV Titration 234.242 267.3 Amount Amiodarone 450 mg In 8.3 Dextrose 5% in Water 250 ml @ 0.25 MG/MIN 8.33 mls /hr IV .Q24H [facility] Rx#: [id number] Amiodarone 450 mg In 259 Dextrose 5% in Water 250 ml @ 1 MG/MIN 34.53 mls/ hr IV .Q7H31M PRN Rx#: [id number] Insulin Regular 100 unit 34.242 In Sodium Chloride 0.9% 100 ml @ Per Protocol IV .Q0M [facility] Rx#:[id number] Magnesium Sulfate-D5w Pmx 200 1 gm In Dextrose/Water 1 100ml.bag @ 100 mls/hr IVPB Q1H [facility] Rx#: [id number] Oral 1500 150 Output: Chest Tube Drainage 78 Chest Tube Left Pleural/ 48 Mediastinal Chest Tube Right Pleural/ 30 Mediastinal Urine 575 650 Stool 200 200 Other: Voiding Method Indwelling Catheter Indwelling Catheter # Voids 0 1 ABP, PAP, CO, CI - Last Documented Arterial Blood Pressure 118/58 Pulmonary Artery Pressure 48/21 Cardiac Output 7.5 Cardiac Index 2.9 - Exam Physical Exam: Revealed a 68-year-old white male in no distress. On few liters nasal cannula Head: Atraumatic, normocephalic. HEENT:[Neck is supple.] [No neck masses.] [No thyromegaly.] [No JVD.] Chest: [Diminished breath sounds at the bases, diminished breath sounds at the left base, some crackles on the right Cardiac Exam: [Normal S1 and S2, no S3 gallop, positive pericardial rub. No murmur. Abdomen: [Obese, Soft, nontender, no megaly, no rebound, no guarding, normal bowel sounds.] Extremities: Lower extremities are both are wrapped with Dereck wrapping. Neurological Exam: [No gross focal neurologic deficit.] Psychiatric: Normal mood, affect and mental status examination. - Labs CBC & Chem 7: 09/26/18 04:40 09/26/18 04:40 Labs: Abnormal Lab Results - Last 24 Hours (Table) 09/25/18 09/25/18 09/25/18 Range/Units 10:01 11:55 14:07 WBC (3.8-10.6) k/uL RBC (4.30-5.90) m/uL Hgb (13.0-17.5) gm/dL Hct (39.0-53.0) % BUN (9-20) mg/dL Glucose (74-99) mg/dL POC Glucose (mg/dL) 128 H 117 H 154 H (75-99) mg/dL Calcium (8.4-10.2) mg/dL Phosphorus (2.5-4.5) mg/dL Total Protein (6.3-8.2) g/dL Albumin (3.5-5.0) g/dL 09/25/18 09/25/18 09/26/18 Range/Units 16:20 20:14 04:40 WBC (3.8-10.6) k/uL RBC (4.30-5.90) m/uL Hgb (13.0-17.5) gm/dL Hct (39.0-53.0) % BUN 23 H (9-20) mg/dL Glucose 130 H (74-99) mg/dL POC Glucose (mg/dL) 100 H 151 H (75-99) mg/dL Calcium 8.3 L (8.4-10.2) mg/dL Phosphorus 2.2 L (2.5-4.5) mg/dL Total Protein 6.0 L (6.3-8.2) g/dL Albumin 3.3 L (3.5-5.0) g/dL 09/26/18 09/26/18 Range/Units 04:40 07:03 WBC 16.0 H (3.8-10.6) k/uL RBC 3.57 L (4.30-5.90) m/uL Hgb 10.8 L (13.0-17.5) gm/dL Hct 33.4 L (39.0-53.0) % BUN (9-20) mg/dL Glucose (74-99) mg/dL POC Glucose (mg/dL) 140 H (75-99) mg/dL Calcium (8.4-10.2) mg/dL Phosphorus (2.5-4.5) mg/dL Total Protein (6.3-8.2) g/dL Albumin (3.5-5.0) g/dL Assessment and Plan Plan: 1 status post redo CABG with 5 grafts. Postoperative day #3. 2 postoperative atelectasis and suspect mild congestive heart failure changes, expected postoperatively. 3 postoperative atrial fibrillation, currently on amiodarone drip 4 benign essential hypertension 5 hyperlipidemia 6 type 2 diabetes 7 obesity 8 tobacco dependence in remission 9 obstructive sleep apnea syndrome on CPAP 10 previous splenectomy 11 peripheral vascular disease. Mostly affecting lower extremities. Plan: Continue encouraging deep breathing and coughing, today's chest x-ray has been reviewed by Dr. Mendoza, shows central vascular congestion, bilateral pleural effusions, changes consistent with fluid overload. Patient was given a dose of IV Lasix this morning, we recommend another dose of IV Lasix 20 mg. WEan Fio2. Increase ambulation, we'll try to switch the patient over to 15 L per high flow nasal cannula after diuresis. Daily chest x-rays and labs. We'll continue to monitor I performed a history & physical examination of the patient and discussed their management with my nurse practitioner, Teri Ott. I reviewed the nurse practitioner's note and agree with the documented findings and plan of care. Lung sounds are positive for diminished breath sounds over left lower base, some crackles on the right. The findings and the impression was discussed with the patient. I attest to the documentation by the nurse practitioner. Time with Patient: Greater than 30
--- NOTE | 2018-09-26 10:19 | PN ---
PROGRESS NOTE Mr. De Anda is a gentleman status post redo bypass surgery. He is in sinus rhythm, doing well. Complains of some pain but blood pressure is good. S1-S2 heard normally. Lungs revealed diminished air entry. Abdomen and lower extremity exam unchanged. Plan is to continue current medications. Pain control. Optimize BP control and see how he does. Incentive spirometry and pulmonary toilet advised. Patient is coming along well considering he has had major surgery recently. MMODL / IJN: [id number] / ROSSANA
[2018-09-26] MEDS ORDERED: LOSARTAN 50 MG TAB PO STA (11:02)
[2018-09-26] MEDS: AMIODARONE 450 MG in DEXTROSE 5% IN WATER 250 ML IV SCH ×2 (11:35)
[2018-09-26 12:00] LABS: Glucose,Whole Blood 127 mg/dL (75-99)
[2018-09-26] MEDS: LACTATED RINGERS 1,000 ML IV SCH (12:09)
[2018-09-26 17:54] LABS: Glucose,Whole Blood 134 mg/dL (75-99)
[2018-09-26] MEDS: CLEVIDIPINE BUTYRATE 25 MG in EMPTY BAG 1 BAG IV SCH (18:44)
--- NOTE | 2018-09-26 20:55 | PN ---
PROGRESS NOTE Mr. De Anda is a gentleman who underwent a redo bypass surgery by Dr. Rodríguez. Post procedure he went into atrial fibrillation with a moderately rapid ventricular rate, placed on amiodarone drip. The rate is somewhat slow. I will decrease the dose on the amiodarone drip. He was also on p.o. Cardizem, but we will continue that because patient had a radial graft. Vitals are stable. Heart rate is about 60-80, irregular. S1, S2 heard normally. Short systolic murmur noted. Lungs reveal improved air entry. Abdomen and lower extremity exam unchanged. Plan is to continue lower dose of amiodarone and also his other medications and incentive spirometry and pulmonary toilet and see how he does. MMODL / IJN: [id number] /
[2018-09-26] MEDS: SENNOSIDES-DOCUSATE SODIUM 1 EACH TAB PO SCH (20:58)
[2018-09-26 20:59] LABS: Glucose,Whole Blood 166 mg/dL (75-99)
[2018-09-27] MEDS: KETOROLAC 30 MG/ML 1 ML VIAL IVP SCH ×4 (00:11→20:56)
[2018-09-27] MEDS: HEPARIN SODIUM,PORCINE 5,000 UNIT/ML 1 ML VIAL SQ SCH ×2 (00:16→18:41)
[2018-09-27 05:30] LABS: HCT 31.8 % (39.0-53.0); HGB 10.2 gm/dL (13.0-17.5); MCH 29.7 pg (25.0-35.0); MCHC 32.1 g/dL (31.0-37.0); MCV 92.4 fL (80.0-100.0); Platelet Count 254 k/uL (150-450); RBC 3.45 m/uL (4.30-5.90); RDW 13.5 % (11.5-15.5); WBC 15.6 k/uL (3.8-10.6)
[2018-09-27 05:39] LABS: ALT 24 U/L (21-72); AST 23 U/L (17-59); Alkaline Phosphatase 57 U/L (38-126); Anion Gap 7 mmol/L; Blood Urea Nitrogen 28 mg/dL (9-20); Calcium 8.5 mg/dL (8.4-10.2); Carbon Dioxide 27 mmol/L (22-30); Chloride 104 mmol/L (98-107); Glucose 119 mg/dL (74-99); Phosphorus 2.5 mg/dL (2.5-4.5); Sodium 138 mmol/L (137-145); Total Protein 5.7 g/dL (6.3-8.2)
[2018-09-27] MEDS ORDERED: POTASSIUM PHOSPHATE 10 MMOL in SODIUM CHLORIDE 0.9% 250 ML IV ONE (06:28)
[2018-09-27] MEDS ORDERED: Phosphorus Replacement Protoco 1 EACH MISC MISCELLANE PRN (06:28)
[2018-09-27] MEDS: metFORMIN 500 MG TAB PO SCH ×2 (06:36→17:17)
[2018-09-27] MEDS: PANTOPRAZOLE 40 MG TABLET PO SCH (06:36)
[2018-09-27 07:05] LABS: Glucose,Whole Blood 146 mg/dL (75-99)
[2018-09-27] MEDS: INSULIN ASPART 100 UNIT/ML 1 ML 10 ML VIAL SQ SCH ×4 (07:14→20:55)
[2018-09-27] MEDS: IPRATROPIUM-ALBUTEROL 3 ML NEB INHALATION SCH ×4 (08:00→20:26)
--- NOTE | 2018-09-27 08:11 | XR ---
EXAMINATION TYPE: XR chest 1V portable DATE OF EXAM: 09/27/2018 Comparison: 09/26/2018 Clinical History: 68-year-old male post op CABG Findings: Median sternotomy wires are present. Heart remains enlarged. Low lung volumes with continued small pl eural effusions and bibasilar opacities. Some mild perihilar densities remain with Van B lines as well. Impression: 1. Overall stable exam with low lung volumes and findings suggesting mild pulmonary vascular congesti on. 2. Continued small pleural effusions with adjacent atelectasis and/or consolidation.
[2018-09-27] MEDS ORDERED: FUROSEMIDE 10 MG/ML 4 ML VIAL IV STA (08:24)
[2018-09-27] MEDS: METOPROLOL TARTRATE 25 MG TAB PO SCH ×2 (08:47→21:12)
[2018-09-27] MEDS: amLODIPine 5 MG TAB PO SCH ×2 (08:48→21:12)
[2018-09-27] MEDS: ATORVASTATIN 40 MG TAB PO SCH (08:48)
[2018-09-27] MEDS: AMIODARONE 200 MG TAB PO SCH ×3 (08:48→21:12)
[2018-09-27] MEDS ORDERED: DILTIAZEM ORAL 30 MG TAB PO SCH (09:00)
[2018-09-27] MEDS: ASPIRIN 81 MG PO SCH (09:12)
[2018-09-27] MEDS: APIXABAN 5 MG TAB PO SCH ×2 (09:13→21:14)
--- NOTE | 2018-09-27 09:28 | P.PN ---
Subjective Progress Note Date: 09/27/18 Principal diagnosis: Coronary artery disease, history of coronary artery bypass grafting, closed vein grafts and patent JOSEPH to the LAD with disease in the LAD distal to the anastomosis. 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 POD #4 redo coronary coronary bypass grafting, off-pump 5 specifically sequential left radial artery graft to diagonal and LAD, reverse saphenous vein graft to obtuse marginal, reverse saphenous vein graft to posterior lateral branch, jump vein graft from posterior lateral graft to PDA. Endovascular right greater saphenous vein harvest. Endo radial harvest of the left radial artery. Intraoperative transesophageal echocardiogram by anesthesia. Postoperative atrial fibrillation, unexpected outcome. The patient is currently sitting up in a recliner in no acute distress when rounding with Dr. Damon. Continues to struggle with oxygenation requiring interventional. Patient's effort with incentive spirometry and coughing has gotten better but not significantly. He requires a lot of motivation to get up and move and use his incentive spirometer. He does state pain is better controlled with increasing pain medication. Objective - Vital Signs Vital signs: Vital Signs Temp 98.4 F 09/27/18 04:00 Pulse 88 09/27/18 08:12 Resp 17 09/27/18 07:00 BP 166/99 09/27/18 07:00 Pulse Ox 98 09/27/18 08:03 Intake & Output 09/26/18 09/27/18 09/27/18 18:59 06:59 18:59 Intake Total 3266.8 421.5 0 Output Total 1075 700 Balance 2191.8 -278.5 0 Weight 140.4 kg 140.4 kg Intake: IV 356.5 100 0 Amiodarone 450 mg In 16.5 0 Dextrose 5% in Water 250 ml @ 1 MG/MIN 34.53 mls/ hr IV .Q7H31M PRN Rx#: [id number] Dextrose 5% in Water 100 100 ml @ 618 mls/hr IV .Q10M ONE with Amiodarone 150 mg Rx#:[id number] Lactated Ringers 1,000 ml 240 100 0 @ 20 mls/hr IV .Q24H [facility] Rx#:[id number] Intake, IV Titration 600.3 41.5 Amount Amiodarone 450 mg In 91.3 41.5 Dextrose 5% in Water 250 ml @ 0.25 MG/MIN 8.33 mls /hr IV .Q24H [facility] Rx#: [id number] Amiodarone 450 mg In 259 Dextrose 5% in Water 250 ml @ 1 MG/MIN 34.53 mls/ hr IV .Q7H31M PRN Rx#: [id number] Sodium Glycerophosphate 250 10 mmol In Sodium Chloride 0.9% 250 ml @ 31 .25 mls/hr IV ONCE ONE Rx #:[id number] Oral 2310 280 Output: Urine 1075 500 Stool 200 Other: Voiding Method Indwelling Catheter # Voids 1 1 # Bowel Movements 1 ABP, PAP, CO, CI - Last Documented Arterial Blood Pressure 118/58 Pulmonary Artery Pressure 48/21 Cardiac Output 7.5 Cardiac Index 2.9 - Constitutional General appearance: Present: cooperative, morbidly obese, no acute distress - Respiratory Details: Lungs sounds diminished bilaterally. Respirations even, nonlabored. Currently on Airvo with oxygen saturation 96%. Able to achieve 1000 mL on his incentive spirometry. Weak cough. - Cardiovascular Details: S1, S2 present. Irregular rate and rhythm, atrial fibrillation on telemetry. Sternum stable. Palpable peripheral pulses bilaterally. Right lower extremity with trace edema. No calf pain or tenderness noted. Antiembolism stockings, SCDs present. Heart hugger in place with patient demonstrating appropriate use. - Gastrointestinal Gastrointestinal Comment(s): Abdomen soft, nontender, nondistended. Active bowel sounds present 4 quadrants. Tolerating diet. Positive bowel movement. - Genitourinary Genitourinary Comment(s): Continues to void clear, yellow urine. - Integumentary Integumentary Comment(s): Skin is warm and dry with evidence of good perfusion. Anterior chest incision well approximated and covered with dry intact dressing. Right lower extremity EVH site well approximated. Left radial artery harvest site well approximated, no numbness or tingling in the extremity, full mobility of the left upper extremity. - Neurologic Neurologic: Present: CNII-XII intact - Musculoskeletal Musculoskeletal: Present: gait normal, strength equal bilaterally - Psychiatric Psychiatric: Present: A&O x's 3, appropriate affect, intact judgment & insight - Allied health notes Allied health notes reviewed: nursing - Labs CBC & Chem 7: 09/27/18 04:37 09/27/18 04:37 Labs: Abnormal Lab Results - Last 24 Hours (Table) 09/26/18 09/26/18 09/26/18 Range/Units 11:52 17:41 20:48 WBC (3.8-10.6) k/uL RBC (4.30-5.90) m/uL Hgb (13.0-17.5) gm/dL Hct (39.0-53.0) % BUN (9-20) mg/dL Glucose (74-99) mg/dL POC Glucose (mg/dL) 127 H 134 H 166 H (75-99) mg/dL Total Protein (6.3-8.2) g/dL Albumin (3.5-5.0) g/dL 09/27/18 09/27/18 09/27/18 Range/Units 04:37 04:37 06:53 WBC 15.6 H (3.8-10.6) k/uL RBC 3.45 L (4.30-5.90) m/uL Hgb 10.2 L (13.0-17.5) gm/dL Hct 31.8 L (39.0-53.0) % BUN 28 H (9-20) mg/dL Glucose 119 H (74-99) mg/dL POC Glucose (mg/dL) 146 H (75-99) mg/dL Total Protein 5.7 L (6.3-8.2) g/dL Albumin 3.0 L (3.5-5.0) g/dL - Imaging and Cardiology Chest x-ray: report reviewed, image reviewed Assessment and Plan (1) Hypertension Current Visit: Yes Status: Chronic Code(s): I10 - ESSENTIAL (PRIMARY) HYPERTENSION SNOMED Code(s): 95667032 (2) Hyperlipidemia Current Visit: Yes Status: Chronic Code(s): E78.5 - HYPERLIPIDEMIA, UNSPECIFIED SNOMED Code(s): 57050578 (3) Family history of early CAD Current Visit: Yes Status: Chronic Code(s): Z82.49 - FAMILY HX OF ISCHEM HEART DIS AND OTH DIS OF THE CIRC SYS SNOMED Code(s): 018589633 (4) History of coronary artery bypass graft Current Visit: Yes Status: Chronic Code(s): Z95.1 - PRESENCE OF AORTOCORONARY BYPASS GRAFT SNOMED Code(s): 576115681 (5) CAD (coronary artery disease) Current Visit: Yes Status: Chronic Code(s): I25.10 - ATHSCL HEART DISEASE OF [place] CORONARY ARTERY W/O ANG PCTRS SNOMED Code(s): 39945563 (6) Diabetes mellitus Current Visit: Yes Status: Chronic Code(s): E11.9 - TYPE 2 DIABETES MELLITUS WITHOUT COMPLICATIONS SNOMED Code(s): 97420460 (7) Obesity Current Visit: Yes Status: Chronic Code(s): E66.9 - OBESITY, UNSPECIFIED SNOMED Code(s): 780181390 (8) Tobacco dependence in remission Current Visit: No Status: Resolved Code(s): F17.201 - NICOTINE DEPENDENCE, UNSPECIFIED, IN REMISSION SNOMED Code(s): 953681197 (9) Obstructive sleep apnea Current Visit: Yes Status: Chronic Code(s): G47.33 - OBSTRUCTIVE SLEEP APNEA (ADULT) (PEDIATRIC) SNOMED Code(s): 12990902 (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 Continue low dose aspirin, plavix, Cozaar, beta-david therapy. Will increase beta-david therapy as tolerated, increased to 75 mg twice daily. 2. Norvasc added twice daily by cardiology for better blood pressure control. Will discontinue oral Cardizem. 3. Oral amiodarone added for A. fib. Eliquis to be started today for anticoagulation. 4. Will give Lasix 40 mg IV push 1. 5. Wean O2 as tolerated. Encourage incentive spirometry use 10 times every hour while awake. Patient needs aggressive pulmonary hygiene. 6. Increase activity as tolerated. Ambulate in hallway. PT/OT/cardiac rehab following. 7. Will monitor daily labs and x-rays. Electrolyte replacement per protocol. 8. Insulin management per primary care service. 9. Bronchodilators per pulmonology. 10. Pain control with current medication regimen. 11. GI prophylaxis with Protonix. DVT prophylaxis with SCDs. Subcu heparin discontinued as Eliquis will be started today. 12. More recommendations to follow. Time with Patient: Greater than 30
--- NOTE | 2018-09-27 09:56 | P.PN ---
Subjective Progress Note Date: 09/27/18 Principal diagnosis: Status post redo CABG, postop day 3 Status post redo CABG, postoperative day #2. Off pump 5 sequential left radial artery graft to diagonal and LAD reverse saphenous vein graft to obtuse marginal and reverse saphenous graft to posterior lateral branch jump vein graft from posterior lateral graft to PDA Coronary artery disease, history of coronary artery bypass grafting, closed vein grafts and patent JOSEPH to the LAD with disease in the LAD distal to the anastomosis. 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 Patient was reevaluated today on 09/25/2018, he is status post redo CABG, postoperative day #2. Patient is doing well, he is on few liters nasal cannula , denies any specific complaints, chest x-ray showed evidence of mild congestive heart failure, hence one dose of Lasix was given. Minimal bibasilar atelectasis also noted on the chest x-ray, patient is doing poorly with incentive spirometer. CBC showed WBC count of 18.4 basic metabolic profile is normal. 09/26/2018 patient seen again in follow-up in the intensive care unit. His postop day 3 status post redo coronary artery bypass grafting, off pump, 5 vessel CABG. Remains on Airvo, continue 35 L/m over 73% FiO2, his pulse ox is 93%, he is afebrile, A. fib on the monitor, bit hypertensive with a blood pressure 154/99. Patient is on amiodarone drip currently at 0.25 mg per min. Lactated Ringer's at a rate of 20 ML per hour, no other drips. Patient's Cozaar is being restarted by CT surgery, today's chest x-ray has been reviewed by Dr. Vazquez, and shows changes consistent with fluid overload, low lung volumes , central vascular congestion, and bilateral pleural effusions, left greater than the right. he received 20 mg of Lasix this morning per Dr. Solorzano, we recommend additional 20 mg now. [place] has been discontinued, chest tubes and epicardial wires have been discontinued. Patient is voiding. He is in no acute distress, not using accessory muscles of breathing. Lung sounds are positive for diminished breath sounds over left lower base, and some crackles over right disease. Working on his incentive spirometry, his pain is reasonably well controlled. On 09/27/2018 patient seen in follow-up in the intensive care unit, his oxygen requirement has significantly decreased, we were able to wean him off the Airvo and he is currently on 10 L per high flow nasal cannula. Vital signs are stable. Remains in A. fib on the monitor, with a rate of 88 BPM, hemodynamically stable. This is postop day 4 status post 5 vessel coronary artery bypass grafting. His chest x-ray has been reviewed by Dr. Akers, and shows overall stable exam with low lung volumes and findings suggesting mild pulmonary vascular congestion and small pleural effusions with adjacent atelectasis. Patient will receive another dose of IV Lasix [address] surgery. Patient's IV fluids have been hep-locked, patient is working on his incentive spirometer, he is able to achieve 1000 and melena today. Lung sounds reveal diminished breath sounds over left lower base, and some crackles over right lower base. Today's labs have been reviewed, white blood cell count is trending down, down to 15.6 today, hemoglobin is 10.2, lites are within normal limits, BUN is 28 and creatinine 0.71. Objective - Vital Signs Vital signs: Vital Signs Temp 98.4 F 09/27/18 04:00 Pulse 88 09/27/18 08:12 Resp 17 09/27/18 07:00 BP 166/99 09/27/18 07:00 Pulse Ox 98 09/27/18 08:03 Intake & Output 09/26/18 09/27/18 09/27/18 18:59 06:59 18:59 Intake Total 3266.8 421.5 0 Output Total 1075 700 Balance 2191.8 -278.5 0 Weight 140.4 kg 140.4 kg Intake: IV 356.5 100 0 Amiodarone 450 mg In 16.5 0 Dextrose 5% in Water 250 ml @ 1 MG/MIN 34.53 mls/ hr IV .Q7H31M PRN Rx#: [id number] Dextrose 5% in Water 100 100 ml @ 618 mls/hr IV .Q10M ONE with Amiodarone 150 mg Rx#:[id number] Lactated Ringers 1,000 ml 240 100 0 @ 20 mls/hr IV .Q24H [facility] Rx#:[id number] Intake, IV Titration 600.3 41.5 Amount Amiodarone 450 mg In 91.3 41.5 Dextrose 5% in Water 250 ml @ 0.25 MG/MIN 8.33 mls /hr IV .Q24H [facility] Rx#: [id number] Amiodarone 450 mg In 259 Dextrose 5% in Water 250 ml @ 1 MG/MIN 34.53 mls/ hr IV .Q7H31M PRN Rx#: [id number] Sodium Glycerophosphate 250 10 mmol In Sodium Chloride 0.9% 250 ml @ 31 .25 mls/hr IV ONCE ONE Rx #:[id number] Oral 2310 280 Output: Urine 1075 500 Stool 200 Other: Voiding Method Indwelling Catheter # Voids 1 1 # Bowel Movements 1 ABP, PAP, CO, CI - Last Documented Arterial Blood Pressure 118/58 Pulmonary Artery Pressure 48/21 Cardiac Output 7.5 Cardiac Index 2.9 - Exam Physical Exam: Revealed a 68-year-old white male in no distress. On few liters nasal cannula Head: Atraumatic, normocephalic. HEENT:[Neck is supple.] [No neck masses.] [No thyromegaly.] [No JVD.] Chest: [Diminished breath sounds at the bases, diminished breath sounds at the left base, some crackles on the right Cardiac Exam: [Normal S1 and S2, no S3 gallop, positive pericardial rub. No murmur. Abdomen: [Obese, Soft, nontender, no megaly, no rebound, no guarding, normal bowel sounds.] Extremities: Lower extremities are both are wrapped with Dereck wrapping. Neurological Exam: [No gross focal neurologic deficit.] Psychiatric: Normal mood, affect and mental status examination. - Labs CBC & Chem 7: 09/27/18 04:37 09/27/18 04:37 Labs: Abnormal Lab Results - Last 24 Hours (Table) 09/26/18 09/26/18 09/26/18 Range/Units 11:52 17:41 20:48 WBC (3.8-10.6) k/uL RBC (4.30-5.90) m/uL Hgb (13.0-17.5) gm/dL Hct (39.0-53.0) % BUN (9-20) mg/dL Glucose (74-99) mg/dL POC Glucose (mg/dL) 127 H 134 H 166 H (75-99) mg/dL Total Protein (6.3-8.2) g/dL Albumin (3.5-5.0) g/dL 09/27/18 09/27/18 09/27/18 Range/Units 04:37 04:37 06:53 WBC 15.6 H (3.8-10.6) k/uL RBC 3.45 L (4.30-5.90) m/uL Hgb 10.2 L (13.0-17.5) gm/dL Hct 31.8 L (39.0-53.0) % BUN 28 H (9-20) mg/dL Glucose 119 H (74-99) mg/dL POC Glucose (mg/dL) 146 H (75-99) mg/dL Total Protein 5.7 L (6.3-8.2) g/dL Albumin 3.0 L (3.5-5.0) g/dL Assessment and Plan Plan: 1 status post redo CABG with 5 grafts. Postoperative day #4. 2 postoperative atelectasis and suspect mild congestive heart failure changes, expected postoperatively. 3 postoperative atrial fibrillation, currently on amiodarone drip 4 benign essential hypertension 5 hyperlipidemia 6 type 2 diabetes 7 obesity 8 tobacco dependence in remission 9 obstructive sleep apnea syndrome on CPAP 10 previous splenectomy 11 peripheral vascular disease. Mostly affecting lower extremities. Plan: Today's chest x-ray has been reviewed by Dr. Vazquez, still shows changes consistent with fluid overload, and mild congestive heart failure. Patient will be given another dose of IV Lasix per CT surgery, continue encouraging and coughing, incentive spirometry use, currently on 10 L per high flow nasal cannula. Remains in A. fib, with a controlled rate. We'll continue monitoring patient's in the ICU. I performed a history & physical examination of the patient and discussed their management with my nurse practitioner, Teri Ott. I reviewed the nurse practitioner's note and agree with the documented findings and plan of care. Lung sounds are positive for diminished breath sounds over left lower base, some crackles on the right. The findings and the impression was discussed with the patient. I attest to the documentation by the nurse practitioner. Time with Patient: Greater than 30
--- NOTE | 2018-09-27 10:17 | PN ---
PROGRESS NOTE Mr. De Anda is in atrial fib, rate is fairly well-controlled. His blood pressure is somewhat elevated. He is status post redo bypass surgery. I am recommending that we put him on oral amiodarone 200 mg t.i.d. and also amlodipine 5 mg b.i.d. for blood pressure control and this will serve as a vasodilators for his radial artery graft. We will discontinue Cardizem and continue the beta david. S1-S2 heard normally with irregular rhythm, short systolic murmur. Lungs reveal improved entry abdomen looks exam unchanged. Plan is to make the above medication changes, incentive spirometry and pulmonary toilet and then based on clinical course, make further recommendations. Thank you very much for the consult. MMFAYL / IJN: [id number] /
[2018-09-27] MEDS: CLOPIDOGREL 75 MG TAB PO SCH (10:48)
--- NOTE | 2018-09-27 11:12 | P.PN ---
Subjective Progress Note Date: 09/26/18 This is a 68-year-old gentleman patient of dr Henderson and Dr. Peters. he has signifcant CAD with prior cabg over [address] stoddard. he comes in for scheduled redo of CABG for tripple vessel disease as he had exertional dyspnea, patient had previous stress test showing large reversible stress induce ischemia and underwent cardiac catheterization, and he was found to have patent JOSEPH to LAD, tight stenosis in the LAD just beyond the anastomosis, the [place] coronary shows complete occlusion of the LAD prior to the JOSEPH anastomosis there is a vein graft to diagonal that is still patent, however there was no flow in the diagonal beyond the anastomosis. Retrograde flow in the very diseased diagonal coronary artery up into a small segment of the LAD that is distal to the complete occlusion and proximal to the L MEHDI anastomosis. The [place] right coronary artery was completely occluded , the vein graft to the right coronary artery system and there were 2 both completely occluded. Echocardiogram showed good ejection fraction of 50%. he underwent aOn 2017, redo CABG was done, postoperatively heas seen in the icu and is mangaed by Dr Canchola the patient was on mechanical ventilation overnight, and around the 9:00 this morning, the patient was eventually extubated. When I saw the patient this morning, he was on nasal cannula, and in no distress. Chest x-ray showed postoperative changes, and minimal bibasilar atelectasis with small bilateral effusions. He is currently comfortable and hungry and is beeing started on full liquid diet. And his O2 saturation was 94% on 3 L nasal cannula patient denied any chest pain, no shortness of breath, no wheezing, no neurologic or abdominal symtoms no melena, no hematemesis. no prior history of GI bleed in past, denies history of asthma or pneumothorax or prior venous thromboembolism. 09/25: patient currently is in ICU. He is doing well without any angina pain or dyspnea, pt has rib pain left [place] where his the bar on chest harness rest in his chest. chest tube diana removed today. no hematoma formation on chest wall insulin drip running with current 8 hour requirements of about 27 units today patient no receptive on using basal bolus regimen for dm control, aic 6.5. will resume metformin 1 gm bid. insulin drip will be discontinued around 8 pm today 09/26: Patient is on nasal airflow. He states he is using incentive spirometry 10 times every hour. He states he walked in the hallway 2 times this morning. Physical therapy is recommended inpatient rehab or home with homecare. He did receive 1 dose of IV Lasix this morning. He is off the insulin drip. Blood sugars are running between 93 and 155. Discharge plan is home with [facility]. Review Of Systems: Constitutional: No fever, no chills, no night sweats. No weight change. No weakness, fatigue or lethargy. No daytime sleepiness. EENT: No headache. No blurred vision or double vision, no loss of vision. No loss of Hearing, no ringing in the ears, no dizziness. No nasal drainage or congestion. No epistaxis. No sore throat. Lungs: No shortness of breath, cough, no sputum production. No wheezing. Cardiovascular: No chest pain, no lower extremity edema. No palpitations. No paroxysmal nocturnal dyspnea. No orthopnea. No lightheadedness or dizziness. No syncopal episodes. Abdominal: No abdominal pain. No nausea, vomiting. No diarrhea. No constipation. No bloody or tarry stools.. No loss of appetite. Genitourinary: No dysuria, increased frequency, urgency. No urinary retention. Musculoskeletal: No myalgias. No muscle weakness, no gait dysfunction, no frequent falls. No back pain. No neck pain. Integumentary: No wounds, no lesions. No rash or pruritus. No unusual bruising. No change in hair or nails. Neurologic: No aphasia. No facial droop. No change in mentation. No head injury. No headache. No paralysis. No paresthesia. Psychiatric: No depression. No anxiety. No mood swings. Endocrine: No abnormal blood sugars. No weight change. No excessive sweating or thirst. No cold intolerance. No weight change. Objective - Vital Signs Vital signs: Vital Signs Temp 97.9 F 09/26/18 08:00 Pulse 96 09/26/18 15:00 Resp 24 09/26/18 15:00 BP 124/81 09/26/18 15:00 Pulse Ox 93 L 09/26/18 15:00 Intake & Output 09/25/18 09/26/18 09/26/18 18:59 06:59 18:59 Intake Total 2043.550 648 4725.3 Output Total 853 850 800 Balance 1190.242 -132 285.3 Weight 140.4 kg Intake: IV 309 718 156.5 Amiodarone 450 mg In 198 16.5 Dextrose 5% in Water 250 ml @ 1 MG/MIN 34.53 mls/ hr IV .Q7H31M PRN Rx#: [id number] Dextrose 5% in Water 100 300 ml @ 618 mls/hr IV .Q10M ONE with Amiodarone 150 mg Rx#:[id number] Lactated Ringers 1,000 ml 270 220 140 @ 20 mls/hr IV .Q24H [facility] Rx#:[id number] Pressure Bags 39 Intake, IV Titration 234.242 558.8 Amount Amiodarone 450 mg In 49.8 Dextrose 5% in Water 250 ml @ 0.25 MG/MIN 8.33 mls /hr IV .Q24H [facility] Rx#: [id number] Amiodarone 450 mg In 259 Dextrose 5% in Water 250 ml @ 1 MG/MIN 34.53 mls/ hr IV .Q7H31M PRN Rx#: [id number] Insulin Regular 100 unit 34.242 In Sodium Chloride 0.9% 100 ml @ Per Protocol IV .Q0M [facility] Rx#:[id number] Magnesium Sulfate-D5w Pmx 200 1 gm In Dextrose/Water 1 100ml.bag @ 100 mls/hr IVPB Q1H [facility] Rx#: [id number] Sodium Glycerophosphate 250 10 mmol In Sodium Chloride 0.9% 250 ml @ 31 .25 mls/hr IV ONCE ONE Rx #:[id number] Oral 1500 370 Output: Chest Tube Drainage 78 Chest Tube Left Pleural/ 48 Mediastinal Chest Tube Right Pleural/ 30 Mediastinal Urine 575 650 800 Stool 200 200 Other: Voiding Method Indwelling Catheter Indwelling Catheter # Voids 0 1 ABP, PAP, CO, CI - Last Documented Arterial Blood Pressure 118/58 Pulmonary Artery Pressure 48/21 Cardiac Output 7.5 Cardiac Index 2.9 - Exam General appearance: Present: cooperative, no acute distress, obese - EENT Eyes: Present: anicteric sclerae, EOMI, dentition normal, normal appearance ENT: Present: hard of hearing, NA/AT, normal oropharynx - Neck Neck: Present: normal ROM - Respiratory Respiratory: bilateral: CTA, negative: diminished, dullness, rales, rhonchi - Cardiovascular Rhythm: regular Heart sounds: normal: S1, S2 Abnormal Heart Sounds: Absent: systolic murmur, diastolic murmur, rub, S3 Gallop , S4 Gallop, click, other - Gastrointestinal General gastrointestinal: Present: normal bowel sounds, soft - Integumentary Integumentary: Present: decreased turgor, normal - Neurologic Neurologic: Present: CNII-XII intact - Musculoskeletal Musculoskeletal: Present: gait normal, strength equal bilaterally - Labs CBC & Chem 7: 09/27/18 04:37 09/27/18 04:37 Labs: Abnormal Lab Results - Last 24 Hours (Table) 09/25/18 09/25/18 09/26/18 Range/Units 16:20 20:14 04:40 WBC (3.8-10.6) k/uL RBC (4.30-5.90) m/uL Hgb (13.0-17.5) gm/dL Hct (39.0-53.0) % BUN 23 H (9-20) mg/dL Glucose 130 H (74-99) mg/dL POC Glucose (mg/dL) 100 H 151 H (75-99) mg/dL Calcium 8.3 L (8.4-10.2) mg/dL Phosphorus 2.2 L (2.5-4.5) mg/dL Total Protein 6.0 L (6.3-8.2) g/dL Albumin 3.3 L (3.5-5.0) g/dL 09/26/18 09/26/18 09/26/18 Range/Units 04:40 07:03 11:52 WBC 16.0 H (3.8-10.6) k/uL RBC 3.57 L (4.30-5.90) m/uL Hgb 10.8 L (13.0-17.5) gm/dL Hct 33.4 L (39.0-53.0) % BUN (9-20) mg/dL Glucose (74-99) mg/dL POC Glucose (mg/dL) 140 H 127 H (75-99) mg/dL Calcium (8.4-10.2) mg/dL Phosphorus (2.5-4.5) mg/dL Total Protein (6.3-8.2) g/dL Albumin (3.5-5.0) g/dL Assessment and Plan Plan: 1. Coronary artery disease, history of coronary artery bypass grafting, closed vein grafts and patent JOSEPH to the LAD with disease in the LAD distal to the anastomosis s/p Redo coronary CABG 5 specifically sequential left radial artery graft to diagonal and LAD, saphenous vein graft to obtuse marginal, saphenous vein graft to posterior lateral branch, jump vein graft from posterior lateral graft to PDA. Endovascular right greater saphenous vein harvest. Endo radial harvest of the left. performed on 09/23/[address] Rodríguez. Continue current plan per cardiothoracic surgery, patient is followed by pulmonary medicine. 2. Diabetes mellitus 2 with hyperglycemia and complication, off insulin drip , transitioned to oral metformin 1 gm bid. Hemoglobin A1c 6.5 3. hypertensive cardiovascular disease, currently on amiodarone 200 mg 3 times daily, Norvasc 5 mg twice daily, losartan 100 mg daily, Lopressor 75 mg twice daily. 4. OSAS on cpap machine 5. hyperlipidemia on lipitor 80 6. prior hx of splenectomy 7. 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 dvt prophylaxis heparin sq 9, GI prophylaxis Discharge plan: Home with [facility] Impression and plan of care have been directed as dictated by the signing physician. Tiff Mclean nurse practitioner acting as scribe for signing physician.
[2018-09-27] MEDS: LOSARTAN 50 MG TAB PO SCH (11:16)
[2018-09-27 12:14] LABS: Glucose,Whole Blood 117 mg/dL (75-99)
--- NOTE | 2018-09-27 15:22 | P.PN ---
Subjective Progress Note Date: 09/27/18 This is a 68-year-old gentleman patient of dr Henderson and Dr. Peters. he has signifcant CAD with prior cabg over [address] stoddard. he comes in for scheduled redo of CABG for tripple vessel disease as he had exertional dyspnea, patient had previous stress test showing large reversible stress induce ischemia and underwent cardiac catheterization, and he was found to have patent JOSEPH to LAD, tight stenosis in the LAD just beyond the anastomosis, the [place] coronary shows complete occlusion of the LAD prior to the JOSEPH anastomosis there is a vein graft to diagonal that is still patent, however there was no flow in the diagonal beyond the anastomosis. Retrograde flow in the very diseased diagonal coronary artery up into a small segment of the LAD that is distal to the complete occlusion and proximal to the L MEHDI anastomosis. The [place] right coronary artery was completely occluded , the vein graft to the right coronary artery system and there were 2 both completely occluded. Echocardiogram showed good ejection fraction of 50%. he underwent aOn 2017, redo CABG was done, postoperatively heas seen in the icu and is mangaed by Dr Canchola the patient was on mechanical ventilation overnight, and around the 9:00 this morning, the patient was eventually extubated. When I saw the patient this morning, he was on nasal cannula, and in no distress. Chest x-ray showed postoperative changes, and minimal bibasilar atelectasis with small bilateral effusions. He is currently comfortable and hungry and is beeing started on full liquid diet. And his O2 saturation was 94% on 3 L nasal cannula patient denied any chest pain, no shortness of breath, no wheezing, no neurologic or abdominal symtoms no melena, no hematemesis. no prior history of GI bleed in past, denies history of asthma or pneumothorax or prior venous thromboembolism. 09/25: patient currently is in ICU. He is doing well without any angina pain or dyspnea, pt has rib pain left [place] where his the bar on chest harness rest in his chest. chest tube diana removed today. no hematoma formation on chest wall insulin drip running with current 8 hour requirements of about 27 units today patient no receptive on using basal bolus regimen for dm control, aic 6.5. will resume metformin 1 gm bid. insulin drip will be discontinued around 8 pm today 09/26: Patient is on nasal airflow. He states he is using incentive spirometry 10 times every hour. He states he walked in the hallway 2 times this morning. Physical therapy is recommended inpatient rehab or home with homecare. He did receive 1 dose of IV Lasix this morning. He is off the insulin drip. Blood sugars are running between 93 and 155. Discharge plan is home with [facility]. 09/27: Patient remains in the intensive care unit. He is currently on nasal cannula at 10 L. his nurse states that he required 15 L to maintain his pulse ox with ambulation today. Plan is to wean him down on oxygen. All chest tubes , [place], cortisone are out. Patient was given Lasix 40 mg this morning and has been diuresing well. Patient states he has had trouble sleeping and melatonin added. Review Of Systems: Constitutional: No fever, no chills, no night sweats. No weight change. No weakness, fatigue or lethargy. EENT: No headache. No blurred vision or double vision, no loss of vision. No loss of Hearing, no ringing in the ears, no dizziness. No nasal drainage or congestion. No epistaxis. No sore throat. Lungs: Reports shortness of breath, cough, no sputum production. No wheezing. Cardiovascular: No chest pain, no lower extremity edema. No palpitations. No paroxysmal nocturnal dyspnea. No orthopnea. No lightheadedness or dizziness. No syncopal episodes. Abdominal: No abdominal pain. No nausea, vomiting. No diarrhea. No constipation. No bloody or tarry stools.. No loss of appetite. Genitourinary: No dysuria, increased frequency, urgency. No urinary retention. Musculoskeletal: No myalgias. No muscle weakness, no gait dysfunction, no frequent falls. No back pain. No neck pain. Integumentary: No wounds, no lesions. No rash or pruritus. No unusual bruising. No change in hair or nails. Neurologic: No aphasia. No facial droop. No change in mentation. No head injury. No headache. No paralysis. No paresthesia. Psychiatric: No depression. No anxiety. No mood swings. Reports insomnia Endocrine: reports abnormal blood sugars. No weight change. No excessive sweating or thirst. Objective - Vital Signs Vital signs: Vital Signs Temp 98.4 F 09/27/18 04:00 Pulse 101 H 09/27/18 10:00 Resp 26 H 09/27/18 10:00 BP 145/98 09/27/18 10:00 Pulse Ox 92 L 09/27/18 10:00 Intake & Output 09/26/18 09/27/18 09/27/18 18:59 06:59 18:59 Intake Total 3266.8 421.5 550 Output Total 1075 700 Balance 2191.8 -278.5 550 Weight 140.4 kg 140.4 kg Intake: IV 356.5 100 0 Amiodarone 450 mg In 16.5 0 Dextrose 5% in Water 250 ml @ 1 MG/MIN 34.53 mls/ hr IV .Q7H31M PRN Rx#: [id number] Dextrose 5% in Water 100 100 ml @ 618 mls/hr IV .Q10M ONE with Amiodarone 150 mg Rx#:[id number] Lactated Ringers 1,000 ml 240 100 0 @ 20 mls/hr IV .Q24H [facility] Rx#:[id number] Intake, IV Titration 600.3 41.5 250 Amount Amiodarone 450 mg In 91.3 41.5 Dextrose 5% in Water 250 ml @ 0.25 MG/MIN 8.33 mls /hr IV .Q24H [facility] Rx#: [id number] Amiodarone 450 mg In 259 Dextrose 5% in Water 250 ml @ 1 MG/MIN 34.53 mls/ hr IV .Q7H31M PRN Rx#: [id number] Potassium Phosphate 10 250 mmol In Sodium Chloride 0 .9% 250 ml @ 125 mls/hr IV ONCE ONE Rx#:[id number] Sodium Glycerophosphate 250 10 mmol In Sodium Chloride 0.9% 250 ml @ 31 .25 mls/hr IV ONCE ONE Rx #:[id number] Oral 2310 280 300 Output: Urine 1075 500 Stool 200 Other: Voiding Method Indwelling Catheter Toilet # Voids 1 1 2 # Bowel Movements 1 ABP, PAP, CO, CI - Last Documented Arterial Blood Pressure 118/58 Pulmonary Artery Pressure 48/21 Cardiac Output 7.5 Cardiac Index 2.9 - Exam General appearance: Present: cooperative, no acute distress, obese, appears comfortable in recliner - EENT Eyes: Present: anicteric sclerae, EOMI, dentition normal, normal appearance ENT: Present: hard of hearing, NA/AT, normal oropharynx - Neck Neck: Present: normal ROM - Respiratory Respiratory: bilateral: CTA, negative: diminished, dullness, rales, rhonchi, no accessory muscle usage - Cardiovascular Rhythm: regular Heart sounds: normal: S1, S2 Abnormal Heart Sounds: Absent: systolic murmur, diastolic murmur, rub, S3 Gallop , S4 Gallop, click, other - Gastrointestinal General gastrointestinal: Present: normal bowel sounds, soft - Integumentary Integumentary: Present: decreased turgor, normal - Neurologic Neurologic: Present: CNII-XII intact - Musculoskeletal Musculoskeletal: Present: gait normal, strength equal bilaterally - Labs CBC & Chem 7: 09/27/18 04:37 09/27/18 04:37 Labs: Abnormal Lab Results - Last 24 Hours (Table) 09/26/18 09/26/18 09/26/18 Range/Units 11:52 17:41 20:48 WBC (3.8-10.6) k/uL RBC (4.30-5.90) m/uL Hgb (13.0-17.5) gm/dL Hct (39.0-53.0) % BUN (9-20) mg/dL Glucose (74-99) mg/dL POC Glucose (mg/dL) 127 H 134 H 166 H (75-99) mg/dL Total Protein (6.3-8.2) g/dL Albumin (3.5-5.0) g/dL 09/27/18 09/27/18 09/27/18 Range/Units 04:37 04:37 06:53 WBC 15.6 H (3.8-10.6) k/uL RBC 3.45 L (4.30-5.90) m/uL Hgb 10.2 L (13.0-17.5) gm/dL Hct 31.8 L (39.0-53.0) % BUN 28 H (9-20) mg/dL Glucose 119 H (74-99) mg/dL POC Glucose (mg/dL) 146 H (75-99) mg/dL Total Protein 5.7 L (6.3-8.2) g/dL Albumin 3.0 L (3.5-5.0) g/dL Assessment and Plan Plan: 1. Coronary artery disease, history of coronary artery bypass grafting, closed vein grafts and patent JOSEPH to the LAD with disease in the LAD distal to the anastomosis s/p Redo coronary CABG 5 specifically sequential left radial artery graft to diagonal and LAD, saphenous vein graft to obtuse marginal, saphenous vein graft to posterior lateral branch, jump vein graft from posterior lateral graft to PDA. Endovascular right greater saphenous vein harvest. Endo radial harvest of the left. performed on 09/23/[address] Rodríguez. Continue current plan per cardiothoracic surgery, patient is followed by pulmonary medicine. 2. Diabetes mellitus 2 with hyperglycemia and complication, off insulin drip , transitioned to oral metformin 1 gm bid. Hemoglobin A1c 6.5 3. hypertensive cardiovascular disease, currently on amiodarone 200 mg 3 times daily, Norvasc 5 mg twice daily, losartan 100 mg daily, Lopressor 75 mg twice daily. 4. ZEFERINO on cpap machine 5. hyperlipidemia on lipitor 80 6. prior hx of splenectomy 7. 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 dvt prophylaxis heparin sq 9, GI prophylaxis Discharge plan: Home with [facility] Impression and plan of care have been directed as dictated by the signing physician. Tiff Mclean nurse practitioner acting as scribe for signing physician.
[2018-09-27 17:04] LABS: Glucose,Whole Blood 143 mg/dL (75-99)
[2018-09-27] MEDS: AMIODARONE 450 MG in DEXTROSE 5% IN WATER 250 ML IV SCH ×2 (18:14)
[2018-09-27 21:06] LABS: Glucose,Whole Blood 124 mg/dL (75-99)
[2018-09-27] MEDS: SENNOSIDES-DOCUSATE SODIUM 1 EACH TAB PO SCH (21:13)
[2018-09-27] MEDS: MELATONIN 3 MG TABLET PO SCH (21:14)
[2018-09-28] MEDS: KETOROLAC 30 MG/ML 1 ML VIAL IVP SCH ×4 (00:14→17:25)
[2018-09-28] MEDS: IPRATROPIUM-ALBUTEROL 3 ML NEB INHALATION PRN ×2 (02:37→23:57)
[2018-09-28 04:57] LABS: HCT 30.8 % (39.0-53.0); HGB 9.9 gm/dL (13.0-17.5); MCH 29.2 pg (25.0-35.0); MCV 91.1 fL (80.0-100.0); Mean Platelet Volume 7.1; Platelet Count 338 k/uL (150-450); RBC 3.38 m/uL (4.30-5.90); RDW 13.5 % (11.5-15.5); WBC 14.2 k/uL (3.8-10.6)
[2018-09-28 05:18] LABS: ALT 26 U/L (21-72); AST 23 U/L (17-59); Albumin 2.8 g/dL (3.5-5.0); Alkaline Phosphatase 61 U/L (38-126); Anion Gap 8 mmol/L; Blood Urea Nitrogen 28 mg/dL (9-20); Calcium 8.4 mg/dL (8.4-10.2); Carbon Dioxide 27 mmol/L (22-30); Chloride 105 mmol/L (98-107); Glucose 130 mg/dL (74-99); Magnesium 1.9 mg/dL (1.6-2.3); Phosphorus 3.3 mg/dL (2.5-4.5); Potassium 3.6 mmol/L (3.5-5.1); Sodium 140 mmol/L (137-145); Total Bilirubin 0.9 mg/dL (0.2-1.3); Total Protein 5.5 g/dL (6.3-8.2)
[2018-09-28] MEDS ORDERED: Potassium Replacement Protocol 1 EACH MISC MISCELLANE PRN (05:57)
[2018-09-28] MEDS ORDERED: POTASSIUM CHLORIDE ER 20 MEQ TAB.ER PO SCH (06:00)
[2018-09-28] MEDS: metFORMIN 500 MG TAB PO SCH ×2 (06:16→17:25)
[2018-09-28] MEDS: PANTOPRAZOLE 40 MG TABLET PO SCH (06:16)
[2018-09-28 06:46] LABS: Glucose,Whole Blood 124 mg/dL (75-99)
[2018-09-28] MEDS: INSULIN ASPART 100 UNIT/ML 1 ML 10 ML VIAL SQ SCH ×4 (06:51→21:51)
[2018-09-28] MEDS: APIXABAN 5 MG TAB PO SCH ×2 (07:58→21:35)
[2018-09-28] MEDS: AMIODARONE 200 MG TAB PO SCH ×3 (07:58→21:35)
[2018-09-28] MEDS: amLODIPine 5 MG TAB PO SCH ×2 (07:58→21:35)
[2018-09-28] MEDS: ATORVASTATIN 40 MG TAB PO SCH (07:58)
[2018-09-28] MEDS: ASPIRIN 81 MG PO SCH (08:23)
[2018-09-28] MEDS: CLOPIDOGREL 75 MG TAB PO SCH (08:23)
--- NOTE | 2018-09-28 08:23 | XR ---
EXAMINATION TYPE: XR chest 1V portable DATE OF EXAM: 09/28/2018 COMPARISON: 09/27/2018 HISTORY: Status post coronary artery bypass grafting. Follow-up exam. TECHNIQUE: Single frontal view of the chest is obtained. FINDINGS: Again there are low lung volumes. Retrocardiac opacity and bibasilar horizontally oriented linear opacities are similar to the prior exam. Scant amount of right minor fissural fluid is also s een. Cardiomegaly and post CABG changes of the chest are redemonstrated. No sizable pneumothorax. IMPRESSION: Stable exam with probable small left pleural effusion and bibasilar opacities likely rep resenting atelectasis.
[2018-09-28] MEDS: IPRATROPIUM-ALBUTEROL 3 ML NEB INHALATION SCH ×4 (08:26→19:38)
[2018-09-28] MEDS ORDERED: FUROSEMIDE 10 MG/ML 4 ML VIAL IV STA (08:48)
--- NOTE | 2018-09-28 08:48 | P.PN ---
Subjective Progress Note Date: 09/28/18 Principal diagnosis: Coronary artery disease, history of coronary artery bypass grafting, closed vein grafts and patent JOSEPH to the LAD with disease in the LAD distal to the anastomosis. 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 POD #5 redo coronary coronary bypass grafting, off-pump 5 specifically sequential left radial artery graft to diagonal and LAD, reverse saphenous vein graft to obtuse marginal, reverse saphenous vein graft to posterior lateral branch, jump vein graft from posterior lateral graft to PDA. Endovascular right greater saphenous vein harvest. Endo radial harvest of the left radial artery. Intraoperative transesophageal echocardiogram by anesthesia. Postoperative atrial fibrillation, unexpected outcome. The patient is currently sitting up in a recliner in no acute distress. Oxygen requirements continued to be weaned down. Patient's effort with incentive spirometry and coughing has gotten better but not significantly. He requires a lot of motivation to get up and move and use his incentive spirometer. He does state pain is better controlled with increasing pain medication. He was up ambulating in the hallway multiple times yesterday. He does remain in atrial fibrillation and was started on anticoagulation yesterday. Objective - Vital Signs Vital signs: Vital Signs Temp 98.2 F 09/28/18 04:00 Pulse 101 H 09/28/18 08:38 Resp 22 09/28/18 06:00 BP 135/91 09/28/18 06:00 Pulse Ox 97 09/28/18 06:00 Intake & Output 09/27/18 09/28/18 09/28/18 18:59 06:59 18:59 Intake Total 1790 480 Output Total 200 0 Balance 1590 480 Intake: IV 0 Lactated Ringers 1,000 ml 0 @ 20 mls/hr IV .Q24H [facility] Rx#:[id number] Intake, IV Titration 250 Amount Potassium Phosphate 10 250 mmol In Sodium Chloride 0 .9% 250 ml @ 125 mls/hr IV ONCE ONE Rx#:[id number] Oral 1540 480 Output: Urine 0 Stool 200 Other: Voiding Method Toilet Toilet # Voids 1 1 ABP, PAP, CO, CI - Last Documented Arterial Blood Pressure 118/58 Pulmonary Artery Pressure 48/21 Cardiac Output 7.5 Cardiac Index 2.9 - Constitutional General appearance: Present: cooperative, no acute distress, obese - Respiratory Details: Lungs sounds diminished bilaterally. Respirations even, nonlabored. Currently on 8 L high flow nasal cannula with oxygen saturation 96%. Able to achieve 1000 mL on his incentive spirometry. Weak cough. - Cardiovascular Details: S1, S2 present. Irregular rate and rhythm, atrial fibrillation on telemetry. Sternum stable. Palpable peripheral pulses bilaterally. Right lower extremity with trace edema. No calf pain or tenderness noted. Antiembolism stockings, SCDs present. Heart hugger in place with patient demonstrating appropriate use. - Gastrointestinal Gastrointestinal Comment(s): Abdomen soft, nontender, nondistended. Active bowel sounds present 4 quadrants. Tolerating diet. Positive bowel movement. - Genitourinary Genitourinary Comment(s): Continues to void clear, yellow urine. - Integumentary Integumentary Comment(s): Skin is warm and dry with evidence of good perfusion. Anterior chest incision well approximated and covered with dry intact dressing. Right lower extremity EVH site well approximated. Left radial artery harvest site well approximated, no numbness or tingling in the extremity, full mobility of the left upper extremity. - Neurologic Neurologic: Present: CNII-XII intact - Musculoskeletal Musculoskeletal: Present: gait normal, strength equal bilaterally - Psychiatric Psychiatric: Present: A&O x's 3, appropriate affect, intact judgment & insight - Allied health notes Allied health notes reviewed: nursing - Labs CBC & Chem 7: 09/28/18 04:42 09/28/18 04:42 Labs: Abnormal Lab Results - Last 24 Hours (Table) 09/27/18 09/27/18 09/27/18 Range/Units 12:02 16:52 20:54 WBC (3.8-10.6) k/uL RBC (4.30-5.90) m/uL Hgb (13.0-17.5) gm/dL Hct (39.0-53.0) % BUN (9-20) mg/dL Glucose (74-99) mg/dL POC Glucose (mg/dL) 117 H 143 H 124 H (75-99) mg/dL Total Protein (6.3-8.2) g/dL Albumin (3.5-5.0) g/dL 09/28/18 09/28/18 09/28/18 Range/Units 04:42 04:42 06:35 WBC 14.2 H (3.8-10.6) k/uL RBC 3.38 L (4.30-5.90) m/uL Hgb 9.9 L (13.0-17.5) gm/dL Hct 30.8 L (39.0-53.0) % BUN 28 H (9-20) mg/dL Glucose 130 H (74-99) mg/dL POC Glucose (mg/dL) 124 H (75-99) mg/dL Total Protein 5.5 L (6.3-8.2) g/dL Albumin 2.8 L (3.5-5.0) g/dL - Imaging and Cardiology Chest x-ray: report reviewed, image reviewed Assessment and Plan (1) Hypertension Current Visit: Yes Status: Chronic Code(s): I10 - ESSENTIAL (PRIMARY) HYPERTENSION SNOMED Code(s): 66313706 (2) Hyperlipidemia Current Visit: Yes Status: Chronic Code(s): E78.5 - HYPERLIPIDEMIA, UNSPECIFIED SNOMED Code(s): 20734110 (3) Family history of early CAD Current Visit: Yes Status: Chronic Code(s): Z82.49 - FAMILY HX OF ISCHEM HEART DIS AND OTH DIS OF THE CIRC SYS SNOMED Code(s): 986818721 (4) History of coronary artery bypass graft Current Visit: Yes Status: Chronic Code(s): Z95.1 - PRESENCE OF AORTOCORONARY BYPASS GRAFT SNOMED Code(s): 815295876 (5) CAD (coronary artery disease) Current Visit: Yes Status: Chronic Code(s): I25.10 - ATHSCL HEART DISEASE OF [place] CORONARY ARTERY W/O ANG PCTRS SNOMED Code(s): 89673296 (6) Diabetes mellitus Current Visit: Yes Status: Chronic Code(s): E11.9 - TYPE 2 DIABETES MELLITUS WITHOUT COMPLICATIONS SNOMED Code(s): 14736782 (7) Obesity Current Visit: Yes Status: Chronic Code(s): E66.9 - OBESITY, UNSPECIFIED SNOMED Code(s): 555399988 (8) Tobacco dependence in remission Current Visit: No Status: Resolved Code(s): F17.201 - NICOTINE DEPENDENCE, UNSPECIFIED, IN REMISSION SNOMED Code(s): 466580149 (9) Obstructive sleep apnea Current Visit: Yes Status: Chronic Code(s): G47.33 - OBSTRUCTIVE SLEEP APNEA (ADULT) (PEDIATRIC) SNOMED Code(s): 98838239 (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 Continue low dose aspirin, plavix, Cozaar, beta-david therapy. Will increase beta-david therapy as tolerated, increase to 100 mg twice daily. 2. Continue Norvasc for radial artery spasm and better blood pressure control. 3. Continue Oral amiodarone for A. fib. Continue Eliquis for anticoagulation. 4. Will give Lasix 40 mg IV push 1. 5. Wean O2 as tolerated. Encourage incentive spirometry use 10 times every hour while awake. Patient needs aggressive pulmonary hygiene. 6. Increase activity as tolerated. Ambulate in hallway. PT/OT/cardiac rehab following. 7. Will monitor daily labs and x-rays. Electrolyte replacement per protocol. 8. Insulin management per primary care service. 9. Bronchodilators per pulmonology. 10. Pain control with current medication regimen. 11. GI prophylaxis with Protonix. DVT prophylaxis with SCDs. 12. Transfer orders to be place with 3 S. cardiac stepdown unit, may transfer when bed available. 13. Discharge planning in progress. Anticipate discharge to home once oxygen weaned down. 14. More recommendations to follow. Time with Patient: Greater than 30
[2018-09-28] MEDS ORDERED: METOPROLOL TARTRATE 25 MG TAB PO SCH (09:00)
--- NOTE | 2018-09-28 09:15 | P.PN ---
Subjective Progress Note Date: 09/28/18 Principal diagnosis: Status post redo CABG, postop day 3 Status post redo CABG, postoperative day #2. Off pump 5 sequential left radial artery graft to diagonal and LAD reverse saphenous vein graft to obtuse marginal and reverse saphenous graft to posterior lateral branch jump vein graft from posterior lateral graft to PDA Coronary artery disease, history of coronary artery bypass grafting, closed vein grafts and patent JOSEPH to the LAD with disease in the LAD distal to the anastomosis. 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 Patient was reevaluated today on 09/25/2018, he is status post redo CABG, postoperative day #2. Patient is doing well, he is on few liters nasal cannula , denies any specific complaints, chest x-ray showed evidence of mild congestive heart failure, hence one dose of Lasix was given. Minimal bibasilar atelectasis also noted on the chest x-ray, patient is doing poorly with incentive spirometer. CBC showed WBC count of 18.4 basic metabolic profile is normal. 09/26/2018 patient seen again in follow-up in the intensive care unit. His postop day 3 status post redo coronary artery bypass grafting, off pump, 5 vessel CABG. Remains on Airvo, continue 35 L/m over 73% FiO2, his pulse ox is 93%, he is afebrile, A. fib on the monitor, bit hypertensive with a blood pressure 154/99. Patient is on amiodarone drip currently at 0.25 mg per min. Lactated Ringer's at a rate of 20 ML per hour, no other drips. Patient's Cozaar is being restarted by CT surgery, today's chest x-ray has been reviewed by Dr. Vazquez, and shows changes consistent with fluid overload, low lung volumes , central vascular congestion, and bilateral pleural effusions, left greater than the right. he received 20 mg of Lasix this morning per Dr. Solorzano, we recommend additional 20 mg now. [place] has been discontinued, chest tubes and epicardial wires have been discontinued. Patient is voiding. He is in no acute distress, not using accessory muscles of breathing. Lung sounds are positive for diminished breath sounds over left lower base, and some crackles over right disease. Working on his incentive spirometry, his pain is reasonably well controlled. On 09/27/2018 patient seen in follow-up in the intensive care unit, his oxygen requirement has significantly decreased, we were able to wean him off the Airvo and he is currently on 10 L per high flow nasal cannula. Vital signs are stable. Remains in A. fib on the monitor, with a rate of 88 BPM, hemodynamically stable. This is postop day 4 status post 5 vessel coronary artery bypass grafting. His chest x-ray has been reviewed by Dr. Akers, and shows overall stable exam with low lung volumes and findings suggesting mild pulmonary vascular congestion and small pleural effusions with adjacent atelectasis. Patient will receive another dose of IV Lasix [address] surgery. Patient's IV fluids have been hep-locked, patient is working on his incentive spirometer, he is able to achieve 1000 and melena today. Lung sounds reveal diminished breath sounds over left lower base, and some crackles over right lower base. Today's labs have been reviewed, white blood cell count is trending down, down to 15.6 today, hemoglobin is 10.2, lites are within normal limits, BUN is 28 and creatinine 0.71. On 09/28/2018 she seen again in follow-up in the intensive care unit, FiO2 is currently down to 8 L per nasal cannula, and her pulse ox is 94%. Signs are stable, patient remains in A. fib with a controlled rate. Afebrile, denies any difficulty breathing, states last night she had episode of coughing, and he was able to clear some secretions. Today's reveals diminished breath sounds over left lower base, with some crackles on the right, today's chest x-ray was reviewed by Dr. Vazquez, showed a stable exam with probable small left pleural effusion and bibasilar opacities likely representing atelectasis. Today's lab work was noted. No acute events overnight, patient has been ambulating around the unit, tolerating activity quite well. Objective - Vital Signs Vital signs: Vital Signs Temp 98.2 F 09/28/18 04:00 Pulse 101 H 09/28/18 08:38 Resp 22 09/28/18 06:00 BP 135/91 12/19/18 06:00 Pulse Ox 97 09/28/18 06:00 Intake & Output 09/27/18 09/28/18 09/28/18 18:59 06:59 18:59 Intake Total 1790 480 Output Total 200 0 Balance 1590 480 Intake: IV 0 Lactated Ringers 1,000 ml 0 @ 20 mls/hr IV .Q24H [facility] Rx#:[id number] Intake, IV Titration 250 Amount Potassium Phosphate 10 250 mmol In Sodium Chloride 0 .9% 250 ml @ 125 mls/hr IV ONCE ONE Rx#:[id number] Oral 1540 480 Output: Urine 0 Stool 200 Other: Voiding Method Toilet Toilet # Voids 1 1 ABP, PAP, CO, CI - Last Documented Arterial Blood Pressure 118/58 Pulmonary Artery Pressure 48/21 Cardiac Output 7.5 Cardiac Index 2.9 - Exam Physical Exam: Revealed a 68-year-old white male in no distress. On few liters nasal cannula Head: Atraumatic, normocephalic. HEENT:[Neck is supple.] [No neck masses.] [No thyromegaly.] [No JVD.] Chest: [Diminished breath sounds at the bases, diminished breath sounds at the left base, some crackles on the right Cardiac Exam: [Normal S1 and S2, no S3 gallop, positive pericardial rub. No murmur. Abdomen: [Obese, Soft, nontender, no megaly, no rebound, no guarding, normal bowel sounds.] Extremities: Lower extremities are both are wrapped with Dereck wrapping. Neurological Exam: [No gross focal neurologic deficit.] Psychiatric: Normal mood, affect and mental status examination. - Labs CBC & Chem 7: 09/28/18 04:42 09/28/18 04:42 Labs: Abnormal Lab Results - Last 24 Hours (Table) 09/27/18 09/27/18 09/27/18 Range/Units 12:02 16:52 20:54 WBC (3.8-10.6) k/uL RBC (4.30-5.90) m/uL Hgb (13.0-17.5) gm/dL Hct (39.0-53.0) % BUN (9-20) mg/dL Glucose (74-99) mg/dL POC Glucose (mg/dL) 117 H 143 H 124 H (75-99) mg/dL Total Protein (6.3-8.2) g/dL Albumin (3.5-5.0) g/dL 09/28/18 09/28/18 09/28/18 Range/Units 04:42 04:42 06:35 WBC 14.2 H (3.8-10.6) k/uL RBC 3.38 L (4.30-5.90) m/uL Hgb 9.9 L (13.0-17.5) gm/dL Hct 30.8 L (39.0-53.0) % BUN 28 H (9-20) mg/dL Glucose 130 H (74-99) mg/dL POC Glucose (mg/dL) 124 H (75-99) mg/dL Total Protein 5.5 L (6.3-8.2) g/dL Albumin 2.8 L (3.5-5.0) g/dL Assessment and Plan Plan: 1 status post redo CABG with 5 grafts. Postoperative day #5. 2 postoperative atelectasis and suspect mild congestive heart failure changes, expected postoperatively. 3 postoperative atrial fibrillation, currently on amiodarone drip 4 benign essential hypertension 5 hyperlipidemia 6 type 2 diabetes 7 obesity 8 tobacco dependence in remission 9 obstructive sleep apnea syndrome on CPAP 10 previous splenectomy 11 peripheral vascular disease. Mostly affecting lower extremities. Plan: Continue encouraging deep breathing and coughing, ambulation, continue weaning FiO2, today's chest x-ray was reviewed, showed stable findings of left pleural effusion, adjacent atelectasis bilaterally. CT surgery is planning on giving the patient a dose of IV Lasix. In no acute distress, A. fib is controlled. Tolerating ambulation. Continue to follow I performed a history & physical examination of the patient and discussed their management with my nurse practitioner, Teri Ott. I reviewed the nurse practitioner's note and agree with the documented findings and plan of care. Lung sounds are positive for diminished breath sounds over left lower base, some crackles on the right. The findings and the impression was discussed with the patient. I attest to the documentation by the nurse practitioner. Time with Patient: Greater than 30
[2018-09-28] MEDS ORDERED: METOPROLOL TARTRATE 25 MG TAB PO STA (09:32)
[2018-09-28] MEDS: LOSARTAN 50 MG TAB PO SCH (13:00)
--- NOTE | 2018-09-28 13:03 | PN ---
PROGRESS NOTE Mr. De Anda is a patient with a redo bypass surgery, the reason atrial fib rate is slightly faster. I am recommending we increase the Lopressor to 75 mg t.i.d. He is hemodynamically stable, tolerating arrhythmia well, S1-S2 heard normally, irregular rhythm noted, short systolic murmur noted. Lungs reveal improved air entry. Abdomen and lower extremity exam unchanged. Plan is to continue incentive spirometry, pulmonary toilet, increase beta david and plan for discharge soon. MMODL / IJN: [id number] /
--- NOTE | 2018-09-28 14:14 | P.PN ---
Subjective Progress Note Date: 09/28/18 This is a 68-year-old gentleman patient of dr Henderson and Dr. Peters. he has signifcant CAD with prior cabg over [address] stoddard. he comes in for scheduled redo of CABG for tripple vessel disease as he had exertional dyspnea, patient had previous stress test showing large reversible stress induce ischemia and underwent cardiac catheterization, and he was found to have patent JOSEPH to LAD, tight stenosis in the LAD just beyond the anastomosis, the [place] coronary shows complete occlusion of the LAD prior to the JOSEPH anastomosis there is a vein graft to diagonal that is still patent, however there was no flow in the diagonal beyond the anastomosis. Retrograde flow in the very diseased diagonal coronary artery up into a small segment of the LAD that is distal to the complete occlusion and proximal to the L MEHDI anastomosis. The [place] right coronary artery was completely occluded , the vein graft to the right coronary artery system and there were 2 both completely occluded. Echocardiogram showed good ejection fraction of 50%. he underwent aOn 2017, redo CABG was done, postoperatively heas seen in the icu and is mangaed by Dr Canchola the patient was on mechanical ventilation overnight, and around the 9:00 this morning, the patient was eventually extubated. When I saw the patient this morning, he was on nasal cannula, and in no distress. Chest x-ray showed postoperative changes, and minimal bibasilar atelectasis with small bilateral effusions. He is currently comfortable and hungry and is beeing started on full liquid diet. And his O2 saturation was 94% on 3 L nasal cannula patient denied any chest pain, no shortness of breath, no wheezing, no neurologic or abdominal symtoms no melena, no hematemesis. no prior history of GI bleed in past, denies history of asthma or pneumothorax or prior venous thromboembolism. 09/25: patient currently is in ICU. He is doing well without any angina pain or dyspnea, pt has rib pain left [place] where his the bar on chest harness rest in his chest. chest tube diana removed today. no hematoma formation on chest wall insulin drip running with current 8 hour requirements of about 27 units today patient no receptive on using basal bolus regimen for dm control, aic 6.5. will resume metformin 1 gm bid. insulin drip will be discontinued around 8 pm today 09/26: Patient is on nasal airflow. He states he is using incentive spirometry 10 times every hour. He states he walked in the hallway 2 times this morning. Physical therapy is recommended inpatient rehab or home with homecare. He did receive 1 dose of IV Lasix this morning. He is off the insulin drip. Blood sugars are running between 93 and 155. Discharge plan is home with [facility]. 09/27: Patient remains in the intensive care unit. He is currently on nasal cannula at 10 L. his nurse states that he required 15 L to maintain his pulse ox with ambulation today. Plan is to wean him down on oxygen. All chest tubes , Cortez, cortisone are out. Patient was given Lasix 40 mg this morning and has been diuresing well. Patient states he has had trouble sleeping and melatonin added. 09/28: Patient states he is feeling better. He is ambulating in the hallway with oxygen. He denies having any chest pain or lightheadedness or dizziness. He states he slept better last night after taking melatonin. secured entrance monitor his atrial fibrillation controlled rate. He did receive Lasix 40 mg IV 1 this morning we will order for Lasix 40 oral daily starting tomorrow. Blood sugars are running between 124 and 143. Hemoglobin 9.9, white count 14.2, creatinine 0.75. Patient is currently on high flow nasal cannula at 6 L pulse oxing 95%. Discharge plan is home with [facility]. Review Of Systems: Constitutional: No fever, no chills, no night sweats. No weight change. No weakness, fatigue or lethargy. EENT: No headache. No blurred vision or double vision, no loss of vision. No loss of Hearing, no ringing in the ears, no dizziness. Lungs: Reports shortness of breath, cough, no sputum production. No wheezing. Cardiovascular: No chest pain, no lower extremity edema. No palpitations. No paroxysmal nocturnal dyspnea. No orthopnea. No lightheadedness or dizziness. No syncopal episodes. Abdominal: No abdominal pain. No nausea, vomiting. No diarrhea. No constipation. No bloody or tarry stools.. No loss of appetite. Genitourinary: No dysuria, increased frequency, urgency. No urinary retention. Musculoskeletal: No myalgias. No muscle weakness, no gait dysfunction, no frequent falls. No back pain. No neck pain. Integumentary: No wounds, no lesions. No rash or pruritus. No unusual bruising. No change in hair or nails. Neurologic: No aphasia. No facial droop. No change in mentation. No head injury. No headache. No paralysis. No paresthesia. Psychiatric: No depression. No anxiety. No mood swings. Reports insomnia Endocrine: reports abnormal blood sugars. No weight change. No excessive sweating or thirst. Objective - Vital Signs Vital signs: Vital Signs Temp 97.9 F 09/28/18 08:00 Pulse 101 H 09/28/18 08:38 Resp 21 09/28/18 09:00 BP 151/91 09/28/18 09:00 Pulse Ox 95 09/28/18 09:00 Intake & Output 09/27/18 09/28/18 09/28/18 18:59 06:59 18:59 Intake Total 1790 480 300 Output Total 200 0 500 Balance 1590 480 -200 Intake: IV 0 Lactated Ringers 1,000 ml 0 @ 20 mls/hr IV .Q24H [facility] Rx#:[id number] Intake, IV Titration 250 Amount Potassium Phosphate 10 250 mmol In Sodium Chloride 0 .9% 250 ml @ 125 mls/hr IV ONCE ONE Rx#:[id number] Oral 1540 480 300 Output: Urine 0 500 Stool 200 Other: Voiding Method Toilet Toilet # Voids 1 1 ABP, PAP, CO, CI - Last Documented Arterial Blood Pressure 118/58 Pulmonary Artery Pressure 48/21 Cardiac Output 7.5 Cardiac Index 2.9 - Exam General appearance: Present: cooperative, no acute distress, obese, appears comfortable in recliner, patient also seen ambulating in hallway without any noted distress. - EENT Eyes: Present: anicteric sclerae, EOMI, dentition normal, normal appearance ENT: Present: hard of hearing, NA/AT, normal oropharynx - Neck Neck: Present: normal ROM - Respiratory Respiratory: bilateral: CTA, negative: diminished, dullness, rales, rhonchi, no accessory muscle usage - Cardiovascular Rhythm: regular Heart sounds: normal: S1, S2 Abnormal Heart Sounds: Absent: systolic murmur, diastolic murmur, rub, S3 Gallop , S4 Gallop, click, other - Gastrointestinal General gastrointestinal: Present: normal bowel sounds, soft - Integumentary Integumentary: Present: decreased turgor, normal - Neurologic Neurologic: Present: CNII-XII intact - Musculoskeletal Musculoskeletal: Present: gait normal, strength equal bilaterally - Labs CBC & Chem 7: 09/28/18 04:42 09/28/18 04:42 Labs: Abnormal Lab Results - Last 24 Hours (Table) 09/27/18 09/27/18 09/27/18 Range/Units 12:02 16:52 20:54 WBC (3.8-10.6) k/uL RBC (4.30-5.90) m/uL Hgb (13.0-17.5) gm/dL Hct (39.0-53.0) % BUN (9-20) mg/dL Glucose (74-99) mg/dL POC Glucose (mg/dL) 117 H 143 H 124 H (75-99) mg/dL Total Protein (6.3-8.2) g/dL Albumin (3.5-5.0) g/dL 09/28/18 09/28/18 09/28/18 Range/Units 04:42 04:42 06:35 WBC 14.2 H (3.8-10.6) k/uL RBC 3.38 L (4.30-5.90) m/uL Hgb 9.9 L (13.0-17.5) gm/dL Hct 30.8 L (39.0-53.0) % BUN 28 H (9-20) mg/dL Glucose 130 H (74-99) mg/dL POC Glucose (mg/dL) 124 H (75-99) mg/dL Total Protein 5.5 L (6.3-8.2) g/dL Albumin 2.8 L (3.5-5.0) g/dL Assessment and Plan Plan: 1. Coronary artery disease, history of coronary artery bypass grafting, closed vein grafts and patent JOSEPH to the LAD with disease in the LAD distal to the anastomosis s/p Redo coronary CABG 5 specifically sequential left radial artery graft to diagonal and LAD, saphenous vein graft to obtuse marginal, saphenous vein graft to posterior lateral branch, jump vein graft from posterior lateral graft to PDA. Endovascular right greater saphenous vein harvest. Endo radial harvest of the left. performed on 09/23/[address] Rodríguez. Continue current plan per cardiothoracic surgery, patient is followed by pulmonary medicine. 2. Diabetes mellitus 2 with hyperglycemia and complication, off insulin drip , transitioned to oral metformin 1 gm bid. Hemoglobin A1c 6.5 3. hypertensive cardiovascular disease, currently on amiodarone 200 mg 3 times daily, Norvasc 5 mg twice daily, losartan 100 mg daily, Lopressor 75 mg twice daily. 4. ZEFERINO on cpap machine 5. hyperlipidemia on lipitor 80 6. prior hx of splenectomy 7. 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 dvt prophylaxis heparin sq 9, GI prophylaxis 10. Atrial fibrillation with controlled response, probable paroxysmal atrial fibrillation. Continue eliquis, amiodarone, Lopressor. Discharge plan: Home with [facility] Impression and plan of care have been directed as dictated by the signing physician. Tiff Mclean nurse practitioner acting as scribe for signing physician.
[2018-09-28 17:39] LABS: Glucose,Whole Blood 133 mg/dL (75-99)
[2018-09-28] MEDS: MELATONIN 3 MG TABLET PO SCH (21:33)
[2018-09-28] MEDS: METOPROLOL TARTRATE 50 MG TAB PO SCH (21:34)
[2018-09-28] MEDS: SENNOSIDES-DOCUSATE SODIUM 1 EACH TAB PO SCH (21:34)
[2018-09-28 21:53] LABS: Glucose,Whole Blood 136 mg/dL (75-99)
[2018-09-29] MEDS: KETOROLAC 30 MG/ML 1 ML VIAL IVP SCH ×2 (00:03→06:35)
[2018-09-29 03:36] LABS: Glucose,Whole Blood 127 mg/dL (75-99)
[2018-09-29 05:42] LABS: Basophils % (A) 0 %; Eosinophils # (A) 0.7 k/uL (0-0.7); Eosinophils % (A) 6 %; HCT 32.6 % (39.0-53.0); HGB 10.2 gm/dL (13.0-17.5); Lymphocytes % (A) 16 %; MCH 28.8 pg (25.0-35.0); MCHC 31.3 g/dL (31.0-37.0); Mean Platelet Volume 7.3; Monocytes # (A) 1.2 k/uL (0-1.0); Monocytes % (A) 10 %; Neutrophils # (A) 8.3 k/uL (1.3-7.7); Neutrophils % (A) 66 %; Platelet Count 424 k/uL (150-450); RBC 3.54 m/uL (4.30-5.90); RDW 13.8 % (11.5-15.5); WBC 12.5 k/uL (3.8-10.6)
[2018-09-29 05:50] LABS: ALT 32 U/L (21-72); AST 26 U/L (17-59); Albumin 3.2 g/dL (3.5-5.0); Alkaline Phosphatase 75 U/L (38-126); Anion Gap 10 mmol/L; Blood Urea Nitrogen 25 mg/dL (9-20); Carbon Dioxide 26 mmol/L (22-30); Chloride 103 mmol/L (98-107); Glucose 125 mg/dL (74-99); Magnesium 1.8 mg/dL (1.6-2.3); Sodium 139 mmol/L (137-145); Total Protein 6.1 g/dL (6.3-8.2)
[2018-09-29 07:36] LABS: Glucose,Whole Blood 141 mg/dL (75-99)
--- NOTE | 2018-09-29 07:36 | XR ---
EXAMINATION TYPE: XR chest 2V DATE OF EXAM: 09/29/2018 COMPARISON: Chest x-ray from yesterday and older studies. HISTORY: Post open cardiac surgery progress study. TECHNIQUE: Frontal and lateral views of the chest are obtained. FINDINGS: Overlying sternal wires are again seen. Low lung volumes are redemonstrated. Retrocardiac o pacity and bibasilar opacities are redemonstrated. Suspect small bilateral pleural effusions. Cardiom egaly with ectatic thoracic aorta remains present. No sizable pneumothorax is seen bilaterally. Clark us structures are intact. Elevated left hemidiaphragm is again seen. IMPRESSION: Overall stable findings, low lung volumes and cardiomegaly with small bilateral pleural effusions and associated bibasilar atelectasis and/or infiltrate all redemonstrated.
[2018-09-29] MEDS: IPRATROPIUM-ALBUTEROL 3 ML NEB INHALATION SCH ×2 (08:36→12:11)
[2018-09-29] MEDS: metFORMIN 500 MG TAB PO SCH (08:39)
[2018-09-29] MEDS: INSULIN ASPART 100 UNIT/ML 1 ML 10 ML VIAL SQ SCH ×2 (08:40→12:27)
[2018-09-29] MEDS ORDERED: FUROSEMIDE 40 MG TAB PO SCH (09:00)
--- NOTE | 2018-09-29 09:35 | P.PN ---
Subjective Progress Note Date: 09/29/18 Principal diagnosis: Status post redo CABG, postop day 3 Status post redo CABG, postoperative day #2. Off pump 5 sequential left radial artery graft to diagonal and LAD reverse saphenous vein graft to obtuse marginal and reverse saphenous graft to posterior lateral branch jump vein graft from posterior lateral graft to PDA Coronary artery disease, history of coronary artery bypass grafting, closed vein grafts and patent JOSEPH to the LAD with disease in the LAD distal to the anastomosis. 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 Patient was reevaluated today on 09/25/2018, he is status post redo CABG, postoperative day #2. Patient is doing well, he is on few liters nasal cannula , denies any specific complaints, chest x-ray showed evidence of mild congestive heart failure, hence one dose of Lasix was given. Minimal bibasilar atelectasis also noted on the chest x-ray, patient is doing poorly with incentive spirometer. CBC showed WBC count of 18.4 basic metabolic profile is normal. 09/26/2018 patient seen again in follow-up in the intensive care unit. His postop day 3 status post redo coronary artery bypass grafting, off pump, 5 vessel CABG. Remains on Airvo, continue 35 L/m over 73% FiO2, his pulse ox is 93%, he is afebrile, A. fib on the monitor, bit hypertensive with a blood pressure 154/99. Patient is on amiodarone drip currently at 0.25 mg per min. Lactated Ringer's at a rate of 20 ML per hour, no other drips. Patient's Cozaar is being restarted by CT surgery, today's chest x-ray has been reviewed by Dr. Vazquez, and shows changes consistent with fluid overload, low lung volumes , central vascular congestion, and bilateral pleural effusions, left greater than the right. he received 20 mg of Lasix this morning per Dr. Solorzano, we recommend additional 20 mg now. Cortez has been discontinued, chest tubes and epicardial wires have been discontinued. Patient is voiding. He is in no acute distress, not using accessory muscles of breathing. Lung sounds are positive for diminished breath sounds over left lower base, and some crackles over right disease. Working on his incentive spirometry, his pain is reasonably well controlled. On 09/27/2018 patient seen in follow-up in the intensive care unit, his oxygen requirement has significantly decreased, we were able to wean him off the Airvo and he is currently on 10 L per high flow nasal cannula. Vital signs are stable. Remains in A. fib on the monitor, with a rate of 88 BPM, hemodynamically stable. This is postop day 4 status post 5 vessel coronary artery bypass grafting. His chest x-ray has been reviewed by Dr. Akers, and shows overall stable exam with low lung volumes and findings suggesting mild pulmonary vascular congestion and small pleural effusions with adjacent atelectasis. Patient will receive another dose of IV Lasix [address] surgery. Patient's IV fluids have been hep-locked, patient is working on his incentive spirometer, he is able to achieve 1000 and melena today. Lung sounds reveal diminished breath sounds over left lower base, and some crackles over right lower base. Today's labs have been reviewed, white blood cell count is trending down, down to 15.6 today, hemoglobin is 10.2, lites are within normal limits, BUN is 28 and creatinine 0.71. On 09/28/2018 she seen again in follow-up in the intensive care unit, FiO2 is currently down to 8 L per nasal cannula, and her pulse ox is 94%. Signs are stable, patient remains in A. fib with a controlled rate. Afebrile, denies any difficulty breathing, states last night she had episode of coughing, and he was able to clear some secretions. Today's reveals diminished breath sounds over left lower base, with some crackles on the right, today's chest x-ray was reviewed by Dr. Vazquez, showed a stable exam with probable small left pleural effusion and bibasilar opacities likely representing atelectasis. Today's lab work was noted. No acute events overnight, patient has been ambulating around the unit, tolerating activity quite well. On 09/29/2018 patient seen in follow-up in the intensive care unit. No acute distress, he is on room air, oxygen 92%, afebrile, hemodynamically stable. Patient has been ambulating extensively around the unit, tolerating activity very well, no dyspnea, his pain is under good control, today's chest X-ray has been reviewed and showed stable findings with low lung volumes, cardiomegaly and evidence of bilateral small pleural effusions and associated bibasilar atelectasis. Spirometer effort 1000 mL today. No IV drips of fluids. We'll discharge home today, labs have been reviewed. Objective - Vital Signs Vital signs: Vital Signs Temp 98.2 F 09/29/18 04:00 Pulse 80 09/29/18 08:49 Resp 16 09/29/18 04:00 BP 140/96 09/29/18 04:00 Pulse Ox 92 L 09/29/18 04:00 Intake & Output 09/28/18 09/29/18 09/29/18 18:59 06:59 18:59 Intake Total 1080 490 Output Total 1000 425 Balance 80 65 Weight 139.1 kg Intake: Oral 1080 490 Output: Urine 1000 425 Other: Voiding Method Urinal # Voids 2 ABP, PAP, CO, CI - Last Documented Arterial Blood Pressure 118/58 Pulmonary Artery Pressure 48/21 Cardiac Output 7.5 Cardiac Index 2.9 - Exam Physical Exam: Revealed a 68-year-old white male in no distress. On few liters nasal cannula Head: Atraumatic, normocephalic. HEENT:[Neck is supple.] [No neck masses.] [No thyromegaly.] [No JVD.] Chest: [Diminished breath sounds at the bases, diminished breath sounds at the left base, some crackles on the right Cardiac Exam: [Normal S1 and S2, no S3 gallop, positive pericardial rub. No murmur. Abdomen: [Obese, Soft, nontender, no megaly, no rebound, no guarding, normal bowel sounds.] Extremities: Lower extremities are both are wrapped with Dereck wrapping. Neurological Exam: [No gross focal neurologic deficit.] Psychiatric: Normal mood, affect and mental status examination. - Labs CBC & Chem 7: 09/29/18 05:03 09/29/18 04:57 Labs: Abnormal Lab Results - Last 24 Hours (Table) 09/28/18 09/28/18 09/29/18 Range/Units 17:27 21:42 03:24 WBC (3.8-10.6) k/uL RBC (4.30-5.90) m/uL Hgb (13.0-17.5) gm/dL Hct (39.0-53.0) % Neutrophils # (1.3-7.7) k/uL Monocytes # (0-1.0) k/uL BUN (9-20) mg/dL Glucose (74-99) mg/dL POC Glucose (mg/dL) 133 H 136 H 127 H (75-99) mg/dL Total Protein (6.3-8.2) g/dL Albumin (3.5-5.0) g/dL 09/29/18 09/29/18 09/29/18 Range/Units 04:57 05:03 07:25 WBC 12.5 H (3.8-10.6) k/uL RBC 3.54 L (4.30-5.90) m/uL Hgb 10.2 L (13.0-17.5) gm/dL Hct 32.6 L (39.0-53.0) % Neutrophils # 8.3 H (1.3-7.7) k/uL Monocytes # 1.2 H (0-1.0) k/uL BUN 25 H (9-20) mg/dL Glucose 125 H (74-99) mg/dL POC Glucose (mg/dL) 141 H (75-99) mg/dL Total Protein 6.1 L (6.3-8.2) g/dL Albumin 3.2 L (3.5-5.0) g/dL Assessment and Plan Plan: 1 status post redo CABG with 5 grafts. Postoperative day #6. 2 postoperative atelectasis and suspect mild congestive heart failure changes, expected postoperatively. 3 postoperative atrial fibrillation, currently on amiodarone drip 4 benign essential hypertension 5 hyperlipidemia 6 type 2 diabetes 7 obesity 8 tobacco dependence in remission 9 obstructive sleep apnea syndrome on CPAP 10 previous splenectomy 11 peripheral vascular disease. Mostly affecting lower extremities. Plan: Today's chest x-ray has been reviewed by Dr. Vazquez, shows small bilateral pleural effusions and adjacent atelectasis. She is doing quite well, no dyspnea , denies any pain. On room air, tolerating ambulation. Patient is anticipated to be discharged home today, he will need to follow-up with Dr. Stone in one week. I performed a history & physical examination of the patient and discussed their management with my nurse practitioner, Teri Ott. I reviewed the nurse practitioner's note and agree with the documented findings and plan of care. Lung sounds are positive for diminished breath sounds over left lower base, some crackles on the right. The findings and the impression was discussed with the patient. I attest to the documentation by the nurse practitioner. Time with Patient: Less than 30
[2018-09-29] MEDS: CLOPIDOGREL 75 MG TAB PO SCH (10:20)
[2018-09-29] MEDS: METOPROLOL TARTRATE 50 MG TAB PO SCH (10:20)
[2018-09-29] MEDS: PANTOPRAZOLE 40 MG TABLET PO SCH (10:21)
[2018-09-29] MEDS: amLODIPine 5 MG TAB PO SCH (10:21)
[2018-09-29] MEDS: ASPIRIN 81 MG PO SCH (10:21)
[2018-09-29] MEDS: ATORVASTATIN 40 MG TAB PO SCH (10:21)
[2018-09-29] MEDS: APIXABAN 5 MG TAB PO SCH (10:21)
[2018-09-29] MEDS: AMIODARONE 200 MG TAB PO SCH (10:21)
--- NOTE | 2018-09-29 11:20 | P.DS ---
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 Do you want consulting provider notified?: Yes Primary care physician: Chito Henderson - Discharge Diagnosis(es) (1) Hypertension Current Visit: Yes Status: Chronic (2) Hyperlipidemia Current Visit: Yes Status: Chronic (3) Family history of early CAD Current Visit: Yes Status: Chronic (4) History of coronary artery bypass graft Current Visit: Yes Status: Chronic (5) CAD (coronary artery disease) Current Visit: Yes Status: Chronic (6) Diabetes mellitus Current Visit: Yes Status: Chronic (7) Obesity Current Visit: Yes Status: Chronic (8) Tobacco dependence in remission Current Visit: No Status: Resolved (9) Obstructive sleep apnea Current Visit: Yes Status: Chronic (10) Status post splenectomy Current Visit: Yes Status: Chronic (11) Peripheral artery disease Current Visit: Yes Status: Chronic Hospital Course: FINAL DIAGNOSIS: 1. Coronary artery disease 2. History of coronary artery bypass grafting, closed vein grafts and patent JOSEPH to the LAD with disease in the LAD distal to the anastomosis 3. Diabetes with preoperative hemoglobin A1c 6.5% 4. Morbid obesity 5. Hyperlipidemia 6. Hypertension 7. Previous tobacco dependence with preoperative FEV1 86% of predicted 8. Obstructive sleep apnea without CPAP use 9. 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 Paroxysmal atrial fibrillation in 2008 after his previous CABG 11. Peripheral artery disease 12. Family history of premature coronary artery disease 13. Postoperative atrial fibrillation PRINCIPAL PROCEDURE: 1. Redo coronary bypass grafting, off-pump 5 specifically sequential left radial artery graft to diagonal and LAD, reverse saphenous vein graft to the obtuse marginal, reverse saphenous vein graft to the posterior lateral branch, jump vein graft from the posterior lateral graft to PDA 2. Endovascular right greater saphenous vein harvest 3. Endo radial harvest of the left radial artery 4. Intraoperative transesophageal echocardiogram by anesthesia HISTORY OF PRESENT ILLNESS: This is a 68-year-old gentleman who follows with Dr. Henderson on an outpatient basis. He was being followed by Dr. Bagley after previous open heart in 2008. Recently he had been experiencing very mild exertional anginal symptomatology. He had a stress test in 2016, which showed a small area of inferior ischemia. He had another stress test in July of this year, which showed a large area of reversible ischemia in the anterior and anterolateral wall with downsloping STT wave changes concerning for ischemia. He subsequently underwent cardiac catheterization which demonstrated a patent JOSEPH to the LAD with tight stenosis in the LAD just beyond the anastomosis. The kasaan coronary injection showed complete occlusion of the LAD prior to the JOSEPH anastomosis. There was a vein graft to a diagonal that was still patent, however there was no flow in the diagonal beyond the anastomosis. There was retrograde flow in the very diseased diagonal coronary artery up to a small segment of LAD that was distal to the complete occlusion and proximal to the JOSEPH anastomosis. The kasaan coronary injection also showed a tight stenosis in the major marginal branch. This was compared to the initial catheterization in 2007 prior to his previous bypass surgery, which showed only mild to moderate disease of the circumflex system. The kasaan right coronary artery was completely occluded. The vein grafts to the right coronary artery were both completely occluded. The patient was referred to Dr. Rodríguez from cardiothoracic surgery. He was recommended to undergo repeat coronary artery bypass graft surgery. The usual perioperative course was discussed in detail with the patient and his family, all risks and benefits were explained, all questions were answered, and consent was obtained to proceed with surgery. HOSPITAL COURSE: The patient was brought to the hospital on 09/23/2018, taken to the preoperative area, prepared in the usual fashion, and subsequently taken to the operating room where Dr. Rodríguez performed a redo coronary bypass grafting , off-pump 5 specifically sequential left radial artery graft to diagonal and LAD, reverse saphenous vein graft to the obtuse marginal, reverse saphenous vein graft to the posterior lateral branch, jump vein graft from the posterior lateral graft to PDA, endovascular right greater saphenous vein harvest, endo radial harvest of the left radial artery, and intraoperative transesophageal echocardiogram by anesthesia. Upon completion of surgery the patient was transferred to the cardiovascular intensive care unit where he was recovered, monitored hemodynamically, and where he progressed to cardiac rehabilitation phase 1. He was extubated, all lines, tubes, and drips were discontinued when appropriate, and orders were placed to transfer the patient to [address] [place] [address] cardiac stepdown unit, however there was no bed availability and the patient was kept in the intensive care unit until discharge as an overflow patient. He did experience postoperative atrial fibrillation which was treated with amiodarone and Eliquis for anticoagulation. We did have difficulty weaning his oxygen saturation due to lack of motivation to cough and deep breathe but his oxygen was eventually titrated down, he continued to work with physical and occupational therapy, he was tolerating oral diet, his pain was controlled, and he was ready to be discharged to home with [facility] on postoperative day #6. He received written and verbal instruction regarding his medications, activity restrictions, signs and symptoms requiring physician notification, and follow-up appointments. COMPLICATIONS: The patient experienced postoperative atrial fibrillation which was treated accordingly. Plan - Discharge Summary Discharge Rx Participant: Yes New Discharge Prescriptions: New Amiodarone [Cordarone] 200 mg PO TID #90 tab amLODIPine [Norvasc] 5 mg PO BID #60 tab Apixaban [Eliquis] 5 mg PO BID #60 tab Atorvastatin [Lipitor] 40 mg PO DAILY #30 tab Clopidogrel [Plavix] 75 mg PO DAILY #60 tab Furosemide [Lasix] 40 mg PO DAILY #14 tab Melatonin 6 mg PO HS #30 tablet Metoprolol Tartrate [Lopressor] 100 mg PO BID #120 tab Pantoprazole [Protonix] 40 mg PO AC-BRKFST #[address] Muhammad-Docusate Sodium [Senokot-S] 2 each PO HS PRN tab PRN Reason: Constipation Continue Cholecalciferol [Vitamin D3] 1,000 unit PO DAILY Cetirizine HCl [Zyrtec] 10 mg PO DAILY PRN PRN Reason: Cold Symptoms Mv-Mn/C/Glutamin/Lysin/Piwl246 [Airborne Gummies] 1 tab PO TID PRN PRN Reason: Cold Symptoms Multivitamin [Men's Multi-Vitamin] 1 tab PO DAILY Aspirin 81 mg PO DAILY #30 chew Losartan Potassium [Cozaar] 100 mg PO DAILY #30 tablet metFORMIN HCL [Glucophage] 1,000 mg PO BID #120 tab Discontinued Pravastatin Sodium [Pravachol] 40 mg PO HS Metoprolol Tartrate [Lopressor] 25 mg PO BID amLODIPine [Norvasc] 10 mg PO DAILY Resveratrol 200 mg PO DAILY Magnesium 400 mg PO DAILY Lisinopril 40 mg PO DAILY Discharge Medication List Cetirizine HCl [Zyrtec] 10 mg PO DAILY PRN 09/15/18 [History] Cholecalciferol [Vitamin D3] 1,000 unit PO DAILY 09/15/18 [History] Multivitamin [Men's Multi-Vitamin] 1 tab PO DAILY 09/15/18 [History] Mv-Mn/C/Glutamin/Lysin/Bmrk350 [Airborne Gummies] 1 tab PO TID PRN 09/15/18 [ History] Amiodarone [Cordarone] 200 mg PO TID #90 tab 09/29/18 [Rx] Apixaban [Eliquis] 5 mg PO BID #60 tab 09/29/18 [Rx] Aspirin 81 mg PO DAILY #30 chew 09/29/18 [Rx] Atorvastatin [Lipitor] 40 mg PO DAILY #30 tab 09/29/18 [Rx] Clopidogrel [Plavix] 75 mg PO DAILY #60 tab 09/29/18 [Rx] Furosemide [Lasix] 40 mg PO DAILY #14 tab 09/29/18 [Rx] Losartan Potassium [Cozaar] 100 mg PO DAILY #30 tablet 09/29/18 [Rx] Melatonin 6 mg PO HS #30 tablet 09/29/18 [Rx] Metoprolol Tartrate [Lopressor] 100 mg PO BID #120 tab 09/29/18 [Rx] Pantoprazole [Protonix] 40 mg PO AC-BRKFST #30 tablet. 09/29/18 [Rx] Sennosides-Docusate Sodium [Senokot-S] 2 each PO HS PRN tab 09/29/18 [Rx] amLODIPine [Norvasc] 5 mg PO BID #60 tab 09/29/18 [Rx] metFORMIN HCL [Glucophage] 1,000 mg PO BID #120 tab 09/29/18 [Rx] Follow up Appointment(s)/Referral(s): Frank Canchola MD [STAFF PHYSICIAN] - 10/19/18 2:30 pm Ree Gonzalez NPC [Nurse Practitioner] - 10/05/18 1:00 pm Eitan Peters MD [STAFF PHYSICIAN] - 10/07/18 1:45 pm Chito Henderson MD [Primary Care Provider] - 10/28/18 8:45 am Diomedes Rodríguez MD [STAFF PHYSICIAN] - 10/27/18 1:00 pm [facility], [NON-STAFF] - Ambulatory/Diagnostic Orders: Complete Blood Count w/diff [LAB.AMB] Time Frame: 3 Days, Location: None Selected Comprehensive Metabolic Panel [LAB.AMB] Time Frame: 3 Days, Location: None Selected Activity/Diet/Wound Care/Special Instructions: DISCHARGE INSTRUCTIONS: 1. No driving for 4 weeks, or until physician gives their ok. 2. The patient should sleep in their own bed, no medical bed needed. 3. Stairs are not an issue. If the bedroom is upstairs, it is advised that the patient go up at night and down in the morning for the first week. Go slowly, using handrail and take 1 step at a time. 4. RAJESH hose are to be worn for 30 days or until physician discontinues. 5. Heart hugger is to be worn 100% of the time until physician discontinues.( except when showering) 6. No lifting, pushing, or pulling more than 10 pounds for 12 weeks. The physician will advise of any restriction changes. 7. The patient is expected to continue the prescribed walking program. 8. Continue pain control per as needed orders. 9. Continue with incentive spirometry and splinting/heart hugger until otherwise directed by the physician. 10. Must shower daily using liquid antibacterial soap and a separate white washcloth for each individual incision. 11. Routine sternal incision care. No powders, lotions, ointments on incisions. 12. Please call surgeon/DATA SYSTEMS ANALYST for temp greater than 101 F or purulent drainage from incisions. 13. All prescriptions given by surgeon for 30 days. Refills need to be filled through energy consultant/primary care physician. 14. A Red armband has been placed on the patient. It should be worn for 30 days post surgery and will be removed by the cardiac surgeons. If an ER visit is necessary, please make sure the number on the Red armband is called. HOME HEALTH SERVICES TO PROVIDE: RN SKILLED HOME CARE SERVICES FOR POST-OP SURGICAL PATIENTS WITH THE FOLLOWING: Coronary Artery Bypass Surgery (CABG), Mitral Valve Replacement/ Repair ( MVR), Aortic Valve Replacement/Repair (AVR) RN TO CONTINUE EDUCATION FROM ``RO[facility] TO [facility] PATIENT EDUCATION MANUAL (GIVEN TO PATIENT IN THE HOSPITAL) MEDICATION RECONCILIATION WITH EDUCATION NEEDED ON FIRST HOME VISIT EMPHASIZE IMPORTANCE OF WEARING BREAST SUPPORT/HEART HUGGER ENCOURAGE USE OF INCENTIVE SPIROMETER 10 X EVERY HOUR WHILE AWAKE ENCOURAGE UTILIZATION OF LOWER EXTREMITY COMPRESSION STOCKINGS/RAJESH HOSE and ELEVATE LEGS ABOVE LEVEL OF HEART WHILE AT REST. ENCOURAGE AMBULATION 3-5x/day INCREASING TOLERATES, WHILE AVOID EXTREMES IN TEMPERATURE FREQUENCY: RN TO OPEN THE PATIENT WITHIN 24 HOURS OF DISCHARGE FROM THE HOSPITAL WITH TELEHEALTH INSTALLED AT [facility], RN TO VISIT 2-3 X A WEEK FOR 4 WEEKS ESTABLISHED BY PATIENT NEEDS. LABORATORY: CBC, CMP TO BE DRAWN ON THE THIRD DAY HOME, 10/02/2018 (RAN STAT) FAX RESULTS TO [phone]. TELEHEALTH PARAMETERS: WEIGHT: NOTIFY MD OF WEIGHT GAIN OF 2 LBS IN 24 HOURS OR 5 LBS IN ONE WEEK HR: NOTIFY MD OF HR <55 BPM OR HR>100 BPM BP: NOTIFY MD IF BP <90/55 OR BP>140/100 O2 SAT: NOTIFY MD IF PO2<93% ON ROOM AIR SEND TELEHEALTH REPORT TO PERSONNEL PSYCHOLOGIST AND CARDIOVASCULAR SURGEON THE FIRST WEEK OF CARE AND THEN BI-WEEKLY. PLEASE ADDITIONALLY COMMUNICATE ANY ABNORMALS AND NEW FINDINGS TO THE SURGEONS OFFICE. Discharge Disposition: HOME WITH HOME HEALTH SERVICES
[2018-09-29 12:09] LABS: Glucose,Whole Blood 116 mg/dL (75-99)
[2018-09-29] MEDS: LOSARTAN 50 MG TAB PO SCH (12:35)
[2018-09-29 13:16] VITALS: BP 141/104; PULSE 109; TEMP 98.1
[2018-09-29 13:21] VITALS: RESP 18
--- NOTE | 2018-09-29 14:40 | PN ---
PROGRESS NOTE Mr. De Anda is status post bypass surgery. He is doing better. He is in atrial fib, rate control is fair. Plan is to continue rate control, increase activity, discharge him and have him see Dr. Peters in about a week or two. Patient is on Eliquis. His rate control is fairly decent, even with activity. Heart rate is in the high 90s or low 100s. S1-S2 heard normally with irregular rhythm. Lungs reveal improved air entry. Abdomen and lower extremity exam unchanged. Patient can be discharged today. MMODL / IJN: [id number] /
[2018-09-29 15:34] VITALS: BMI 40.4
== END 2018-09-29 15:34 | disposition home health service (06) | DRG 236 ==
LOC: 2ORMAIN 05:31 → 2SICU 16:22
PROVIDERS: ADMIT Thoracic Surgery (Cardiothoracic Vascular Surgery); ATTEND Thoracic Surgery (Cardiothoracic Vascular Surgery)
PROC: 02110AW Bypass Coronary Artery, Two Arteries from Aorta with Autologous Arterial Tissue, Open Approach (ICD-10-PCS; principal; 2018-09-23 08:00)
PROC: 06BP4ZZ Excision of Right Saphenous Vein, Percutaneous Endoscopic Approach (ICD-10-PCS; principal; 2018-09-23 08:00)
PROC: B246ZZ4 Ultrasonography of Right and Left Heart, Transesophageal (ICD-10-PCS; principal; 2018-09-23 08:00)
PROC: 03BC4ZZ Excision of Left Radial Artery, Percutaneous Endoscopic Approach (ICD-10-PCS; principal; 2018-09-23 08:00)
PROC: 021209W Bypass Coronary Artery, Three Arteries from Aorta with Autologous Venous Tissue, Open Approach (ICD-10-PCS; principal; 2018-09-23 08:00)
DX: I25.710 Atherosclerosis of autologous vein coronary artery bypass graft(s) with unstable angina pectoris (principal); I25.110 Atherosclerotic heart disease of native coronary artery with unstable angina pectoris; J90 Pleural effusion, not elsewhere classified; J98.11 Atelectasis; Z68.41 Body mass index [BMI] 40.0-44.9, adult; E11.51 Type 2 diabetes mellitus with diabetic peripheral angiopathy without gangrene; E66.01 Morbid (severe) obesity due to excess calories; E78.00 Pure hypercholesterolemia, unspecified; E78.5 Hyperlipidemia, unspecified; E87.70 Fluid overload, unspecified; F17.201 Nicotine dependence, unspecified, in remission; G47.33 Obstructive sleep apnea (adult) (pediatric); I10 Essential (primary) hypertension; I25.82 Chronic total occlusion of coronary artery; I48.0 Paroxysmal atrial fibrillation; J45.909 Unspecified asthma, uncomplicated; Z79.01 Long term (current) use of anticoagulants; Z79.82 Long term (current) use of aspirin; Z79.84 Long term (current) use of oral hypoglycemic drugs; Z79.899 Other long term (current) drug therapy; Z82.49 Family history of ischemic heart disease and other diseases of the circulatory system; Z90.81 Acquired absence of spleen; E11.65 Type 2 diabetes mellitus with hyperglycemia
CPT/HCPCS: 71045; 71046; 80053; 82330; 82805; 83735; 84100; 85025; 85027; 85520; 85610; 85730; 86850; 86891; 86900; 86901; 86920; 94003; 94640; 94760

== ENCOUNTER → 2018-12-26 | Outpatient (CLI) | payer MEDICARE ==
--- NOTE | 2018-12-26 10:27 | FL ---
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 TECHNIQUE: Real-time fluoroscopy of the diaphragm during normal respiration, deep breathing, and snif fing maneuver. Total fluoroscopy time: 48 seconds. Total images: 7. FINDINGS: There is abnormal asymmetric elevation of the left hemidiaphragm with poor excursion and movement dur ing quiet breathing and deep respirations. Absent movement and slight paradoxical motion of the left hemidiaphragm is noted with sniffing maneuver. There is normal motion of the right hemidiaphragm. 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
== END ==
LOC: RADFLWHC 09:13
PROVIDERS: ATTEND Internal Medicine
DX: J98.6 Disorders of diaphragm (principal)
CPT/HCPCS: 76000

== ENCOUNTER → 2021-11-28 | Outpatient (CLI) | payer MEDICARE ==
--- NOTE | 2021-11-28 16:52 | US ---
EXAMINATION TYPE: US kidneys/renal and bladder DATE OF EXAM: 11/28/2021 COMPARISON: CT dated 09/16/2018 CLINICAL HISTORY: R31.9 HEMATURIA. 1 episode of hematuria EXAM MEASUREMENTS: Right Kidney: 12.0 x 5.7 x 5.5 cm Left Kidney: 12.5 x 6.1 x 5.0 cm Right Kidney: prominent renal pelvis. cystic area lower pole = 2.5 x 2.5 x 2.2cm Left Kidney: possible stone lower pole = 0.8cm. cystic area = 2.1 x 2.0 x 1.9cm Bladder: appears wnl Bilateral Jets seen: no Suspected 8 mm left lower pole nonobstructing renal calculus. Bilateral renal cysts without suspiciou s features. No definite hydronephrosis bilaterally. Ureteric jets were not seen at the time of the ul trasound. Grossly unremarkable urinary bladder. IMPRESSION: Suspected 8 mm left lower pole nonobstructing renal calculus. No definite suspicious renal or urinary bladder lesion identified. Further CT urogram assessment can be considered if clinically required.
== END | disposition home or self-care (01) ==
LOC: RADUSWWP 15:28
PROVIDERS: ATTEND Internal Medicine Geriatric Medicine
DX: R31.9 Hematuria, unspecified (principal); N20.0 Calculus of kidney
CPT/HCPCS: 76770

== ENCOUNTER → 2021-12-24 | Outpatient (CLI) | payer MEDICARE ==
--- NOTE | 2021-12-25 11:26 | CT ---
CT urogram with and without contrast HISTORY: Gross hematuria, R 31.0 Helical acquisition obtained pre- and postadministration of contrast through the abdomen, patient rec eived 100 cc [id number]-300 IV. Three-dimensional reconstructions performed on an alternate workstation a nd reviewed. Automated exposure control for dose reduction. DLP 8329.8 mGycentimeters Correlation to ultrasound 11/28/2021, CT 09/16/2018 There is a nonobstructive renal calculus present within the right kidney midpole measuring 7 to 8 mm. There are 2 nonobstructive calculi within the left kidney at the upper pole, the left kidney lower p ole there are 3-4 calcifications present, the largest on the left measures approximately 6 mm in grea test dimension. Cortical cysts associated with the right kidney, the larger the 2 measures 3 cm, heaven ical cyst on the left measures 2.3 cm, likely simple cysts. The ureters show normal course and calibe r. No hydronephrosis bilaterally. Urinary bladder shows no definite filling defect. Thickening of the urinary bladder wall could be due to chronic bladder outlet obstruction. Coronary artery calcifications noted. Lung bases show atelect atic change. Prostate is enlarged and shows associated calcification. Dependent high density within the gallbladde r suggests small stones. No evident adrenal mass on the left. Right adrenal mass shows a low dense fo cus measuring 15 mm likely small adenoma. There are changes of splenosis throughout the abdomen. Athe romatous changes are present within the aorta. Degenerative disc changes present in the lower lumbar spine. Left inguinal hernia contains fat. IMPRESSION: Nonobstructive nephrolithiasis is present bilaterally. Cholelithiasis. Possible right adr enal adenoma. Additional findings above.
== END | disposition home or self-care (01) ==
LOC: RADCTMAIN 14:21
PROVIDERS: ATTEND Urology
DX: R31.0 Gross hematuria (principal)
CPT/HCPCS: 82565; 84520; 74178; 36415; 74400; Q9967

== ENCOUNTER 2023-12-16 17:49 | Emergency (ER) | payer MEDICARE ==
--- NOTE | 2023-12-16 18:20 | ED ---
Fall HPI - General Source: patient, family, RN notes reviewed Mode of arrival: ambulatory Limitations: no limitations <Marci Plummer - Last Filed: 12/16/23 18:18> - General Source: patient, family, RN notes reviewed Mode of arrival: ambulatory Limitations: no limitations - History of Present Illness MD Complaint: fall -: hour(s) Fall From: standing When Fall Occurred: unsure Fall Witnessed: no Place Fall Occurred: home Loss of Consciousness: none Prolonged Down Time?: no Symptoms Prior to Fall: none Location: chest Location - Extremities: Right: Hand, Leg Severity: severe Severity scale (1-10): 5 Quality: dull, stabbing Context: tripped/slipped Associated Symptoms: denies <Alli Oconnell - Last Filed: 12/24/23 00:03> - General Stated Complaint: Fall, pain in ribs Time Seen by Provider: 12/16/23 18:18 - History of Present Illness Initial Comments: Quick note: Patient is a 73-year-old male presenting to the ER with chief complaint of a fall. Patient sent here for urgent care for evaluation. Patient states he tripped over the sidewalk landing on his right side. Denies head injury or loss of consciousness. Patient does take Eliquis. He also is endorsing right hand and knee pain and swelling. (Marci Plummer) This is a 73-year-old male to the ER after a fall today. Patient had a trip and fall landing on his right side. Severe back pain right-sided abdominal pain right-sided rib pain and right hand pain. Patient's pain is severe with significant swelling. Patient is on Eliquis which is concerning to me over the amount of swelling that he is having (Alli Oconnell) - Related Data Home Medications Medication Instructions Recorded Confirmed Atorvastatin [Lipitor] 40 mg PO HS 12/23/23 12/23/23 Balance And Nature Fruit 2 tab PO DAILY 12/23/23 12/23/23 Balance And Nature Veggie 2 tab PO DAILY 12/23/23 12/23/23 Cholecalciferol [Vitamin D3 (125 125 mcg PO QAM 12/23/23 12/23/23 Mcg = 5000 Iu)] Clopidogrel [Plavix] 75 mg PO QAM 12/23/23 12/23/23 Doxycycline Hyclate 100 mg PO BID 12/23/23 12/23/23 Furosemide [Lasix] 40 mg PO QAM 12/23/23 12/23/23 Garlic 100 mg PO DAILY 12/23/23 12/23/23 Levothyroxine Sodium [Levoxyl] 100 mcg PO QAM 12/23/23 12/23/23 Losartan Potassium [Cozaar] 100 mg PO QAM 12/23/23 12/23/23 Magnesium Maelate 1 tab PO QAM 12/23/23 12/23/23 Metoprolol Tartrate [Lopressor] 50 mg PO BID 12/23/23 12/23/23 [place] 2 Plus Max 100 mg PO DAILY 12/23/23 12/23/23 Tirzepatide [Mounjaro] 15 mg SQ GARCIA 12/23/23 12/23/23 amLODIPine [Norvasc] 5 mg PO QAM 12/23/23 12/23/23 hydrALAZINE HCL 50 mg PO TID 12/23/23 12/23/23 Previous Rx's Medication Instructions Recorded Apixaban [Eliquis] 5 mg PO BID #60 tab 09/29/18 metFORMIN HCL [Glucophage] 1,000 mg PO BID #120 tab 09/29/18 Allergies Allergy/AdvReac Type Severity Reaction Status Date / Time No Known Allergies Allergy Verified 12/23/23 13:34 Review of Systems ROS Other: All systems not noted in ROS Statement are negative. <Marci Plummer - Last Filed: 12/16/23 18:18> ROS Other: All systems not noted in ROS Statement are negative. <Alli Oconnell - Last Filed: 12/24/23 00:03> ROS Statement: Those systems with pertinent positive or pertinent negative responses have been documented in the HPI. Past Medical History Past Medical History: Coronary Artery Disease (CAD), Diabetes Mellitus, Hyperlipidemia, Hypertension, Sleep Apnea/CPAP/BIPAP Additional Past Medical History / Comment(s): unable to use cpap History of Any Multi-Drug Resistant Organisms: None Reported Past Surgical History: Appendectomy, Coronary Bypass/CABG, Heart Catheterization With Stent, Orthopedic Surgery Additional Past Surgical History / Comment(s): CABG X5, STENTS X2, SPLEENECTOMY AT AGE 7, LYSIS OF ADHESIONS AGE 8, Past Anesthesia/Blood Transfusion Reactions: No Reported Reaction Date of Last Stent Placement:: 2012 Past Psychological History: No Psychological Hx Reported Past Alcohol Use History: Rare Additional Past Alcohol Use History / Comment(s): QUIT SMOKING 1993, SMOKED FROM AGE 18 LESS THAN 1PPD Past Drug Use History: None Reported - Past Family History Brother(s) Family Medical History: Coronary Artery Disease (CAD), Myocardial Infarction ([place]) Additional Family Medical History / Comment(s): CABG <Marci Plummer - Last Filed: 12/16/23 18:18> General Exam <Marci Plummer - Last Filed: 12/16/23 18:18> General appearance: alert, in no apparent distress Head exam: Present: atraumatic, normocephalic, normal inspection Eye exam: Present: normal appearance, PERRL, EOMI. Absent: scleral icterus, conjunctival injection, periorbital swelling ENT exam: Present: normal exam, mucous membranes moist Neck exam: Present: normal inspection. Absent: tenderness, meningismus, lymphadenopathy Respiratory exam: Present: normal lung sounds bilaterally. Absent: respiratory distress, wheezes, rales, rhonchi, stridor Cardiovascular Exam: Present: regular rate, normal rhythm, normal heart sounds. Absent: systolic murmur, diastolic murmur, rubs, gallop, clicks GI/Abdominal exam: Present: soft, normal bowel sounds. Absent: distended, tenderness, guarding, rebound, rigid Extremities exam: Present: normal inspection, full ROM, normal capillary refill. Absent: tenderness, pedal edema, joint swelling, calf tenderness Back exam: Present: normal inspection Neurological exam: Present: alert, oriented X3, CN II-XII intact Psychiatric exam: Present: normal affect, normal mood Skin exam: Present: warm, dry, intact, normal color. Absent: rash <Alli Oconnell - Last Filed: 12/24/23 00:03> - General Exam Comments Initial Comments: Visual Physical Exam Vital signs reviewed General: Well-appearing, nontoxic, no acute distress. Head: Normocephalic, atraumatic Eyes: PERRLA, EOMI ENT: Airway patent Chest: Nonlabored breathing Skin: No visual rash, normal skin tone Neuro: Alert and oriented 3 Musculoskeletal: Edema and discoloration to right hand. Abrasion and edema to right knee (Marci Plummer) Course <Alli Oconnell - Last Filed: 12/24/23 00:03> Vital Signs 12/16/23 12/16/23 18:49 22:23 Temperature 98.1 F Pulse Rate 89 79 Respiratory 18 18 Rate Blood Pressure 175/113 139/100 O2 Sat by Pulse 96 96 Oximetry - Reevaluation(s) Reevaluation #1: 12/16/23 20:37 Medical records reviewed (Alli Oconnell) Reevaluation #2: 12/16/23 20:37 Patient symptoms are improved here in the ER (Alli Oconnell) Reevaluation #3: 12/16/23 20:37 Patient informed of results and questions answered (Alli Oconnell) Reevaluation #4: Was pt. sent in by a medical professional or institution (BOAZ Mulligan, [employer]PERATOR, urgent care, hospital, or intermediate...) When possible be specific @ -no Did you speak to anyone other than the patient for history (EMS, parent, family, police, friend...)? What history was obtained from this source @ -no Did you review nursing and triage notes (agree or disagree)? Why? @ -agree Are old charts reviewed (outside hosp., previous admission, EMS record, old EKG, old radiological studies, urgent care reports/EKG's, intermediate records)? Report findings @ -yes Differential Diagnosis (chest pain, altered mental status, abdominal pain women, abdominal pain men, vaginal bleeding, weakness, fever, dyspnea, syncope, headache, dizziness, GI bleed, back pain, seizure, CVA, palpatations, mental health, musculoskeletal)? @ -prior EKG interpreted by me (3pts min.). @ -yes X-rays interpreted by me (1pt min.). @ -yes negative for acute disease CT interpreted by me (1pt min.). @ -no U/S interpreted by me (1pt. min.). @ -no What testing was considered but not performed or refused? (CT, X-rays, U/S, labs)? Why? @ -none What meds were considered but not given or refused? Why? @ -none Did you discuss the management of the patient with other professionals (professionals i.e. BOAZ Mulligan, [employer] OPERATOR, lab, RT, psych nurse, social service manager, assistant signal maintainer, teacher, project control officer, hospice case manager)? Give summary @ -no Was smoking cessation discussed for >3mins.? @ -no Was critical care preformed (if so, how long)? @ -no Were there social determinants of health that impacted care today? How? (Homelessness, low income, unemployed, alcoholism, drug addiction, transportation, low edu. Level, literacy, decrease access to med. care, [facility], rehab)? @ -none Was there de-escalation of care discussed even if they declined (Discuss DNR or withdrawal of care, Hospice)? DNR status @ -no What co-morbidities impacted this encounter? (DM, HTN, Smoking, COPD, CAD, Cancer, CVA, ARF, Chemo, Hep., AIDS, mental health diagnosis, sleep apnea, morbid obesity)? @ -none Was patient admitted / discharged? Hospital course, mention meds given and route, prescriptions, significant lab abnormalities, going to OR and other pertinent info. @ - 73 male to the ER for evaluation today. Patient has fall with right-sided hand pain and rib pain. No acute traumatic injuries noted. Patient otherwise feels well is concerned as he is on blood thinners. Patient can be discharged home as his pain is controlled Discharge Undiagnosed new problem with uncertain prognosis? @ -no Drug Therapy requiring intensive monitoring for toxicity (Heparin, Nitro, Insulin, Cardizem)? @ -no Were any procedures done? @ -no Diagnosis/symptom? @ -Fall right hand contusion right rib contusion Acute, or Chronic, or Acute on Chronic? @ -Acute Uncomplicated (without systemic symptoms) or Complicated (systemic symptoms)? @ -Complicated Side effects of treatment? @ -no Exacerbation, Progression, or Severe Exacerbation? @ -exacerbation Poses a threat to life or bodily function? How? (Chest pain, [place], [place], pneumonia, PE, COPD, DKA, ARF, appy, cholecystitis, CVA, Diverticulitis, Homicidal, Suicidal, threat to staff... and all critical care pts) @ -yes extremes of age with fall (Alli Oconnell) Medical Decision Making <Marci Plummer - Last Filed: 12/16/23 18:18> - Radiology Data Radiology results: report reviewed (X-ray hand knee chest and ribs is negative for traumatic injury), image reviewed <Alli Oconnell - Last Filed: 12/24/23 00:03> - Medical Decision Making I performed the quick note portion of this chart. Electronically signed by Marci Plummer PA-C (Marci Plummer) 73 male to the ER for evaluation today. Patient has fall with right-sided hand pain and rib pain. No acute traumatic injuries noted. Patient otherwise feels well is concerned as he is on blood thinners. Patient can be discharged home as his pain is controlled (Alli Oconnell) - Lab Data Lab Results 12/16/23 Range/Units 21:08 Urine Color Yellow Urine Appearance Cloudy (Clear) Urine pH 5.5 (5.0-8.0) Ur Specific [place] 1.020 (1.001-1.035) Urine Protein 2+ H (Negative) Urine Glucose (UA) Negative (Negative) Urine Ketones Negative (Negative) Urine Blood Moderate H (Negative) Urine Nitrite Negative (Negative) Urine Bilirubin Negative (Negative) Urine Urobilinogen <2.0 (<2.0) mg/dL Ur Leukocyte Esterase Small H (Negative) Urine RBC >182 H (0-5) /hpf Urine WBC 19 H (0-5) /hpf Urine Mucus Occasional H (None) /hpf Disposition <Marci Plummer - Last Filed: 12/16/23 18:18> Is patient prescribed a controlled substance at d/c from ED?: No Time of Disposition: 21:45 <Alli Oconnell - Last Filed: 12/24/23 00:03> Clinical Impression: Fall, Contusion of right hand, Contusion of rib on right side, Hematuria Disposition: HOME SELF-CARE Condition: Good Instructions (If sedation given, give patient instructions): Fall Prevention for Older Adults (ED), Hematuria (ED), Rib Contusion (ED) Referrals: Chito Henderson MD [Primary Care Provider] - 1-2 days
[2023-12-16 19:00] VITALS: RESP 18; TEMP 98.1
--- NOTE | 2023-12-16 20:38 | XR ---
PROCEDURE: XR knee complete RT - 3V DATE AND TIME: 12/16/2023 8:08 PM CLINICAL INDICATION: PHH; pain s/p fall TECHNIQUE: Department protocol COMPARISON: None FINDINGS: There is no fracture or malalignment. The soft tissues are unremarkable. Relatively mild tr icompartmental osteoarthrosis changes noted, most advanced medial compartment. IMPRESSION: NO ACUTE PROCESS.
--- NOTE | 2023-12-16 20:39 | XR ---
PROCEDURE: XR hand complete RT - 3V DATE AND TIME: 12/16/2023 8:08 PM CLINICAL INDICATION: PHH; pain s/p fall TECHNIQUE: Department protocol COMPARISON: None FINDINGS: There is no fracture or malalignment. The soft tissues are unremarkable. IMPRESSION: NO ACUTE PROCESS.
--- NOTE | 2023-12-16 20:42 | XR ---
PROCEDURE: XR ribs RT w pa chest xray - 5V DATE AND TIME: 12/16/2023 8:08 PM CLINICAL INDICATION: PHH; pain s/p fall TECHNIQUE: Total 5 views COMPARISON: 09/29/2018 FINDINGS: There is no displaced fracture or malalignment. There is no pneumothorax or pleural effusion. Linear band of added opacity at the left lung base likely scar. No definite acute pulmonary process. Sternal sutures and mediastinal clips in mildly enlarged cardiac silhouette redemonstrated. No acute soft tissue findings. IMPRESSION: NO ACUTE PROCESS.
[2023-12-16] MEDS: HYDROmorphone 1 MG/ML 1 ML SYRINGE IM STA (20:44)
[2023-12-16 21:21] LABS: Appearance,Urine Cloudy (Clear); Bilirubin,Urine Negative (Negative); Blood,Urine Moderate (Negative); Color,Urine Yellow; Glucose,Urine (UA) Negative (Negative); Ketones,Urine Negative (Negative); Leukocyte Esterase,Urine Small (Negative); Mucus,Urine Occasional /hpf; Nitrite,Urine Negative (Negative); PH, Urine 5.5 (5.0-8.0); Protein,Urine 2+ (Negative); RBC,Urine >182 /hpf (0-5); Urobilinogen,Urine <2.0 mg/dL (<2.0); WBC,Urine 19 /hpf (0-5)
[2023-12-16] MEDS ORDERED: SODIUM CHLORIDE 0.9% 1,000 ML IV STA (21:24)
[2023-12-16] MEDS ORDERED: MORPHINE SULFATE 4 MG/ML SYRINGE IV STA (21:24)
[2023-12-16] MEDS: traMADol 50 MG STARTER PACK 3 TAB BTL PO STA (22:08)
[2023-12-16] MEDS: DIPH,PERTUS(ACELL)TETVAC-LF 0.5 ML VIAL IM ONE (22:09)
[2023-12-16 22:31] VITALS: BP 139/100; PULSE 79
== END 2023-12-16 22:23 | disposition home or self-care (01) ==
LOC: EC 17:49
DX: S60.221A Contusion of right hand, initial encounter (principal); S20.211A Contusion of right front wall of thorax, initial encounter; R31.9 Hematuria, unspecified; I25.10 Atherosclerotic heart disease of native coronary artery without angina pectoris; E11.9 Type 2 diabetes mellitus without complications; I10 Essential (primary) hypertension; G47.30 Sleep apnea, unspecified; E78.5 Hyperlipidemia, unspecified; Z79.899 Other long term (current) drug therapy; Z79.02 Long term (current) use of antithrombotics/antiplatelets; Z87.891 Personal history of nicotine dependence; Z23 Encounter for immunization; W01.0XXA Fall on same level from slipping, tripping and stumbling without subsequent striking against object, initial encounter; Y92.480 Sidewalk as the place of occurrence of the external cause
CPT/HCPCS: 81001; 71101; 73130; 73562; 90715; 99284; 96372; 90471; J1170

== ENCOUNTER 2023-12-20 15:32 | Emergency (ER) | payer MEDICARE ==
--- NOTE | 2023-12-20 16:41 | ED ---
Male Urogenital HPI - General Source: patient, family, RN notes reviewed Mode of arrival: ambulatory Limitations: no limitations <Marci Plummer - Last Filed: 12/20/23 16:40> <Everton Dunn - Last Filed: 12/20/23 20:56> - General Chief complaint: Urogenital Stated complaint: Blood in urine Time Seen by Provider: 12/20/23 16:40 - History of Present Illness Initial comments: Patient is a 73-year-old male presented to the ER with chief complaint of hematuria. Patient states this started last night. Patient did have a fall recently and is on Eliquis. Patient does have a history of kidney stones. Denies any fevers, chills, nausea, vomiting, abdominal pain or flank pain. (Marci Plummer) Dictation was produced using [employer] dictation software. please excuse any grammatical, word or spelling errors. Chief Complaint: 73-year-old male with gross hematuria History of Present Illness: Patient 73-year-old male presents to the emergency department for gross hematuria. Patient was seen here 4 days ago after a fall. He was told that he had some hematuria. He left AGAINST MEDICAL ADVICE because he did not want to wait due to long waits in the emergency department. Today he was urinating when all of a sudden he noted gross hematuria. Called his primary care doctor and was told to come to the emergency department. Patient denies any retention. He does have some mild right-sided rib pain. Otherwise has no other complaints. He was told to come to the ER in order to develop be evaluated for trauma induced hematuria The ROS documented in this emergency department record has been reviewed and confirmed by me. Those systems with pertinent positive or negative responses have been documented in the HPI. All other systems are other negative and/or noncontributory. (Everton Dunn) - Related Data Home Medications Medication Instructions Recorded Confirmed Cetirizine HCl [Zyrtec] 10 mg PO DAILY PRN 09/15/18 09/23/18 Cholecalciferol [Vitamin D3 (25 1,000 unit PO DAILY 09/15/18 09/23/18 Mcg = 1000 Iu)] Multivitamin [Men's Multi-Vitamin] 1 tab PO DAILY 09/15/18 09/23/18 Mv-Mn/C/Glutamin/Lysin/Bssg708 1 tab PO TID PRN 09/15/18 09/23/18 [Airborne Gummies] Previous Rx's Medication Instructions Recorded Amiodarone [Cordarone] 200 mg PO TID #90 tab 09/29/18 Apixaban [Eliquis] 5 mg PO BID #60 tab 09/29/18 Aspirin 81 mg PO DAILY #30 chew 09/29/18 Atorvastatin [Lipitor] 40 mg PO DAILY #30 tab 09/29/18 Clopidogrel [Plavix] 75 mg PO DAILY #60 tab 09/29/18 Furosemide [Lasix] 40 mg PO DAILY #14 tab 09/29/18 Losartan Potassium [Cozaar] 100 mg PO DAILY #30 tablet 09/29/18 Melatonin 6 mg PO HS #30 tablet 09/29/18 Metoprolol Tartrate [Lopressor] 100 mg PO BID #120 tab 09/29/18 Pantoprazole [Protonix] 40 mg PO AC-BRKFST #30 tablet. 09/29/18 Sennosides-Docusate Sodium 2 each PO HS PRN tab 09/29/18 [Senokot-S] amLODIPine [Norvasc] 5 mg PO BID #60 tab 09/29/18 metFORMIN HCL [Glucophage] 1,000 mg PO BID #120 tab 09/29/18 Allergies Allergy/AdvReac Type Severity Reaction Status Date / Time No Known Allergies Allergy Verified 12/16/23 18:54 Review of Systems ROS Other: All systems not noted in ROS Statement are negative. <Marci Plummer - Last Filed: 12/20/23 16:40> ROS Other: All systems not noted in ROS Statement are negative. <Everton Dunn - Last Filed: 12/20/23 20:56> ROS Statement: Those systems with pertinent positive or pertinent negative responses have been documented in the HPI. Past Medical History Past Medical History: Coronary Artery Disease (CAD), Diabetes Mellitus, Hyperlipidemia, Hypertension, Sleep Apnea/CPAP/BIPAP Additional Past Medical History / Comment(s): unable to use cpap History of Any Multi-Drug Resistant Organisms: None Reported Past Surgical History: Appendectomy, Coronary Bypass/CABG, Heart Catheterization With Stent, Orthopedic Surgery Additional Past Surgical History / Comment(s): CABG X5, STENTS X2, SPLEENECTOMY AT AGE 7, LYSIS OF ADHESIONS AGE 8, Past Anesthesia/Blood Transfusion Reactions: No Reported Reaction Date of Last Stent Placement:: 2012 Past Psychological History: No Psychological Hx Reported Smoking Status: Never smoker Past Alcohol Use History: Rare Past Drug Use History: None Reported - Past Family History Brother(s) Family Medical History: Coronary Artery Disease (CAD), Myocardial Infarction ([place]) Additional Family Medical History / Comment(s): CABG <Marci Plummer - Last Filed: 12/20/23 16:40> General Exam Limitations: no limitations <Marci Plummer - Last Filed: 12/20/23 16:40> <Everton Dunn - Last Filed: 12/20/23 20:56> - General Exam Comments Initial Comments: Visual Physical Exam Vital signs reviewed General: Well-appearing, nontoxic, no acute distress. Head: Normocephalic, atraumatic Eyes: PERRLA, EOMI ENT: Airway patent Chest: Nonlabored breathing Skin: No visual rash, normal skin tone Neuro: Alert and oriented 3 Musculoskeletal: No gross abnormalities (Marci Plummer) PHYSICAL EXAM: General Impression: Alert and oriented x3, not in acute distress HEENT: Normocephalic atraumatic, extra-ocular movements intact, pupils equal and reactive to light bilaterally, mucous membranes moist. Cardiovascular: Heart regular rate and rhythm Chest: Able to complete full sentences, no retractions, no tachypnea Abdomen: abdomen soft, non-tender, non-distended, no organomegaly Musculoskeletal: Pulses present and equal in all extremities, no peripheral e lesvia Motor: no focal deficits noted Neurological: CN II-XII grossly intact, no focal motor or sensory deficits noted Skin: Intact with no visualized rashes Psych: Normal affect and mood (Everton Dunn) Course Vital Signs 12/20/23 16:34 Temperature 97.6 F Pulse Rate 84 Respiratory 16 Rate Blood Pressure 177/88 O2 Sat by Pulse 96 Oximetry Medical Decision Making <Marci Plummer - Last Filed: 12/20/23 16:40> - Lab Data Result diagrams: 12/20/23 17:22 12/20/23 17:22 <Everton Dunn - Last Filed: 12/20/23 20:56> - Medical Decision Making I performed the quick note portion of this chart. Electronically signed by Marci Plummer PA-C (Marci Plummer) Was pt. sent in by a medical professional or institution (BOAZ Mulligan, PAINT TECHNICIAN, urgent care, hospital, or jail...) When possible be specific @ -No Did you speak to anyone other than the patient for history (EMS, parent, family, police, friend...)? What history was obtained from this source @ -No Did you review nursing and triage notes (agree or disagree)? Why? @ -I reviewed and agree with nursing and triage notes Were old charts reviewed (outside hosp., previous admission, EMS record, old EKG, old radiological studies, urgent care reports/EKG's, jail records)? Report findings @ -No old charts were reviewed Differential Diagnosis (chest pain, altered mental status, abdominal pain women, abdominal pain men, vaginal bleeding, musculoskeletal, weakness, fever, dyspnea, syncope, headache, dizziness, GI bleed, back pain, seizure, CVA, palpatations, mental health)? @ -Not applicable EKG interpreted by me (3pts min.). @ -None done X-rays interpreted by me (1pt min.). @ -None done CT interpreted by me (1pt min.). @ -CT of the abdomen pelvis shows no kidney injuries. There does appear to be hydronephrosis along with right-sided nephrolithiasis U/S interpreted by me (1pt. min.). @ -None done What testing was considered but not performed or refused? (CT, X-rays, U/S, labs)? Why? @ -None What meds were considered but not given or refused? Why? @ -None Did you discuss the management of the patient with other professionals (professionals i.e. BOAZ Mulligan, PAINT TECHNICIAN, lab, RT, psych nurse, social work administrator, lieutenant fire fighter, teacher, housing officer, case aide)? Give summary @ -No Was smoking cessation discussed for >3mins.? @ -No Was critical care preformed (if so, how long)? @ -No Were there social determinants of health that impacted care today? How? (Homelessness, low income, unemployed, alcoholism, drug addiction, transportation, low edu. Level, literacy, decrease access to med. care, alf, rehab)? @ -No Was there de-escalation of care discussed even if they declined (Discuss DNR or withdrawal of care, Hospice)? DNR status @ -No What co-morbidities impacted this encounter? (DM, HTN, Smoking, COPD, CAD, Cancer, CVA, ARF, Chemo, Hep., AIDS, mental health diagnosis, sleep apnea, morbid obesity)? @ -None Was patient admitted / discharged? Hospital course, mention meds given and route, prescriptions, significant lab abnormalities, going to OR and other pertinent info. @ -41-year-old male presents emergency department chief complaint of hematuria. Vital signs stable. Physical examination is benign. Patient well-appearing at the bedside. Laboratory evaluation obtained. Blood labs are negative. Greater than 182 red blood cells in the urine. CT imaging negative for renal trauma. Incidentally there is a right-sided nephrolithiasis that is obstructi ng. Patient is not having any nephrolithiasis symptoms at the bedside. Patient discharged told to follow-up with urology. Undiagnosed new problem with uncertain prognosis? @ -No Drug Therapy requiring intensive monitoring for toxicity (Heparin, Nitro, Insulin, Cardizem)? @ -No Were any procedures done? @ -No Diagnosis/symptom? Acute, or Chronic, or Acute on Chronic? Uncomplicated (without systemic symptoms) or Complicated (systemic symptoms)? @ -Hematuria Side effects of treatment? @ -No Exacerbation, Progression, or Severe Exacerbation? @ -No Poses a threat to life or bodily function? How? (Chest pain, [place], [place], pneumonia, PE, COPD, DKA, ARF, appy, cholecystitis, CVA, Diverticulitis, Homicidal, Suicidal, threat to staff... and all critical care pts) @ -No (Everton Dunn) - Lab Data Lab Results 12/20/23 12/20/23 12/20/23 Range/Units 16:53 17:22 17:22 WBC 12.2 H (3.8-10.6) k/uL RBC 4.62 (4.30-5.90) m/uL Hgb 14.0 (13.0-17.5) gm/dL Hct 42.6 (39.0-53.0) % MCV 92.1 (80.0-100.0) fL MCH 30.4 (25.0-35.0) pg MCHC 33.0 (31.0-37.0) g/dL RDW 14.0 (11.5-15.5) % Plt Count 320 (150-450) k/uL MPV 8.0 Neutrophils % 61 % Lymphocytes % 21 % Monocytes % 10 % Eosinophils % 5 % Basophils % 1 % Neutrophils # 7.5 (1.3-7.7) k/uL Lymphocytes # 2.6 (1.0-4.8) k/uL Monocytes # 1.2 H (0-1.0) k/uL Eosinophils # 0.7 (0-0.7) k/uL Basophils # 0.1 (0-0.2) k/uL PT 11.1 (10.0-12.5) sec INR 1.0 (<1.2) APTT 25.1 (22.0-30.0) sec Sodium (137-145) mmol/L Potassium (3.5-5.1) mmol/L Chloride (98-107) mmol/L Carbon Dioxide (22-30) mmol/L Anion Gap mmol/L BUN (9-20) mg/dL Creatinine (0.66-1.25) mg/dL Est GFR (CKD-EPI)AfAm (>60 ml/min/1.73 sqM) Est GFR (CKD-EPI)NonAf (>60 ml/min/1.73 sqM) Glucose (74-99) mg/dL Calcium (8.4-10.2) mg/dL Total Bilirubin (0.2-1.3) mg/dL AST (17-59) U/L ALT (4-49) U/L Alkaline Phosphatase (38-126) U/L Total Protein (6.3-8.2) g/dL Albumin (3.5-5.0) g/dL Urine Color Red Urine Appearance Bloody (Clear) Urine RBC >182 H (0-5) /hpf Urine Mucus Occasional H (None) /hpf Blood Type Blood Type Recheck Bld Type Recheck Status Antibody Screen Spec Expiration Date 12/20/23 12/20/23 Range/Units 17:22 17:46 WBC (3.8-10.6) k/uL RBC (4.30-5.90) m/uL Hgb (13.0-17.5) gm/dL Hct (39.0-53.0) % MCV (80.0-100.0) fL MCH (25.0-35.0) pg MCHC (31.0-37.0) g/dL RDW (11.5-15.5) % Plt Count (150-450) k/uL MPV Neutrophils % % Lymphocytes % % Monocytes % % Eosinophils % % Basophils % % Neutrophils # (1.3-7.7) k/uL Lymphocytes # (1.0-4.8) k/uL Monocytes # (0-1.0) k/uL Eosinophils # (0-0.7) k/uL Basophils # (0-0.2) k/uL PT (10.0-12.5) sec INR (<1.2) APTT (22.0-30.0) sec Sodium 141 (137-145) mmol/L Potassium 3.9 (3.5-5.1) mmol/L Chloride 103 (98-107) mmol/L Carbon Dioxide 26 (22-30) mmol/L Anion Gap 12 mmol/L BUN 22 H (9-20) mg/dL Creatinine 1.11 (0.66-1.25) mg/dL Est GFR (CKD-EPI)AfAm 76 (>60 ml/min/1.73 sqM) Est GFR (CKD-EPI)NonAf 66 (>60 ml/min/1.73 sqM) Glucose 90 (74-99) mg/dL Calcium 10.3 H (8.4-10.2) mg/dL Total Bilirubin 0.8 (0.2-1.3) mg/dL AST 27 (17-59) U/L ALT 31 (4-49) U/L Alkaline Phosphatase 83 (38-126) U/L Total Protein 7.3 (6.3-8.2) g/dL Albumin 4.4 (3.5-5.0) g/dL Urine Color Urine Appearance (Clear) Urine RBC (0-5) /hpf Urine Mucus (None) /hpf Blood Type B Positive Blood Type Recheck B Pos Bld Type Recheck Status No Antibody Screen NEGATIVE Spec Expiration Date 12/23/2023 - 2345 Disposition <Marci Plummer - Last Filed: 12/20/23 16:40> Is patient prescribed a controlled substance at d/c from ED?: No Time of Disposition: 20:45 <Everton Dunn - Last Filed: 12/20/23 20:56> Clinical Impression: Hematuria Disposition: HOME SELF-CARE Condition: Good Instructions (If sedation given, give patient instructions): Hematuria (ED) Referrals: Chase Harvey MD [STAFF PHYSICIAN] - 1-2 days
[2023-12-20 16:53] VITALS: RESP 16; TEMP 97.6
[2023-12-20 17:20] LABS: Mucus,Urine Occasional /hpf; RBC,Urine >182 /hpf (0-5)
[2023-12-20 17:23] LABS: Appearance,Urine Bloody (Clear)
[2023-12-20 17:24] LABS: Color,Urine Red
[2023-12-20 18:03] LABS: Basophils # (A) 0.1 k/uL (0-0.2); Basophils % (A) 1 %; Eosinophils # (A) 0.7 k/uL (0-0.7); Eosinophils % (A) 5 %; HCT 42.6 % (39.0-53.0); Lymphocytes # (A) 2.6 k/uL (1.0-4.8); Lymphocytes % (A) 21 %; MCH 30.4 pg (25.0-35.0); MCV 92.1 fL (80.0-100.0); Monocytes # (A) 1.2 k/uL (0-1.0); Monocytes % (A) 10 %; Neutrophils # (A) 7.5 k/uL (1.3-7.7); Neutrophils % (A) 61 %; Platelet Count 320 k/uL (150-450); RBC 4.62 m/uL (4.30-5.90); WBC 12.2 k/uL (3.8-10.6)
[2023-12-20 18:10] LABS: ALT 31 U/L (4-49); AST 27 U/L (17-59); African American GFR (CKD) 76 (>60 ml/min/1.73 sqM); Albumin 4.4 g/dL (3.5-5.0); Alkaline Phosphatase 83 U/L (38-126); Anion Gap 12 mmol/L; Blood Urea Nitrogen 22 mg/dL (9-20); Calcium 10.3 mg/dL (8.4-10.2); Carbon Dioxide 26 mmol/L (22-30); Chloride 103 mmol/L (98-107); Glucose 90 mg/dL (74-99); Non-African American GFR(CKD) 66 (>60 ml/min/1.73 sqM); Potassium 3.9 mmol/L (3.5-5.1); Sodium 141 mmol/L (137-145); Total Bilirubin 0.8 mg/dL (0.2-1.3); Total Protein 7.3 g/dL (6.3-8.2)
[2023-12-20 18:27] LABS: Partial Thromboplastin Time 25.1 sec (22.0-30.0); Prothrombin Time 11.1 sec (10.0-12.5)
--- NOTE | 2023-12-20 20:12 | CT ---
EXAMINATION TYPE: CT abdomen pelvis w con CT DLP: 3132.1 mGycm, Automated exposure control for dose reduction was used. DATE OF EXAM: 12/20/2023 7:47 PM COMPARISON: CT abdomen pelvis most recent from 12/24/2021. CLINICAL INDICATION:Male, 73 years old with history of hematuria, recent fall; Fall on , michelle turia following. TECHNIQUE: Axial CT abdomen pelvis w con;Sagittal and coronal reformats were created on a separate w orkstation. Contrast used:100ml mL of Isovue 300 with IV Contrast, (none if empty) Oral contrast used: without Oral Contrast (none if empty) FINDINGS: LOWER CHEST: Moderate coronary artery atherosclerosis. Sternotomy wires are present. ABDOMEN LIVER: Unremarkable GALLBLADDER AND BILE DUCTS: Unremarkable. PANCREAS: Unremarkable. 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 ADRENAL GLANDS: Unremarkable. KIDNEYS AND URETERS: Mild right hydronephrosis secondary obstructing 19 mm of the right ureteropelvic junction. Nonobstructing left renal calculi measuring up to 7 mm. Simple appearing bilateral renal c ysts. PELVIS BLADDER: No bladder stones. Mild submucosal fat deposition. REPRODUCTIVE: Unremarkable. ABDOMEN & PELVIS STOMACH AND BOWEL: No evidence of bowel obstruction. PERITONEUM/RETROPERITONEUM: No evidence of pneumoperitoneum or free fluid. VASCULATURE: No evidence of aortic aneurysm. MUSCULOSKELETAL: No acute osseous abnormalities. Mild disc degeneration changes are present throughou t the thoracolumbar spine. Left iliac bone bone island. LYMPH NODES: No gross evidence for lymphadenopathy. SOFT TISSUE/ABDOMINAL WALL: Fat-containing inguinal hernia on the left. IMPRESSION: 1. Mild right hydronephrosis secondary obstructing 9 mm calculus at the ureteropelvic junction. This is a new position compared to 12/24/2021. 2. Additional nonobstructing left renal calculi 3. Moderate atherosclerosis of the coronary arteries. 4. Splenosis in the left upper quadrant.
[2023-12-20 21:31] VITALS: BP 175/106; PULSE 98
== END 2023-12-20 21:04 | disposition home or self-care (01) ==
LOC: EC 15:32
DX: N13.2 Hydronephrosis with renal and ureteral calculous obstruction (principal); I25.10 Atherosclerotic heart disease of native coronary artery without angina pectoris; E11.9 Type 2 diabetes mellitus without complications; I10 Essential (primary) hypertension
CPT/HCPCS: 51798; 36415; 86900; 86901; 80053; 85025; 85610; 85730; 86850; 81001; 74177; 99284; Q9967

== ENCOUNTER 2023-12-28 09:25 | Day surgery (SDC) | payer MEDICARE ==
[~2023-12-28 09:25] MED LIST changes: -ALBUMIN HUMAN 25% 50 ML IV ONE; -ALBUMIN HUMAN 5% 500 ML IVPB ONE; -ASPIRIN 325 MG TAB PO ONE; -ATORVASTATIN 10 MG TAB PO ONE; -CALCIUM CHLORIDE 100 MG/ML 10 ML SYRINGE IV ONE; -CARDIOPLEGIC SOLN (K+ 16 MEQ/L 1,000 ML with SODIUM BICARB (1 MEQ/ML) 20 ML, LIDOCAINE ... PERFUSION ONE; -CEFAZOLIN IVPB ONE; -CHLORHEXIDINE GLUCONATE 15 ML CUP MUCOUS MEM ONE; -CLEVIDIPINE BUTYRATE 25 MG in EMPTY BAG 1 BAG IV ONE; -DILTIAZEM 50 MG in SODIUM CHLORIDE 0.9% 40 ML IV ONE; -HEPARIN SODIUM 1,000 UN/ML (10ML VL) IV ONE; -HEPARIN SODIUM,PORCINE 5,000 UNIT in SODIUM CHLORIDE 0.9% 500 ML 500 ML IV ONE; +HYDROmorphone 0.5 MG/0.5 ML SYRINGE IVP PRN; -INSULIN REGULAR 100 UNIT in SODIUM CHLORIDE 0.9% 100 ML IV ONE; -LACTATED RINGERS 1,000 ML IV ONE; -MAGNESIUM SULFATE MG 500 MG/ML IV ONE; -MANNITOL 25% 12.5 GM/50 ML VIAL IV ONE; -METOPROLOL TARTRATE 12.5 MG TAB PO ONE; +MIDAZOLAM 2 MG/2 ML VIAL IV PRN; -NITROGLYCERIN SL TABS 0.4 MG TAB SUBLINGUAL ONE; -NITROGLYCERIN-D5W PMX 25 MG/250 ML BTL IV ONE; -NITROGLYCERIN-D5W PMX 50 MG in DEXTROSE/WATER 1 250ML.BAG IV ONE; -NOREPINEPHRINE 4 MG in SODIUM CHLORIDE 0.9% 250 ML IV ONE; -PAPAVERINE 360 MG in SODIUM CHLORIDE 0.9% 90 ML IV ONE; -PHENYLEPHRINE 40 MG in SODIUM CHLORIDE 0.9% 250 ML IV ONE; -PHENYLEPHRINE-0.9% NACL SYG 1 MG/10 ML SYRINGE IV ONE; -PROPOFOL 100 ML IV ONE; -PROTAMINE SULFATE 10 MG/ML 25 ML VIAL IV ONE; -PROTAMINE SULFATE 250 MG in EMPTY BAG 1 BAG IV ONE; -SODIUM BICARB 8.4% 50 ML SYR (1 MEQ/ML) IV ONE; -SODIUM CHLORIDE 0.9% 1,000 ML IV ONE; -SODIUM CHLORIDE 0.9% IVPB ONE; -TRANEXAMIC ACID 2,000 MG in SODIUM CHLORIDE 0.9% 180 ML IV ONE; -ceFAZolin 1,000 MG in SODIUM CHLORIDE 0.9% IRRIGATIO 1,000 ML IRRIGATION ONE; -ceFAZolin 3 GM in SODIUM CHLORIDE 0.9% 30 ML IVPB ONE
--- NOTE | 2023-12-28 09:52 | XR ---
EXAMINATION TYPE: XR KUB DATE OF EXAM: 12/28/2023 9:38 AM CLINICAL INDICATION:Male, 73 years old with history of Right Ureteral Stone Left Renal Stone; [facility] hea d bilateral nephrolithiasis. COMPARISON: CT urogram 12/24/2021 TECHNIQUE: One radiographic view of the abdomen was obtained. FINDINGS: The bowel gas pattern is nonspecific without dilated loops of small or large bowel. There i s no evidence for organomegaly or pneumoperitoneum. The osseous structures are intact. An 8 mm calc ulus projects over the right size muscle potentially within the right ureter. Otherwise, the nephroli thiasis identified on the CT urogram from 2021 are not visible. Phleboliths are seen in the pelvis . Fecal material and gas are demonstrated throughout the colon and rectum. IMPRESSION: Possible right urolith
[2023-12-28] MEDS: LACTATED RINGERS 1,000 ML IV SCH (09:58)
[2023-12-28] MEDS: ONDANSETRON 4 MG/2 ML VIAL IVP ONE (10:26)
[2023-12-28] MEDS: DEXAMETHASONE SOD PHOSPHATE 4 MG/ML 1 ML VIAL IV ONE (10:26)
[2023-12-28 10:31] LABS: Glucose,Whole Blood 102 mg/dL (70-110)
--- NOTE | 2023-12-28 11:17 | P.HPIHPCON ---
History of Present Illness H&P Date: 12/28/23 Chief Complaint: Right ureteral stone, left renal stone This is a 73-year-old male with history of a 9 mm right-sided proximal ureteral stone, 7 mm left-sided renal stone. He is having flank pain and gross hematuria secondary to his right-sided ureteral stone. Option of right-sided ureteroscopy with holmium laser was discussed with him, option of ESWL was also discussed. Risk benefit and rationale of each approach was discussed in details. He agreed to proceed with ureteroscopy with holmium laser . of note he also would like to address his left-sided renal stone. Discussed the risk of surgery which includes but not limited to bleeding, infection, injury to the ureter. He understood all the risk and agreed to proceed with bilateral ureteroscopy, holmium laser lithotripsy, stone basketing and stent insertion Consent for Procedure: I have explained the operation/procedure to the patient, including the risks, benefits, side effects, alternative therapies (including not receiving the proposed treatment or service), the likelihood of the patient achieving his/her goals, and potential recuperation problems for the procedure/sedation/analgesia, as well as any blood products, if indicated. I also explained to the patient the risks, benefits and side effects of the alternatives, as well as the risks related to not receiving the proposed procedure, care, treatment, or services. Past Medical History Past Medical History: Atrial Fibrillation, Coronary Artery Disease (CAD), Diabetes Mellitus, Hyperlipidemia, Hypertension, Sleep Apnea/CPAP/BIPAP, Vascular Disorder Additional Past Medical History / Comment(s): Kidney stones bilaterally, unable to use cpap, PAD, SPLENECTOMY/IMMUNOCOMPROMISE, injury L lung "nerve cut" during surgery/decreased function History of Any Multi-Drug Resistant Organisms: None Reported Past Surgical History: Appendectomy, Coronary Bypass/CABG, Heart Catheterization With Stent Additional Past Surgical History / Comment(s): CABG X5 with redo, STENTS X2, SPLENECTOMY AT AGE 7, LYSIS OF ADHESIONS AGE 8 Past Anesthesia/Blood Transfusion Reactions: No Reported Reaction Date of Last Stent Placement:: 2012 Smoking Status: Former smoker - Past Family History Brother(s) Family Medical History: Coronary Artery Disease (CAD), Myocardial Infarction ([place]) Additional Family Medical History / Comment(s): CABG Medications and Allergies Home Medications Medication Instructions Recorded Confirmed Type Apixaban [Eliquis] 5 mg PO BID #60 tab 09/29/18 12/28/23 Rx metFORMIN HCL [Glucophage] 1,000 mg PO BID #120 tab 09/29/18 12/28/23 Rx Atorvastatin [Lipitor] 40 mg PO HS 12/23/23 12/28/23 History Balance And Nature Fruit 2 tab PO DAILY 12/23/23 12/28/23 History Balance And Nature Veggie 2 tab PO DAILY 12/23/23 12/28/23 History Cholecalciferol [Vitamin D3 (125 125 mcg PO QAM 12/23/23 12/28/23 History Mcg = 5000 Iu)] Clopidogrel [Plavix] 75 mg PO QAM 12/23/23 12/28/23 History Doxycycline Hyclate 100 mg PO BID 12/23/23 12/28/23 History Furosemide [Lasix] 40 mg PO QAM 12/23/23 12/28/23 History Garlic 100 mg PO DAILY 12/23/23 12/28/23 History Levothyroxine Sodium [Levoxyl] 100 mcg PO QAM 12/23/23 12/28/23 History Losartan Potassium [Cozaar] 100 mg PO QAM 12/23/23 12/28/23 History Magnesium Maelate 1 tab PO QAM 12/23/23 12/28/23 History Metoprolol Tartrate [Lopressor] 50 mg PO BID 12/23/23 12/28/23 History [place] 2 Plus Max 100 mg PO DAILY 12/23/23 12/28/23 History Tirzepatide [Mounjaro] 15 mg SQ GARCIA 12/23/23 12/28/23 History amLODIPine [Norvasc] 5 mg PO QAM 12/23/23 12/28/23 History hydrALAZINE HCL 50 mg PO TID 12/23/23 12/28/23 History Allergies Allergy/AdvReac Type Severity Reaction Status Date / Time No Known Allergies Allergy Verified 12/28/23 10:23 Surgical - Exam Vital Signs Temp Pulse Resp BP Pulse Ox 97.1 F L 70 16 147/72 96 12/28/23 09:59 12/28/23 09:59 12/28/23 09:59 12/28/23 09:59 12/28/23 09:59 - General no distress, moderate pain - Eyes normal ocular movement, no pale - ENT normal nares, normal mucosa - Respiratory normal expansion, normal respiratory effort - Abdomen Abdomen: soft, non tender - Psychiatric oriented to time, oriented to person, oriented to place Assessment and Plan Assessment: OR for bilateral ureteroscopy, holmium laser lithotripsy, stone basketing and stent insertion
[2023-12-28] MEDS ORDERED: PHENYLEPHRINE-0.9% NACL SYG 1,000 MCG/10 ML SYRINGE ONE (11:18)
[2023-12-28] MEDS ORDERED: ePHEDrine 50 MG/ML 1 ML VIAL ONE (11:18)
[2023-12-28] MEDS ORDERED: PROPOFOL 10 MG/ML 20 ML VIAL IV ONE (11:18)
[2023-12-28] MEDS ORDERED: SUCCINYLCHOLINE CHLORIDE 200 MG/10 ML VIAL IV ONE (11:18)
[2023-12-28] MEDS ORDERED: fentaNYL (PF) 50 MCG/ML 2 ML AMP ONE (11:18)
[2023-12-28] MEDS ORDERED: HYDROmorphone (PF) 1 MG/ML ONE (11:18)
[2023-12-28] MEDS ORDERED: MIDAZOLAM 2 MG/2 ML VIAL ONE (11:18)
[2023-12-28] MEDS ORDERED: WATER FOR INJECTION, STERILE 10 ML VIAL IV ONE (11:18)
[2023-12-28] MEDS: SODIUM CHLORIDE 0.9% 50 ML with ceFAZolin 2,000 MG IV ONE (11:42)
[2023-12-28 13:23] LABS: Glucose,Whole Blood 152 mg/dL (70-110)
--- NOTE | 2023-12-28 13:35 | FL ---
EXAMINATION TYPE: FL guidance operating room DATE OF EXAM: 12/28/2023 HISTORY: Fluoroscopy time Total dose area product (DAP) in uGy*m?, mGy*cm? (or similar): 1.44 IMPRESSION: 1. Fluoroscopy time.
--- NOTE | 2023-12-28 13:37 | P.OP ---
Date of Procedure: 12/28/23 Preoperative Diagnosis: Right ureteral, left renal stone Postoperative Diagnosis: Same Procedure(s) Performed: Cystoscopy, bilateral ureteroscopy, holmium laser lithotripsy, stone basketing and stent insertion Implants: 6 Vietnamese by 26 cm stents left in the bilateral ureter left on a string and taped to the patient penis Anesthesia: WANDA Surgeon: Chase Harvey Estimated Blood Loss (ml): 10 Pathology: other (left ureteral and right renal stone) Condition: stable Disposition: PACU Indications for Procedure: This is a 73-year-old male with history of a 9 mm right-sided proximal ureteral stone, 7 mm left-sided renal stone. He is having flank pain and gross hematuria secondary to his right-sided ureteral stone. Option of right-sided ureteroscopy with holmium laser was discussed with him, option of ESWL was also discussed. Risk benefit and rationale of each approach was discussed in details. He agreed to proceed with ureteroscopy with holmium laser . of note he also would like to address his left-sided renal stone. Discussed the risk of surgery which includes but not limited to bleeding, infection, injury to the ureter. He understood all the risk and agreed to proceed with bilateral ureteroscopy, holmium laser lithotripsy, stone basketing and stent insertion Operative Findings: Right proximal ureteral stone, left-sided lower pole renal stone Description of Procedure: Patient brought to the operating room, general anesthesia was induced. He was prepped and draped in sterile fashion placed in dorsolithotomy position. Cystoscopy through the 21 Vietnamese sheath was inserted per urethra, cystoscopy was performed showed no abnormality within the bladder, bladder was mildly trabeculated, patient had slight enlargement of the prostate but it was not a obstructive.. Attention was then carried to the right ureteral orifice which was intubated with a sensor wire, the wire was advanced under fluoroscopy into the kidney, the stone was seen along the course of the proximal ureter. At this time the access sheath was advanced over the wire and into the proximal ureter distal to the stone. The flexible ureteroscope was inserted through the access sheath, using the holmium laser the stone was dusted, any sizable stone fragments were removed and sent for analysis. Repeat renoscopy showed no sizable stones or injury to the kidney on fluoroscopy there was no radiopaque densities that could be visualized. Pullback ureteroscopy was performed showed no injury to the ureter or any ureteral stones, as ureteroscope was withdrawn and a sensor wire was advanced through. The cystoscope was then reinserted per urethra and advanced into the bladder. Left ureter orifice was intubated with a sensor wire, the wire was advanced under fluoroscopy into the kidney. Next under fluoroscopy and 1113 Vietnamese access sheath was passed over the wire into the proximal ureter. Next a flexible ureteroscope was inserted through the access sheath, renoscopy was performed showed 2 large stones within the lower pole. Using the holmium laser the stones were dusted, sizable stone fragments were removed using the stone basket. Repeat renoscopy showed no sizable fragments or injury to the kidney, on fluoroscopy there was no radiopaque densities. Pullback ureteroscopy was performed showed no injury to the ureter or any ureteral stones, as ureteroscope was withdrawn and a sensor wire was advanced through. Next a ureteral stent was passed over the wire, the proximal curl was visualized on fluoroscopy and the distal curl was visualized using the cystoscope. The stent was left on a string and taped to the patient penis. Next attention was carried to the right stent, the stent was passed over the wire under fluoroscopy a proximal curl was resides on fluoroscopy and the distal curl was visualized using the cystoscope. The stent was also left on a string. Bladder was emptied and in the case. Patient will follow-up in 1 to 2 weeks for stent removal
[2023-12-28 13:42] VITALS: TEMP 97.6
[2023-12-28 15:11] LABS: Glucose,Whole Blood 135 mg/dL (70-110)
[2023-12-28 16:02] VITALS: BP 154/77; PULSE 81; RESP 16
== END 2023-12-28 16:01 | disposition home or self-care (01) ==
LOC: OR 09:25
PROVIDERS: ATTEND Urology
DX: N20.2 Calculus of kidney with calculus of ureter (principal); I48.91 Unspecified atrial fibrillation; I25.10 Atherosclerotic heart disease of native coronary artery without angina pectoris; E11.9 Type 2 diabetes mellitus without complications; E78.5 Hyperlipidemia, unspecified; I10 Essential (primary) hypertension; G47.33 Obstructive sleep apnea (adult) (pediatric); J45.909 Unspecified asthma, uncomplicated; E07.9 Disorder of thyroid, unspecified; Z90.49 Acquired absence of other specified parts of digestive tract; Z95.5 Presence of coronary angioplasty implant and graft; Z87.891 Personal history of nicotine dependence; Z79.899 Other long term (current) drug therapy; Z79.01 Long term (current) use of anticoagulants; Z79.84 Long term (current) use of oral hypoglycemic drugs; Z79.890 Hormone replacement therapy; Z79.02 Long term (current) use of antithrombotics/antiplatelets
CPT/HCPCS: 52356; 82365; 74018; C2625; C1769; J2250; J0330; J1100; J2405; J0690; J3010; J1170; J2704; J2371

== ENCOUNTER 2023-12-29 00:19 | Emergency (ER) | payer MEDICARE ==
[2023-12-29 00:52] VITALS: RESP 18; TEMP 98.6
--- NOTE | 2023-12-29 01:58 | ED ---
Male Urogenital HPI - General Chief complaint: Urogenital Stated complaint: unable to urinate- post-op Source: patient Mode of arrival: ambulatory Limitations: no limitations - History of Present Illness Initial comments: Tate is a pleasant 73-year-old gentleman who presents to the ER today with complaint of inability to urinate. Patient underwent lithotripsy early yesterday morning and had stents placed. Patient states he was able to urinate after the procedure and was able to urinate once or twice at home but since then he has the urge to urinate but has not been able to and reports that when he did put she had a few drops of bloody urine. Patient reports he last urinated 8 hours ago and feels the urge to urinate now but cannot. No history of urinary retention in the past. - Related Data Home Medications Medication Instructions Recorded Confirmed Atorvastatin [Lipitor] 40 mg PO HS 12/23/23 12/28/23 Balance And Nature Fruit 2 tab PO DAILY 12/23/23 12/28/23 Balance And Nature Veggie 2 tab PO DAILY 12/23/23 12/28/23 Cholecalciferol [Vitamin D3 (125 125 mcg PO QAM 12/23/23 12/28/23 Mcg = 5000 Iu)] Clopidogrel [Plavix] 75 mg PO QAM 12/23/23 12/28/23 Doxycycline Hyclate 100 mg PO BID 12/23/23 12/28/23 Furosemide [Lasix] 40 mg PO QAM 12/23/23 12/28/23 Garlic 100 mg PO DAILY 12/23/23 12/28/23 Levothyroxine Sodium [Levoxyl] 100 mcg PO QAM 12/23/23 12/28/23 Losartan Potassium [Cozaar] 100 mg PO QAM 12/23/23 12/28/23 Magnesium Maelate 1 tab PO QAM 12/23/23 12/28/23 Metoprolol Tartrate [Lopressor] 50 mg PO BID 12/23/23 12/28/23 [place] 2 Plus Max 100 mg PO DAILY 12/23/23 12/28/23 Tirzepatide [Mounjaro] 15 mg SQ GARCIA 12/23/23 12/28/23 amLODIPine [Norvasc] 5 mg PO QAM 12/23/23 12/28/23 hydrALAZINE HCL 50 mg PO TID 12/23/23 12/28/23 Previous Rx's Medication Instructions Recorded Apixaban [Eliquis] 5 mg PO BID #60 tab 09/29/18 metFORMIN HCL [Glucophage] 1,000 mg PO BID #120 tab 09/29/18 Cephalexin [Keflex] 500 mg PO Q12HR 3 Days #6 cap 12/28/23 Ketorolac [Toradol] 10 mg PO Q6HR PRN #10 tab 12/28/23 Allergies Allergy/AdvReac Type Severity Reaction Status Date / Time No Known Allergies Allergy Verified 12/28/23 10:23 Review of Systems ROS Statement: Those systems with pertinent positive or pertinent negative responses have been documented in the HPI. ROS Other: All systems not noted in ROS Statement are negative. Past Medical History Past Medical History: Atrial Fibrillation, Coronary Artery Disease (CAD), Diabetes Mellitus, Hyperlipidemia, Hypertension, Sleep Apnea/CPAP/BIPAP, Vascular Disorder Additional Past Medical History / Comment(s): Kidney stones bilaterally, unable to use cpap, PAD, SPLENECTOMY/IMMUNOCOMPROMISE, injury L lung "nerve cut" during surgery/decreased function History of Any Multi-Drug Resistant Organisms: None Reported Past Surgical History: Appendectomy, Coronary Bypass/CABG, Heart Catheterization With Stent Additional Past Surgical History / Comment(s): CABG X5 with redo, STENTS X2, SPLENECTOMY AT AGE 7, LYSIS OF ADHESIONS AGE 8 Past Anesthesia/Blood Transfusion Reactions: No Reported Reaction Date of Last Stent Placement:: 2012 Past Psychological History: No Psychological Hx Reported Smoking Status: Former smoker Past Alcohol Use History: None Reported Past Drug Use History: None Reported - Past Family History Brother(s) Family Medical History: Coronary Artery Disease (CAD), Myocardial Infarction ([place]) Additional Family Medical History / Comment(s): CABG General Exam - General Exam Comments Initial Comments: Physical Exam GENERAL: Patient is well-developed and well-nourished. Patient is nontoxic and well-hydrated and is in no distress. HENT: Normocephalic, Atraumatic. EYES: PERRL, EOMI PULMONARY: Unlabored respirations. CARDIOVASCULAR: RRR Warm and well perfused extremities ABDOMEN: Tenderness to palpation in the suprapubic region SKIN: Bruising noted on right lower abdomen : NEUROLOGIC: Alert and oriented Normal speech Normal gait MUSCULOSKELETAL: Moving all extremities with no apparent injury PSYCHIATRIC: No SI/HI Limitations: no limitations Course Vital Signs 12/29/23 00:32 Temperature 98.6 F Pulse Rate 91 Respiratory 18 Rate Blood Pressure 158/94 O2 Sat by Pulse 96 Oximetry Medical Decision Making - Medical Decision Making Was pt. sent in by a medical professional or institution (BOAZ Mulligan, MEDICAL STAFF SERVICES MANAGER, urgent care, hospital, or [place] health care facility...) When possible be specific @ -Yes urology office advised to come to the ER Did you speak to anyone other than the patient for history (EMS, parent, family, police, friend...)? What history was obtained from this source @ - Did you review nursing and triage notes (agree or disagree)? Why? @ -I reviewed and agree with nursing and triage notes Were old charts reviewed (outside hosp., previous admission, EMS record, old E KG, old radiological studies, urgent care reports/EKG's, [place] health care facility records)? Report findings @ -Operative notes from yesterday were reviewed Differential Diagnosis (chest pain, altered mental status, abdominal pain women, abdominal pain men, vaginal bleeding, weakness, fever, dyspnea, syncope, headache, dizziness, GI bleed, back pain, seizure, CVA, palpatations, mental health)? @ -Differential includes bladder spasm, reaction to anesthesia, blood clot causing obstruction, idiopathic urinary retention, prostatic hypertrophy EKG interpreted by me (3pts min.). @ -As above X-rays interpreted by me (1pt min.). @ -None done CT interpreted by me (1pt min.). @ -None done U/S interpreted by me (1pt. min.). @ -None done What testing was considered but not performed or refused? (CT, X-rays, U/S, labs)? Why? @ -None What meds were considered but not given or refused? Why? @ -None Did you discuss the management of the patient with other professionals (professionals i.e. BOAZ Mulligan, MEDICAL STAFF SERVICES MANAGER, lab, RT, psych nurse, manager social responsibility, pipe fitter soft copper, teacher, third officer, residential case manager)? Give summary @ -No Was smoking cessation discussed for >3mins.? @ -No Was critical care preformed (if so, how long)? @ -No Were there social determinants of health that impacted care today? How? (Homelessness, low income, unemployed, alcoholism, drug addiction, transportation, low edu. Level, literacy, decrease access to med. care, [facility], rehab)? @ -No Was there de-escalation of care discussed even if they declined (Discuss DNR or withdrawal of care, Hospice)? DNR status @ -No What co-morbidities impacted this encounter? (DM, HTN, Smoking, COPD, CAD, Cancer, CVA, ARF, Chemo, Hep., AIDS, mental health diagnosis, sleep apnea, morbid obesity)? @ -None Was patient admitted / discharged? Hospital course, mention meds given and route, prescriptions, significant lab abnormalities, going to OR and other pertinent info. @Discharged Patient was seen and evaluated, patient with acute urinary retention after l ithotripsy procedure. Cortez catheter was placed and irrigation was attempted however despite putting fluid in the bladder it was not draining there was concern that the clot may be causing an acute occlusion therefore Cortez was exchanged for three-way catheter and patient was irrigated. Large clot was removed. Patient was irrigated till clear. No active bleeding noted. Patient discharged home with Cortez catheter in place. Urinalysis was concerning for possible UTI but patient is on antibiotics that were started earlier in the day by her urologist. Undiagnosed new problem with uncertain prognosis? @ -No Drug Therapy requiring intensive monitoring for toxicity (Heparin, Nitro, Insulin, Cardizem)? @ -No Were any procedures done? @ -No Diagnosis/symptom? @ -Acute urinary retention Acute, or Chronic, or Acute on Chronic? @ -Acute Uncomplicated (without systemic symptoms) or Complicated (systemic symptoms)? @ -Default Side effects of treatment? @ -No Exacerbation, Progression, or Severe Exacerbation? @ -No Poses a threat to life or bodily function? How? (Chest pain, [place], [place], pneumonia, PE, COPD, DKA, ARF, appy, cholecystitis, CVA, Diverticulitis, Homicidal, Suicidal, threat to staff... and all critical care pts) @ -Unlikely - Lab Data Lab Results 12/29/23 Range/Units 03:18 Urine Color Red Urine Appearance Cloudy (Clear) Urine pH 6.0 (5.0-8.0) Ur Specific [place] 1.017 (1.001-1.035) Urine Protein 2+ H (Negative) Urine Glucose (UA) Negative (Negative) Urine Ketones Negative (Negative) Urine Blood Large H (Negative) Urine Nitrite Negative (Negative) Urine Bilirubin Negative (Negative) Urine Urobilinogen <2.0 (<2.0) mg/dL Ur Leukocyte Esterase Large H (Negative) Urine RBC >182 H (0-5) /hpf Urine WBC >182 H (0-5) /hpf Urine Bacteria Moderate H (None) /hpf Hyaline Casts 59 H (0-2) /lpf Urine Mucus Occasional H (None) /hpf Disposition Clinical Impression: Urinary retention Disposition: HOME SELF-CARE Condition: Stable Instructions (If sedation given, give patient instructions): Urinary Tract Infection in Men (ED) Additional Instructions: Continue antibiotics prescribed by urologist, follow up with urology as planned Is patient prescribed a controlled substance at d/c from ED?: No Referrals: Chito Henderson MD [Primary Care Provider] - 1-2 days
[2023-12-29] MEDS: LIDOCAINE 2% URO-JET JELLY 5 ML KIT URETHRAL ONE (03:34)
[2023-12-29 03:37] LABS: Appearance,Urine Cloudy (Clear); Bacteria,Urine Moderate /hpf; Bilirubin,Urine Negative (Negative); Blood,Urine Large (Negative); Color,Urine Red; Glucose,Urine (UA) Negative (Negative); Hyaline Casts,Urine 59 /lpf (0-2); Ketones,Urine Negative (Negative); Leukocyte Esterase,Urine Large (Negative); Mucus,Urine Occasional /hpf; Nitrite,Urine Negative (Negative); Protein,Urine 2+ (Negative); RBC,Urine >182 /hpf (0-5); Specific Gravity,Urine 1.017 (1.001-1.035); Urobilinogen,Urine <2.0 mg/dL (<2.0); WBC,Urine >182 /hpf (0-5)
[2023-12-29] MEDS: SODIUM CHLORIDE 0.9% IRRIG 3,000 ML BAG IRRIGATION STA (05:14)
[2023-12-29 05:58] VITALS: BP 140/85; PULSE 74
== END 2023-12-29 05:52 | disposition home or self-care (01) ==
LOC: EC 00:19
DX: R33.9 Retention of urine, unspecified (principal); Z87.891 Personal history of nicotine dependence
CPT/HCPCS: 51702; 81001; 87086; 99284

== ENCOUNTER 2023-12-31 05:39 | Emergency (ER) | payer MEDICARE ==
--- NOTE | 2023-12-31 05:42 | ED ---
Recheck HPI <Anthony Knight - Last Filed: 12/31/23 14:19> - General Source: RN notes reviewed, old records reviewed Mode of arrival: ambulatory Limitations: no limitations - History of Present Illness MD Complaint: other (Reevaluation of Cortez catheter) -: hour(s) Returns Today for: persistent/worsening pain related to initial visit Symptoms Since Prior Visit: worsening pain Associated Symptoms: nausea, abdominal pain Treatments Prior to Arrival: other (Cortez catheter was placed but does appear to not be working) <Alli Oconnell - Last Filed: 12/31/23 23:44> - General Stated Complaint: Cath issues Time Seen by Provider: 12/31/23 05:42 - History of Present Illness Initial Comments: This is a 73-year-old male to the ER for evaluation patient presents with three- way Cortez patient presents for recent evaluation of urinary retention, patient has significant amount of abdominal pain and has not noticed urinary catheter to be working this morning, pain is severe (Alli Oconnell) - Related Data Home Medications Medication Instructions Recorded Confirmed Atorvastatin [Lipitor] 40 mg PO HS 12/23/23 12/28/23 Balance And Nature Fruit 2 tab PO DAILY 12/23/23 12/28/23 Balance And Nature Veggie 2 tab PO DAILY 12/23/23 12/28/23 Cholecalciferol [Vitamin D3 (125 125 mcg PO QAM 12/23/23 12/28/23 Mcg = 5000 Iu)] Clopidogrel [Plavix] 75 mg PO QAM 12/23/23 12/28/23 Doxycycline Hyclate 100 mg PO BID 12/23/23 12/28/23 Furosemide [Lasix] 40 mg PO QAM 12/23/23 12/28/23 Garlic 100 mg PO DAILY 12/23/23 12/28/23 Levothyroxine Sodium [Levoxyl] 100 mcg PO QAM 12/23/23 12/28/23 Losartan Potassium [Cozaar] 100 mg PO QAM 12/23/23 12/28/23 Magnesium Maelate 1 tab PO QAM 12/23/23 12/28/23 Metoprolol Tartrate [Lopressor] 50 mg PO BID 12/23/23 12/28/23 [place] 2 Plus Max 100 mg PO DAILY 12/23/23 12/28/23 Tirzepatide [Mounjaro] 15 mg SQ GARCIA 12/23/23 12/28/23 amLODIPine [Norvasc] 5 mg PO QAM 12/23/23 12/28/23 hydrALAZINE HCL 50 mg PO TID 12/23/23 12/28/23 Previous Rx's Medication Instructions Recorded Apixaban [Eliquis] 5 mg PO BID #60 tab 09/29/18 metFORMIN HCL [Glucophage] 1,000 mg PO BID #120 tab 09/29/18 Cephalexin [Keflex] 500 mg PO Q12HR 3 Days #6 cap 12/28/23 Ketorolac [Toradol] 10 mg PO Q6HR PRN #10 tab 12/28/23 Cephalexin [Keflex] 500 mg PO Q12HR 5 Days #10 cap 12/31/23 Allergies Allergy/AdvReac Type Severity Reaction Status Date / Time No Known Allergies Allergy Verified 12/31/23 05:44 Review of Systems ROS Other: All systems not noted in ROS Statement are negative. <Anthony Knight - Last Filed: 12/31/23 14:19> ROS Other: All systems not noted in ROS Statement are negative. <Alli Oconnell - Last Filed: 12/31/23 23:44> ROS Statement: Those systems with pertinent positive or pertinent negative responses have been documented in the HPI. Past Medical History Past Medical History: Atrial Fibrillation, Coronary Artery Disease (CAD), Diabetes Mellitus, Hyperlipidemia, Hypertension, Sleep Apnea/CPAP/BIPAP, Vascular Disorder Additional Past Medical History / Comment(s): Kidney stones bilaterally, unable to use cpap, PAD, SPLENECTOMY/IMMUNOCOMPROMISE, injury L lung "nerve cut" during surgery/decreased function History of Any Multi-Drug Resistant Organisms: None Reported Past Surgical History: Appendectomy, Coronary Bypass/CABG, Heart Catheterization With Stent Additional Past Surgical History / Comment(s): CABG X5 with redo, STENTS X2, SPLENECTOMY AT AGE 7, LYSIS OF ADHESIONS AGE 8 Past Anesthesia/Blood Transfusion Reactions: No Reported Reaction Date of Last Stent Placement:: 2012 Past Psychological History: No Psychological Hx Reported Smoking Status: Former smoker Past Alcohol Use History: None Reported Past Drug Use History: None Reported - Past Family History Brother(s) Family Medical History: Coronary Artery Disease (CAD), Myocardial Infarction ([place]) Additional Family Medical History / Comment(s): CABG <Alli Oconnell - Last Filed: 12/31/23 23:44> General Exam General appearance: alert, in no apparent distress, anxious Head exam: Present: atraumatic, normocephalic, normal inspection Eye exam: Present: normal appearance, PERRL, EOMI. Absent: scleral icterus, conjunctival injection, periorbital swelling ENT exam: Present: normal exam, mucous membranes moist Neck exam: Present: normal inspection. Absent: tenderness, meningismus, lymphadenopathy Respiratory exam: Present: normal lung sounds bilaterally. Absent: respiratory distress, wheezes, rales, rhonchi, stridor Cardiovascular Exam: Present: regular rate, normal rhythm, normal heart sounds. Absent: systolic murmur, diastolic murmur, rubs, gallop, clicks GI/Abdominal exam: Present: soft, normal bowel sounds. Absent: distended, tenderness, guarding, rebound, rigid Extremities exam: Present: normal inspection, full ROM, normal capillary refill. Absent: tenderness, pedal edema, joint swelling, calf tenderness Back exam: Present: normal inspection Neurological exam: Present: alert, oriented X3, CN II-XII intact Psychiatric exam: Present: normal affect, normal mood Skin exam: Present: warm, dry, intact, normal color. Absent: rash <Alli Oconnell - Last Filed: 12/31/23 23:44> Course <Alli Oconnell - Last Filed: 12/31/23 23:44> Vital Signs 12/31/23 12/31/23 05:43 10:51 Temperature 97.8 F Pulse Rate 83 84 Respiratory 18 18 Rate Blood Pressure 165/90 160/88 O2 Sat by Pulse 97 97 Oximetry - Reevaluation(s) Reevaluation #1: 12/31/23 06:31 Medical records reviewed (Alli Oconnell) Reevaluation #2: 12/31/23 06:32 Cortez catheter is difficult to get adequate flow, catheter is replaced with no improvement (Alli Oconnell) Reevaluation #3: Patient informed of results and questions answered (Alli Oconnell) Reevaluation #4: Was pt. sent in by a medical professional or institution (, [place], WINE FERMENTER, urgent care, hospital, or skilled nursing...) When possible be specific @ -no Did you speak to anyone other than the patient for history (EMS, parent, family, police, friend...)? What history was obtained from this source @ -no Did you review nursing and triage notes (agree or disagree)? Why? @ -agree Are old charts reviewed (outside hosp., previous admission, EMS record, old EKG, old radiological studies, urgent care reports/EKG's, skilled nursing records)? Report findings @ -yes Differential Diagnosis (chest pain, altered mental status, abdominal pain women, abdominal pain men, vaginal bleeding, weakness, fever, dyspnea, syncope, headache, dizziness, GI bleed, back pain, seizure, CVA, palpatations, mental health, musculoskeletal)? @ -prior EKG interpreted by me (3pts min.). @ -no X-rays interpreted by me (1pt min.). @ -no CT interpreted by me (1pt min.). @ -Yes negative for acute disease adequate placement of Cortez U/S interpreted by me (1pt. min.). @ -no What testing was considered but not performed or refused? (CT, X-rays, U/S, labs)? Why? @ -none What meds were considered but not given or refused? Why? @ -none Did you discuss the management of the patient with other professionals (professionals i.e. , BOAZ, WINE FERMENTER, lab, RT, psych nurse, social scientist, heavy forging machine operator, teacher, fire officer, special education case manager)? Give summary @ -no Was smoking cessation discussed for >3mins.? @ -no Was critical care preformed (if so, how long)? @ -no Were there social determinants of health that impacted care today? How? (Homelessness, low income, unemployed, alcoholism, drug addiction, transportation, low edu. Level, literacy, decrease access to med. care, [facility], rehab)? @ -none Was there de-escalation of care discussed even if they declined (Discuss DNR or withdrawal of care, Hospice)? DNR status @ -no What co-morbidities impacted this encounter? (DM, HTN, Smoking, COPD, CAD, Canc er, CVA, ARF, Chemo, Hep., AIDS, mental health diagnosis, sleep apnea, morbid obesity)? @ -none Was patient admitted / discharged? Hospital course, mention meds given and route, prescriptions, significant lab abnormalities, going to OR and other pertinent info. @ - 73 male who had difficulty with urination Cortez was placed with no significant urinary output. Patient did have imaging for evaluation of placement of Cortez which does appear to be appropriate. Patient can be discharged Discharge Undiagnosed new problem with uncertain prognosis? @ -no Drug Therapy requiring intensive monitoring for toxicity (Heparin, Nitro, Insulin, Cardizem)? @ -no Were any procedures done? @ -Cortez catheter was placed by myself twice Diagnosis/symptom? @ -Urinary retention, Cortez catheter placement Acute, or Chronic, or Acute on Chronic? @ -Acute Uncomplicated (without systemic symptoms) or Complicated (systemic symptoms)? @ -Complicated Side effects of treatment? @ -no Exacerbation, Progression, or Severe Exacerbation? @ -exacerbation Poses a threat to life or bodily function? How? (Chest pain, [place], [place], pneumonia, PE, COPD, DKA, ARF, appy, cholecystitis, CVA, Diverticulitis, Homicidal, Sabrina cidal, threat to staff... and all critical care pts) @ no (Alli Oconnell) Reevaluation #5: Differential Abdominal Pain Men: Appendicitis, cholecystitis, diverticulosis, ischemic bowel, pancreatitis, hepatitis, UTI, gastroenteritis, AAA, incarcerated hernia, bowel obstruction, constipation, inflammatory bowel, hepatitis, peptic ulcer disease, splenic i nfarction, perforated viscus, testicular torsion, this is not meant to be an all-inclusive list (Alli Oconnell) Procedures - Catheter Insertion (Urinary) Indications: replaced: fell out/removed/no longer functioning, monitor urine output, to alleviate urinary retention, bladder irrigation Prophylactic Antibiotics Given: No Bladder Scan/US before Catheterization: No Type of Catheter Inserted: coude tip Catheter Balloon Size (mLs): 10 Topical Anesthesia Used: Yes Results: successfully catheterized-immediate flow, retried with smaller/different catheter (placed larger catheter), urine sent for UA/ C&S Patient Tolerated Procedure: well Complications: bloody urine, pain <Alli Oconnell - Last Filed: 12/31/23 23:44> Medical Decision Making <Anthony Knight - Last Filed: 12/31/23 14:19> - Radiology Data Radiology results: report reviewed (CT abdomen pelvis shows positive Cortez placement with no significant urinary retention), image reviewed <Alli Oconnell - Last Filed: 12/31/23 23:44> - Medical Decision Making Patient signed out to me pending reevaluation and results of CT imaging. Briefly, patient recently had lithotripsy on December 27. On December 28 a Cortez catheter was placed in our emergency department for urinary retention. Returned last night for further urinary retention. New Cortez's were placed and irrigated. CT imaging was obtained to evaluate the stent placement as well as Cortez placement. Patient has had some red urine since the new Cortez placement. Presents for further evaluation. CT imaging interpreted by myself shows bilateral nephrolithiasis with no obvious acute ureteral lithiasis. Stents appear to be in adequate position. Cortez catheter is in place. No evidence of urinary retention. Patient has had adequate urinary output and bladder scan showed he is not retaining. He did request that I reach out to Dr. Asher who is on-call for urology. I spoke with him and he is in agreement the plan for discharge home. I did obtain a urinalysis which revealed a leukocytosis. Therefore we will continue the patient's antibiotics as the patient had recent instrumentation as well as recent Cortez catheter placement. He was otherwise asymptomatic and would like to go home. I believe this is reasonable. He will be discharged home at this time. Instructed follow-up with Dr. Bonds next week. I will provide the patient with a prescription for Keflex. I instructed the patient to follow up with their PCP in the next 1-3 days.. I explained that the patient should return to the emergency department if they experience any worsening symptoms. Strict return precautions were discussed with the patient. The patient expressed understanding of these instructions. I answered all questions that the patient had. The patient was discharged home in good condition with their prescriptions and follow up information. Diagnosis/symptom? @ -Cortez catheter malfunction Acute, or Chronic, or Acute on Chronic? @ -Acute Uncomplicated (without systemic symptoms) or Complicated (systemic symptoms)? @ -Complicated Side effects of treatment? @ -None Exacerbation, Progression, or Severe Exacerbation] @ -No Poses a threat to life or bodily function? @ -Unlikely (Anthony Knight) 73 male who had difficulty with urination Cortez was placed with no significant urinary output. Patient did have imaging for evaluation of placement of Cortez which does appear to be appropriate. Patient can be discharged (Alli Oconnell) - Lab Data Lab Results 12/31/23 Range/Units 09:07 Urine Color Light Red Urine Appearance Cloudy (Clear) Urine pH 6.5 (5.0-8.0) Ur Specific [place] 1.016 (1.001-1.035) Urine Protein 1+ H (Negative) Urine Glucose (UA) Negative (Negative) Urine Ketones Negative (Negative) Urine Blood Large H (Negative) Urine Nitrite Negative (Negative) Urine Bilirubin Negative (Negative) Urine Urobilinogen <2.0 (<2.0) mg/dL Ur Leukocyte Esterase Large H (Negative) Urine RBC >182 H (0-5) /hpf Urine WBC 16 H (0-5) /hpf Disposition Is patient prescribed a controlled substance at d/c from ED?: No Time of Disposition: 10:20 <Anthony Knight - Last Filed: 12/31/23 14:19> <Alli Oconnell - Last Filed: 12/31/23 23:44> Clinical Impression: Malfunction of Cortez catheter Disposition: HOME SELF-CARE Condition: Good Instructions (If sedation given, give patient instructions): Cortez Catheter Placement and Care (ED), How to Change a Catheter Drainage Bag (DC) Prescriptions: Cephalexin [Keflex] 500 mg PO Q12HR 5 Days #10 cap Referrals: Chito Henderson MD [Primary Care Provider] - 1-2 days Chase Harvey MD [STAFF PHYSICIAN] - 1-2 days
[2023-12-31 05:57] VITALS: RESP 18; TEMP 97.8
--- NOTE | 2023-12-31 07:56 | CT ---
EXAMINATION TYPE: CT abdomen pelvis wo con CT DLP: 1766.4 mGycm, Automated exposure control for dose reduction was used. DATE OF EXAM: 12/31/2023 7:02 AM COMPARISON: CT abdomen pelvis most recent from CLINICAL INDICATION:Male, 73 years old with history of pain,retention; Pain and retention TECHNIQUE: Axial CT abdomen pelvis wo con;Sagittal and coronal reformats were created on a separate workstation. Contrast used: mL of , (none if empty) Oral contrast used: without Oral Contrast (none if empty) FINDINGS: LOWER CHEST: Unremarkable ABDOMEN LIVER: Diffusely hypoattenuating parenchyma. GALLBLADDER AND BILE DUCTS: Multiple gallstones are layering dependently. PANCREAS: Lipomatous atrophy changes. 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 At least one of these is anterior to the liver while others are in the left upper quadrant and along the mesentery. ADRENAL GLANDS: Unremarkable. KIDNEYS AND URETERS: Bilateral ureteral stents with superior and inferior PICC is in appropriate posi tion. There is mild dilation the collecting systems. Trace air in the left renal pelvis/calyx likely insertion. There is bilateral nonobstructing calculi within the right measuring 11 mm on the left candelaria suring up to 10 mm. No evidence of hydronephrosis or renal calculus. The ureters are unremarkable. PELVIS BLADDER: Ureteral stents are visualized. Trace amount of gas in the gastric lumen. Cortez catheter in place. REPRODUCTIVE: Unremarkable. ABDOMEN & PELVIS STOMACH AND BOWEL: No evidence of bowel obstruction. Moderate amount stool in the rectum. PERITONEUM/RETROPERITONEUM: No evidence of pneumoperitoneum or free fluid. VASCULATURE: No evidence of aortic aneurysm. MUSCULOSKELETAL: No acute osseous abnormalities, multilevel degeneration changes throughout the spine . LYMPH NODES: No gross evidence for lymphadenopathy. SOFT TISSUE/ABDOMINAL WALL: Bilateral fat-containing hernias left greater than right. IMPRESSION: 1. Bilateral ureteral stents in appropriate position. 2. Bilateral nonobstructing renal calculi. 3. Cortez catheter in appropriate position. 4. Fat-containing ventral hernias bilaterally. 5. Umbilical hernia. 6. Cholelithiasis.
[2023-12-31 09:39] LABS: Appearance,Urine Cloudy (Clear); Bilirubin,Urine Negative (Negative); Blood,Urine Large (Negative); Color,Urine Light Red; Glucose,Urine (UA) Negative (Negative); Ketones,Urine Negative (Negative); Leukocyte Esterase,Urine Large (Negative); Nitrite,Urine Negative (Negative); PH, Urine 6.5 (5.0-8.0); Protein,Urine 1+ (Negative); RBC,Urine >182 /hpf (0-5); Specific Gravity,Urine 1.016 (1.001-1.035); Urobilinogen,Urine <2.0 mg/dL (<2.0); WBC,Urine 16 /hpf (0-5)
[2023-12-31] MEDS: ACET/COD 300 MG/30 MG STARTER PACK 6 TAB BTL PO STA (10:34)
[2023-12-31 11:20] VITALS: BP 160/88; PULSE 84
== END 2023-12-31 19:14 | disposition home or self-care (01) ==
LOC: EC 05:39
DX: T83.098A Other mechanical complication of other urinary catheter, initial encounter (principal); Z87.891 Personal history of nicotine dependence
CPT/HCPCS: 51702; 74176; 81001; 99284

== ENCOUNTER 2024-01-01 16:36 | Emergency (ER) | payer MEDICARE ==
--- NOTE | 2024-01-01 17:17 | ED ---
General Adult HPI - General Chief complaint: Urogenital Stated complaint: post op urology pain Time Seen by Provider: 01/01/24 16:53 Source: patient, family Mode of arrival: ambulatory - History of Present Illness Initial comments: 73-year-old male with a past medical history significant for recent lithotripsy on December 27 had a Cortez placed in the ED on December 28 secondary to urinary retention presenting to the ED secondary to dysuria. Reports since he had Cortez placed then he has had spasms of his penis. Today, noted an episode of spasms which was worse than usual he noted he looked at his penis after and noticed material hanging out of it not in the Cortez prompting presentation to the ED for further evaluation. Otherwise has been on antibiotics as prescribed. No abd ominal pain. No flank pain. No fever or chills. No other complaints at this time. - Related Data Home Medications Medication Instructions Recorded Confirmed Atorvastatin [Lipitor] 40 mg PO HS 12/23/23 12/28/23 Balance And Nature Fruit 2 tab PO DAILY 12/23/23 12/28/23 Balance And Nature Veggie 2 tab PO DAILY 12/23/23 12/28/23 Cholecalciferol [Vitamin D3 (125 125 mcg PO QAM 12/23/23 12/28/23 Mcg = 5000 Iu)] Clopidogrel [Plavix] 75 mg PO QAM 12/23/23 12/28/23 Doxycycline Hyclate 100 mg PO BID 12/23/23 12/28/23 Furosemide [Lasix] 40 mg PO QAM 12/23/23 12/28/23 Garlic 100 mg PO DAILY 12/23/23 12/28/23 Levothyroxine Sodium [Levoxyl] 100 mcg PO QAM 12/23/23 12/28/23 Losartan Potassium [Cozaar] 100 mg PO QAM 12/23/23 12/28/23 Magnesium Maelate 1 tab PO QAM 12/23/23 12/28/23 Metoprolol Tartrate [Lopressor] 50 mg PO BID 12/23/23 12/28/23 [place] 2 Plus Max 100 mg PO DAILY 12/23/23 12/28/23 Tirzepatide [Mounjaro] 15 mg SQ GARCIA 12/23/23 12/28/23 amLODIPine [Norvasc] 5 mg PO QAM 12/23/23 12/28/23 hydrALAZINE HCL 50 mg PO TID 12/23/23 12/28/23 Previous Rx's Medication Instructions Recorded Apixaban [Eliquis] 5 mg PO BID #60 tab 09/29/18 metFORMIN HCL [Glucophage] 1,000 mg PO BID #120 tab 09/29/18 Cephalexin [Keflex] 500 mg PO Q12HR 3 Days #6 cap 12/28/23 Ketorolac [Toradol] 10 mg PO Q6HR PRN #10 tab 12/28/23 Cephalexin [Keflex] 500 mg PO Q12HR 5 Days #10 cap 12/31/23 Allergies Allergy/AdvReac Type Severity Reaction Status Date / Time No Known Allergies Allergy Verified 12/31/23 05:44 Review of Systems ROS Statement: Those systems with pertinent positive or pertinent negative responses have been documented in the HPI. ROS Other: All systems not noted in ROS Statement are negative. Past Medical History Past Medical History: Atrial Fibrillation, Coronary Artery Disease (CAD), Diabetes Mellitus, Hyperlipidemia, Hypertension, Sleep Apnea/CPAP/BIPAP, Vascular Disorder Additional Past Medical History / Comment(s): Kidney stones bilaterally, unable to use cpap, PAD, SPLENECTOMY/IMMUNOCOMPROMISE, injury L lung "nerve cut" during surgery/decreased function History of Any Multi-Drug Resistant Organisms: None Reported Past Surgical History: Appendectomy, Coronary Bypass/CABG, Heart Catheterization With Stent Additional Past Surgical History / Comment(s): CABG X5 with redo, STENTS X2, SPLENECTOMY AT AGE 7, LYSIS OF ADHESIONS AGE 8 Past Anesthesia/Blood Transfusion Reactions: No Reported Reaction Date of Last Stent Placement:: 2012 Past Psychological History: No Psychological Hx Reported Smoking Status: Former smoker Past Alcohol Use History: None Reported Past Drug Use History: None Reported - Past Family History Brother(s) Family Medical History: Coronary Artery Disease (CAD), Myocardial Infarction ([place]) Additional Family Medical History / Comment(s): CABG General Exam General appearance: alert, in no apparent distress Eye exam: Present: normal appearance Neck exam: Present: normal inspection Respiratory exam: Present: normal lung sounds bilaterally Cardiovascular Exam: Present: regular rate GI/Abdominal exam: Present: soft, normal bowel sounds, other (No flank tenderness to percussion bilaterally. Cortez draining well.). Absent: distended, tenderness, guarding, rebound, rigid exam: Present: other (Patient does have a string hanging out his penis and opaque object from the string. This appears consistent with tape/tegaderm) Neurological exam: Present: alert, oriented X3 Skin exam: Present: warm, dry Course Vital Signs 01/01/24 01/01/24 16:42 18:52 Temperature 97.6 F Pulse Rate 90 84 Respiratory 16 18 Rate Blood Pressure 179/100 124/90 O2 Sat by Pulse 96 95 Oximetry Medical Decision Making - Medical Decision Making Was pt. sent in by a medical professional or institution (, PA, POLICE JUDGE, urgent care, hospital, or snf...) When possible be specific @ -No Did you speak to anyone other than the patient for history (EMS, parent, family, police, friend...)? What history was obtained from this source @ -No Did you review nursing and triage notes (agree or disagree)? Why? @ -I reviewed and agree with nursing and triage notes Were old charts reviewed (outside hosp., previous admission, EMS record, old EKG, old radiological studies, urgent care reports/EKG's, snf records)? Report findings @ -Prior chart reviewed. For further details please see HPI. Differential Diagnosis (chest pain, altered mental status, abdominal pain women, abdominal pain men, vaginal bleeding, weakness, fever, dyspnea, syncope, headache, dizziness, GI bleed, back pain, seizure, CVA, palpatations, mental health, musculoskeletal)? @ -Differential Abdominal Pain Men: Appendicitis, cholecystitis, diverticulosis, ischemic bowel, pancreatitis, hepatitis, UTI, gastroenteritis, AAA, incarcerated hernia, bowel obstruction, constipation, inflammatory bowel, hepatitis, peptic ulcer disease, splenic infarction, perforated viscus, testicular torsion, this is not meant to be an all-inclusive list EKG interpreted by me (3pts min.). @ -None X-rays interpreted by me (1pt min.). @ -KUB interpreted by me which showed bilateral stents in place. CT interpreted by me (1pt min.). @ -None done U/S interpreted by me (1pt. min.). @ -None done What testing was considered but not performed or refused? (CT, X-rays, U/S, labs)? Why? @ -None What meds were considered but not given or refused? Why? @ -None Did you discuss the management of the patient with other professionals (professionals i.e. , PA, POLICE JUDGE, lab, RT, psych nurse, health care social worker, system configuration specialist, teacher, youth liaison officer, caser shoe parts)? Give summary @ -No Was smoking cessation discussed for >3mins.? @ -No Was critical care preformed (if so, how long)? @ -No Were there social determinants of health that impacted care today? How? (Homelessness, low income, unemployed, alcoholism, drug addiction, transportation, low edu. Level, literacy, decrease access to med. care, penitentiary, rehab)? @ -No Was there de-escalation of care discussed even if they declined (Discuss DNR or withdrawal of care, Hospice)? DNR status @ -No What co-morbidities impacted this encounter? (DM, HTN, Smoking, COPD, CAD, Cancer, CVA, ARF, Chemo, Hep., AIDS, mental health diagnosis, sleep apnea, mo rbid obesity)? @ -None Was patient admitted / discharged? Hospital course, mention meds given and r oute, prescriptions, significant lab abnormalities, going to OR and other pertinent info. @ -Discharge 73-year-old male presenting recently status post lithotripsy with stent placement and Cortez placement in the ED on the with complaints of penile spasms. Has had this since Cortez was placed. However today notes he had a spasm which was worse than usual and states that he noticed a piece of plastic hanging from the tip of his penis. On examination this appears to be tape/Tegaderm which were holding the strings of the bilateral stents in place. Laboratory studies reviewed. CBC shows an elevated white blood cell count of 12.4, chemistry panel largely unremarkable. Urine does show greater than 182 red blood cells. Cortez draining without any difficulty. This was flushed successfully and irrigated. Patient advised to continue taking antibiotics as prescribed. Discharged home in stable condition and advised follow-up with his urologist as scheduled this following Wednesday. Discussed return precautions with patient who verbalized agreement. Undiagnosed new problem with uncertain prognosis? @ -No Drug Therapy requiring intensive monitoring for toxicity (Heparin, Nitro, Insulin, Cardizem)? @ -No Were any procedures done? @ -No Diagnosis/symptom? @ -Status post lithotripsy with bilateral stents, urinary retention with Cortez catheter in place Acute, or Chronic, or Acute on Chronic? @ -Acute Uncomplicated (without systemic symptoms) or Complicated (systemic symptoms)? @ -Uncomplicated Side effects of treatment? @ -No Exacerbation, Progression, or Severe Exacerbation? @ -No Poses a threat to life or bodily function? How? (Chest pain, [place], [place], pneumonia, PE, COPD, DKA, ARF, appy, cholecystitis, CVA, Diverticulitis, Homicidal, Suicidal, threat to staff... and all critical care pts) @ -No - Lab Data Result diagrams: 01/01/24 17:48 01/01/24 17:48 Lab Results 01/01/24 01/01/24 01/01/24 Range/Units 17:48 17:48 17:48 WBC 12.4 H (3.8-10.6) k/uL RBC 4.83 (4.30-5.90) m/uL Hgb 14.5 (13.0-17.5) gm/dL Hct 45.3 (39.0-53.0) % MCV 93.9 (80.0-100.0) fL MCH 30.1 (25.0-35.0) pg MCHC 32.0 (31.0-37.0) g/dL RDW 14.0 (11.5-15.5) % Plt Count 371 (150-450) k/uL MPV 8.3 Neutrophils % 71 % Lymphocytes % 15 % Monocytes % 7 % Eosinophils % 6 % Basophils % 0 % Neutrophils # 8.8 H (1.3-7.7) k/uL Lymphocytes # 1.9 (1.0-4.8) k/uL Monocytes # 0.8 (0-1.0) k/uL Eosinophils # 0.8 H (0-0.7) k/uL Basophils # 0.0 (0-0.2) k/uL Sodium 140 (137-145) mmol/L Potassium 4.2 (3.5-5.1) mmol/L Chloride 103 (98-107) mmol/L Carbon Dioxide 21 L (22-30) mmol/L Anion Gap 16 mmol/L BUN 25 H (9-20) mg/dL Creatinine 1.07 (0.66-1.25) mg/dL Est GFR (CKD-EPI)AfAm 80 (>60 ml/min/1.73 sqM) Est GFR (CKD-EPI)NonAf 69 (>60 ml/min/1.73 sqM) Glucose 185 H (74-99) mg/dL Calcium 10.2 (8.4-10.2) mg/dL Total Bilirubin 0.6 (0.2-1.3) mg/dL AST 30 (17-59) U/L ALT 39 (4-49) U/L Alkaline Phosphatase 124 (38-126) U/L Total Protein 7.4 (6.3-8.2) g/dL Albumin 4.4 (3.5-5.0) g/dL Urine Color Red Urine Appearance Cloudy (Clear) Urine RBC >182 H (0-5) /hpf Urine WBC 35 H (0-5) /hpf Disposition Clinical Impression: Urinary retention Disposition: HOME SELF-CARE Condition: Good Additional Instructions: Please return to the Emergency Department if symptoms worsen or any other concerns. Please follow-up with urology as scheduled. Is patient prescribed a controlled substance at d/c from ED?: No Referrals: Chito Henderson MD [Primary Care Provider] - 1-2 days Time of Disposition: 19:45
[2024-01-01 18:19] LABS: Basophils % (A) 0 %; Eosinophils # (A) 0.8 k/uL (0-0.7); Eosinophils % (A) 6 %; HCT 45.3 % (39.0-53.0); HGB 14.5 gm/dL (13.0-17.5); Lymphocytes # (A) 1.9 k/uL (1.0-4.8); Lymphocytes % (A) 15 %; MCH 30.1 pg (25.0-35.0); MCV 93.9 fL (80.0-100.0); Mean Platelet Volume 8.3; Monocytes # (A) 0.8 k/uL (0-1.0); Monocytes % (A) 7 %; Neutrophils # (A) 8.8 k/uL (1.3-7.7); Neutrophils % (A) 71 %; Platelet Count 371 k/uL (150-450); RBC 4.83 m/uL (4.30-5.90); WBC 12.4 k/uL (3.8-10.6)
[2024-01-01 18:32] LABS: ALT 39 U/L (4-49); AST 30 U/L (17-59); African American GFR (CKD) 80 (>60 ml/min/1.73 sqM); Albumin 4.4 g/dL (3.5-5.0); Alkaline Phosphatase 124 U/L (38-126); Anion Gap 16 mmol/L; Blood Urea Nitrogen 25 mg/dL (9-20); Calcium 10.2 mg/dL (8.4-10.2); Carbon Dioxide 21 mmol/L (22-30); Chloride 103 mmol/L (98-107); Glucose 185 mg/dL (74-99); Non-African American GFR(CKD) 69 (>60 ml/min/1.73 sqM); Potassium 4.2 mmol/L (3.5-5.1); Sodium 140 mmol/L (137-145); Total Bilirubin 0.6 mg/dL (0.2-1.3); Total Protein 7.4 g/dL (6.3-8.2)
--- NOTE | 2024-01-01 18:40 | XR ---
EXAMINATION TYPE: XR KUB DATE OF EXAM: 01/01/2024 6:20 PM CLINICAL INDICATION:Male, 73 years old with history of Hx lithotripsy s/p stent placement diana.; [facility] COMPARISON: 12/28/2023. TECHNIQUE: One radiographic view of the abdomen was obtained. FINDINGS: The bowel gas pattern is nonspecific without dilated loops of small or large bowel. There i s no evidence for organomegaly or pneumoperitoneum. The osseous structures are intact. Fecal materia l and gas are demonstrated throughout the colon and rectum. Bilateral ureteral stents with proximal and distal pigtail portions felt to be in appropriate position. There is at least one left renal calc ulus visualized measuring 5 mm. IMPRESSION: 1. Bilateral ureteral stents appear in appropriate position. Left renal calculi visualized. 2. Nonspecific bowel gas pattern without radiographic evidence for acute process.
[2024-01-01 18:58] LABS: Appearance,Urine Cloudy (Clear); Color,Urine Red
[2024-01-01 19:09] LABS: RBC,Urine >182 /hpf (0-5); WBC,Urine 35 /hpf (0-5)
[2024-01-01 20:31] VITALS: BP 126/89; PULSE 88; RESP 16; TEMP 97.8
== END 2024-01-01 20:20 | disposition home or self-care (01) ==
LOC: EC 16:36
DX: R33.9 Retention of urine, unspecified (principal); Z87.891 Personal history of nicotine dependence; Z95.1 Presence of aortocoronary bypass graft
CPT/HCPCS: 36415; 51702; 74018; 80053; 81001; 85025; 99283